=== PATIENT | female | born 1945 | race Two or more races ===

== ENCOUNTER → 2016-11-10 | Outpatient (CLI) | payer MEDICARE, MEDICAID, OTHER ==
[~2016-11-10] MED LIST: ASP81EC PO; CALCTAB62 OR; CERT200K SC; FENO1TAB PO; FENO35TA2 PO; LEVO50TA7 PO; MELO-85 PO; METH2.5T3 PO; METO25TA62 PO; PREDPOW63
[2016-11-10 09:48] LABS: Basophils # (auto) 0.1 uL; Basophils % (auto) 0.7 % (0.0-2.0); Eosinophils # (auto) 0.1 uL; Hematocrit 39.5 % (36.0-46.0); Hemoglobin 12.6 g/dL (12.2-16.2); Mean Corpuscular Hemoglobin 30.9 pg (28.0-32.0); Mean Corpuscular Hgb Conc. 31.9 g/dL (32.0-36.0); Mean Corpuscular Volume 96.9 fL (80.0-100.0); Mean Platelet Volume 7.5 fL (7.4-10.4); Monocytes # (auto) 0.7 uL; Monocytes % (auto) 7.9 % (0.0-12.0); Neutrophils # (auto) 4.6 uL; Neutrophils % (auto) 54.4 % (37.0-80.0); Platelet Count (auto) 287 10^3/uL (140-450); Red Cell Distribution Width 15.4 % (11.6-16.0); White Blood Cell 8.4 10^3/uL (4.4-10.8)
[2016-11-10 10:01] LABS: Urine Bilirubin Negative (Negative); Urine Blood TRACE /uL (Negative); Urine Color Yellow (Yellow); Urine Glucose Normal (Normal); Urine Ketone Negative (Negative); Urine Mucus FEW (None Seen); Urine RBC 4 /hpf (0 - 4); Urine Squamous Epithelial Cell FEW /hpf (<5); Urine Urobilinogen Normal (Negative); Urine WBC Clumps PRESENT /hpf (None Seen); Urine pH 5.5 (5.0-8.0)
[2016-11-10 10:06] LABS: Urine Nitrite POSITIVE (Negative)
[2016-11-10 10:29] LABS: BUN/Creatinine Ratio 16.5; Bilirubin, Total 0.5 mg/dL (0.2-1.0); Potassium 4.4 mmol/L (3.5-5.1); Total Protein 7.2 g/dL (6.4-8.2)
== END | disposition home or self-care (01) ==
LOC: LAB 09:11
DX: I10 Essential (primary) hypertension (principal); M06.9 Rheumatoid arthritis, unspecified
CPT/HCPCS: 36415; 80053; 80061; 81001; 84443; 85025; 85652

== ENCOUNTER → 2017-08-03 | Outpatient (CLI) | payer MEDICARE, MEDICAID, OTHER ==
[~2017-08-03] MED LIST changes: -MELO-85 PO; +MELO1TAB73 PO
[2017-08-03 08:30] LABS: Urine RBC None Seen /hpf (0 - 4)
[2017-08-03 09:15] LABS: Urine Bilirubin Negative (Negative); Urine Blood Negative /uL (Negative); Urine Color Yellow (Yellow); Urine Glucose Normal (Normal); Urine Ketone Negative (Negative); Urine Mucus FEW (None Seen); Urine Nitrite Negative (Negative); Urine Squamous Epithelial Cell FEW /hpf (<5); Urine Urobilinogen Normal (Negative); Urine pH 5.5 (5.0-8.0)
== END | disposition home or self-care (01) ==
LOC: LAB 08:21
PROVIDERS: ATTEND Family Medicine
DX: N39.0 Urinary tract infection, site not specified (principal)
CPT/HCPCS: 81001; 87086

== ENCOUNTER → 2017-09-07 | Outpatient (CLI) | payer MEDICARE, OTHER ==
[2017-09-07 12:00] LABS: Basophils # (auto) 0.1 uL; Basophils % (auto) 0.9 % (0.0-2.0); Eosinophils # (auto) 0.1 uL; Eosinophils % (auto) 1.8 % (0.0-7.0); Hematocrit 38.8 % (36.0-46.0); Lymphocytes # (auto) 1.8 uL; Lymphocytes % (auto) 32.9 % (10.0-50.0); Mean Corpuscular Hemoglobin 32.3 pg (28.0-32.0); Mean Corpuscular Hgb Conc. 33.4 g/dL (32.0-36.0); Mean Corpuscular Volume 96.7 fL (80.0-100.0); Mean Platelet Volume 7.8 fL (6.9-10.8); Monocytes # (auto) 0.6 uL; Monocytes % (auto) 10.6 % (0.0-12.0); Neutrophils % (auto) 53.8 % (37.0-80.0); Nucleated Red Blood Cells % 0.1 %; Platelet Count (auto) 216 10^3/uL (140-450); Red Cell Distribution Width 15.2 % (11.8-14.3); White Blood Cell 5.6 10^3/uL (4.4-10.8)
[2017-09-07 12:51] LABS: Albumin 3.8 g/dL (3.4-5.0); BUN/Creatinine Ratio 15.9; Bilirubin, Total 0.8 mg/dL (0.2-1.0); Calcium 8.8 mg/dL (8.5-10.1); Potassium 3.8 mmol/L (3.5-5.1); Total Protein 7.3 g/dL (6.4-8.2)
== END | disposition home or self-care (01) ==
LOC: LAB 11:31
DX: I10 Essential (primary) hypertension (principal); M06.9 Rheumatoid arthritis, unspecified; I70.0 Atherosclerosis of aorta; E78.00 Pure hypercholesterolemia, unspecified; D64.9 Anemia, unspecified; Z79.899 Other long term (current) drug therapy
CPT/HCPCS: 36415; 80053; 85025; 85652; 86141

== ENCOUNTER → 2017-10-19 | Outpatient (CLI) | payer MEDICARE, OTHER ==
[2017-10-19 09:03] LABS: Basophils # (auto) 0.1 uL; Basophils % (auto) 0.9 % (0.0-2.0); Eosinophils # (auto) 0.1 uL; Eosinophils % (auto) 0.7 % (0.0-7.0); Hematocrit 39.9 % (36.0-46.0); Hemoglobin 13.3 g/dL (12.2-16.2); Lymphocytes # (auto) 2.4 uL; Lymphocytes % (auto) 32.1 % (10.0-50.0); Mean Corpuscular Hemoglobin 32.3 pg (28.0-32.0); Mean Corpuscular Hgb Conc. 33.5 g/dL (32.0-36.0); Mean Corpuscular Volume 96.4 fL (80.0-100.0); Monocytes # (auto) 0.5 uL; Monocytes % (auto) 6.3 % (0.0-12.0); Neutrophils # (auto) 4.5 uL; Nucleated Red Blood Cells % 0.1 %; Platelet Count (auto) 227 10^3/uL (140-450); Red Blood Cells 4.14 10^6/uL (4.0-5.20); White Blood Cell 7.4 10^3/uL (4.4-10.8)
[2017-10-19 09:36] LABS: Urine Bacteria NONE SEEN /hpf (None Seen); Urine Blood Negative /uL (Negative); Urine Mucus FEW (None Seen); Urine Specific Gravity 1.014 (1.001-1.035); Urine WBC 5 /hpf (0 - 5)
[2017-10-19 09:54] LABS: Albumin 3.7 g/dL (3.4-5.0); BUN/Creatinine Ratio 13.3; Bilirubin, Total 0.8 mg/dL (0.2-1.0); Potassium 3.6 mmol/L (3.5-5.1); Total Protein 7.2 g/dL (6.4-8.2)
== END | disposition home or self-care (01) ==
LOC: LAB 08:26
PROVIDERS: ATTEND Nurse Practitioner
DX: E78.00 Pure hypercholesterolemia, unspecified (principal); M81.0 Age-related osteoporosis without current pathological fracture; R73.09 Other abnormal glucose
CPT/HCPCS: 36415; 80053; 80061; 81001; 82306; 83036; 84443; 85025

== ENCOUNTER → 2018-05-19 | Outpatient (CLI) | payer MEDICARE, OTHER ==
[2018-05-19 08:05] LABS: Basophils # (auto) 0.1 uL; Basophils % (auto) 0.7 % (0.0-2.0); Eosinophils # (auto) 0.1 uL; Eosinophils % (auto) 1.4 % (0.0-7.0); Hemoglobin 12.7 g/dL (12.2-16.2); Lymphocytes # (auto) 2.5 uL; Lymphocytes % (auto) 35.2 % (10.0-50.0); Mean Corpuscular Hemoglobin 32.4 pg (28.0-32.0); Mean Corpuscular Hgb Conc. 33.3 g/dL (32.0-36.0); Mean Corpuscular Volume 97.5 fL (80.0-100.0); Monocytes # (auto) 0.5 uL; Monocytes % (auto) 7.1 % (0.0-12.0); Neutrophils % (auto) 55.6 % (37.0-80.0); Platelet Count (auto) 228 10^3/uL (140-450); Red Cell Distribution Width 16.3 % (11.8-14.3); White Blood Cell 7.2 10^3/uL (4.4-10.8)
[2018-05-19 08:08] LABS: Urine Bacteria MANY /hpf (None Seen); Urine Blood Negative /uL (Negative); Urine Specific Gravity 1.011 (1.001-1.035); Urine WBC 37 /hpf (0 - 5)
[2018-05-19 09:16] LABS: Folate (Folic Acid) 13.47 ng/mL (5.38-24)
[2018-05-19 09:22] LABS: Albumin 3.5 g/dL (3.4-5.0); BUN/Creatinine Ratio 15.4; Bilirubin, Total 0.6 mg/dL (0.2-1.0); Calcium 8.3 mg/dL (8.5-10.1); Potassium 3.8 mmol/L (3.5-5.1); Total Protein 7.1 g/dL (6.4-8.2)
== END | disposition home or self-care (01) ==
LOC: LAB 07:29
PROVIDERS: ATTEND Nurse Practitioner
DX: M06.9 Rheumatoid arthritis, unspecified (principal); I10 Essential (primary) hypertension; E78.5 Hyperlipidemia, unspecified; R68.89 Other general symptoms and signs; E55.9 Vitamin D deficiency, unspecified; E78.00 Pure hypercholesterolemia, unspecified; Z79.899 Other long term (current) drug therapy
CPT/HCPCS: 36415; 80053; 80061; 81001; 82306; 82607; 82746; 84443; 85025

== ENCOUNTER → 2019-06-27 | Outpatient (CLI) | payer MEDICARE, OTHER ==
[2019-06-27 08:58] LABS: Urine Bacteria MANY /hpf (None Seen); Urine Blood Negative /uL (Negative); Urine Specific Gravity 1.013 (1.001-1.035); Urine WBC 65 /hpf (0 - 5)
[2019-06-27 09:02] LABS: Basophils # (auto) 0 uL; Basophils % (auto) 0.8 % (0.0-2.0); Eosinophils # (auto) 0.1 uL; Eosinophils % (auto) 1.8 % (0.0-7.0); Hematocrit 38.2 % (36.0-46.0); Hemoglobin 12.7 g/dL (12.2-16.2); Lymphocytes # (auto) 1.5 uL; Lymphocytes % (auto) 28.5 % (10.0-50.0); Mean Corpuscular Hemoglobin 32.8 pg (28.0-32.0); Mean Corpuscular Hgb Conc. 33.4 g/dL (32.0-36.0); Mean Corpuscular Volume 98.3 fL (80.0-100.0); Monocytes # (auto) 0.5 uL; Monocytes % (auto) 9.5 % (0.0-12.0); Neutrophils # (auto) 3.2 uL; Neutrophils % (auto) 59.4 % (37.0-80.0); Nucleated Red Blood Cells % 0.1 %; Platelet Count (auto) 214 10^3/uL (140-450); Red Blood Cells 3.89 10^6/uL (4.0-5.20); Red Cell Distribution Width 15.6 % (11.8-14.3); White Blood Cell 5.4 10^3/uL (4.4-10.8)
[2019-06-27 09:15] LABS: Potassium 3.7 mmol/L (3.5-5.1)
[2019-06-27 09:23] LABS: Albumin 3.7 g/dL (3.4-5.0); BUN/Creatinine Ratio 16.7; Bilirubin, Total 0.6 mg/dL (0.2-1.0); Calcium 8.8 mg/dL (8.5-10.1)
== END | disposition home or self-care (01) ==
LOC: LAB 08:22
PROVIDERS: ATTEND Nurse Practitioner
DX: E78.5 Hyperlipidemia, unspecified (principal); I10 Essential (primary) hypertension; E78.00 Pure hypercholesterolemia, unspecified; Z79.899 Other long term (current) drug therapy
CPT/HCPCS: 36415; 80053; 80061; 81001; 82270; 82306; 84443; 85025

== ENCOUNTER → 2019-08-29 | Outpatient (CLI) | payer MEDICARE, OTHER ==
[2019-08-29 11:38] LABS: Urine Bacteria NONE SEEN /hpf (None Seen); Urine Blood Negative /uL (Negative); Urine Hyaline Cast FEW /lpf (0 - 2); Urine Mucus FEW (None Seen); Urine Specific Gravity 1.014 (1.001-1.035); Urine WBC 15 /hpf (0 - 5)
== END | disposition home or self-care (01) ==
LOC: LAB 11:21
PROVIDERS: ATTEND Nurse Practitioner
DX: N39.0 Urinary tract infection, site not specified (principal); I10 Essential (primary) hypertension; E78.5 Hyperlipidemia, unspecified; E78.00 Pure hypercholesterolemia, unspecified
CPT/HCPCS: 81001; 87086

== ENCOUNTER → 2019-10-24 | Outpatient (CLI) | payer MEDICARE, OTHER ==
[~2019-10-24] MED LIST changes: -METO25TA62 PO; +METO25TA93 PO
[2019-10-24 14:47] LABS: Basophils # (auto) 0.1 uL; Basophils % (auto) 0.7 % (0.0-2.0); Eosinophils # (auto) 0.1 uL; Eosinophils % (auto) 0.9 % (0.0-7.0); Hematocrit 39.1 % (36.0-46.0); Hemoglobin 13.2 g/dL (12.2-16.2); Lymphocytes # (auto) 1.9 uL; Lymphocytes % (auto) 25.1 % (10.0-50.0); Mean Corpuscular Hemoglobin 33.1 pg (28.0-32.0); Mean Corpuscular Hgb Conc. 33.7 g/dL (32.0-36.0); Mean Corpuscular Volume 98.1 fL (80.0-100.0); Monocytes # (auto) 0.6 uL; Monocytes % (auto) 7.1 % (0.0-12.0); Neutrophils # (auto) 5.1 uL; Neutrophils % (auto) 66.2 % (37.0-80.0); Nucleated Red Blood Cells % 0.1 %; Platelet Count (auto) 224 10^3/uL (140-450); Red Blood Cells 3.99 10^6/uL (4.0-5.20); Red Cell Distribution Width 15.2 % (11.8-14.3); White Blood Cell 7.7 10^3/uL (4.4-10.8)
[2019-10-24 15:06] LABS: Albumin 3.7 g/dL (3.4-5.0); Calcium 9.3 mg/dL (8.5-10.1); Potassium 3.2 mmol/L (3.5-5.1)
[2019-10-24 15:10] LABS: BUN/Creatinine Ratio 14.6; Bilirubin, Total 0.3 mg/dL (0.2-1.0); CRP High Sensitivity 0.4 mg/dL (< 0.3); Total Protein 7.2 g/dL (6.4-8.2)
== END | disposition home or self-care (01) ==
LOC: LAB 14:01
PROVIDERS: ATTEND Internal Medicine Rheumatology
DX: M05.79 Rheumatoid arthritis with rheumatoid factor of multiple sites without organ or systems involvement (principal); M19.90 Unspecified osteoarthritis, unspecified site; E78.01 Familial hypercholesterolemia
CPT/HCPCS: 36415; 80053; 85025; 85652; 86141; 86200; 86431

== ENCOUNTER → 2021-03-25 | Outpatient (CLI) | payer MEDICARE, OTHER ==
[~2021-03-25] MED LIST changes: -ASP81EC PO; +ASPI-394 PO; +METH2.5T PO; -METH2.5T3 PO
[2021-03-25 08:30] LABS: Basophils # (auto) 0 10 ^3/uL (0-0.2); Basophils % (auto) 0.6 % (0.0-2.0); Eosinophils # (auto) 0.1 10 ^3/uL (0-0.8); Eosinophils % (auto) 1.5 % (0.0-7.0); Hematocrit 37.5 % (36.0-46.0); Hemoglobin 12.8 g/dL (12.2-16.2); Lymphocytes # (auto) 2.7 10 ^3/uL (0.4-5.4); Lymphocytes % (auto) 37.3 % (10.0-50.0); Mean Corpuscular Hemoglobin 32.2 pg (28.0-32.0); Mean Corpuscular Volume 94.6 fL (80.0-100.0); Monocytes # (auto) 0.5 10 ^3/uL (0-1.3); Monocytes % (auto) 6.6 % (0.0-12.0); Neutrophils # (auto) 3.9 10 ^3/uL (1.6-8.6); Platelet Count (auto) 219 10^3/uL (140-450); Red Blood Cells 3.97 10^6/uL (4.0-5.20); Red Cell Distribution Width 15.1 % (11.8-14.3); White Blood Cell 7.2 10^3/uL (4.4-10.8)
[2021-03-25 08:47] LABS: Urine Bacteria MANY /hpf (None Seen); Urine Blood Negative /uL (Negative); Urine Specific Gravity 1.013 (1.001-1.035); Urine WBC 110 /hpf (0 - 5); Urine WBC Clumps PRESENT /hpf (None Seen)
[2021-03-25 08:56] LABS: Albumin 3.6 g/dL (3.4-5.0); Potassium 3.7 mmol/L (3.5-5.1)
[2021-03-25 09:04] LABS: BUN/Creatinine Ratio 18.2; Bilirubin, Total 0.5 mg/dL (0.2-1.0); Calcium 8.7 mg/dL (8.5-10.1); Total Protein 6.9 g/dL (6.4-8.2)
== END | disposition home or self-care (01) ==
LOC: LAB 08:14
PROVIDERS: ATTEND Student in an Organized Health Care Education/Training Program
DX: I10 Essential (primary) hypertension (principal); E03.9 Hypothyroidism, unspecified; R73.03 Prediabetes
CPT/HCPCS: 36415; 80053; 80061; 81001; 83036; 84443; 85025

== ENCOUNTER → 2021-05-06 | Outpatient (CLI) | payer MEDICARE, OTHER ==
[2021-05-06 16:13] LABS: Basophils # (auto) 0 10 ^3/uL (0-0.2); Basophils % (auto) 0.5 % (0.0-2.0); Eosinophils # (auto) 0.1 10 ^3/uL (0-0.8); Eosinophils % (auto) 1.2 % (0.0-7.0); Hematocrit 38.4 % (36.0-46.0); Lymphocytes # (auto) 1.4 10 ^3/uL (0.4-5.4); Lymphocytes % (auto) 16.5 % (10.0-50.0); Mean Corpuscular Hemoglobin 32.2 pg (28.0-32.0); Mean Corpuscular Hgb Conc. 33.7 g/dL (32.0-36.0); Mean Corpuscular Volume 95.4 fL (80.0-100.0); Monocytes # (auto) 0.4 10 ^3/uL (0-1.3); Monocytes % (auto) 4.9 % (0.0-12.0); Neutrophils # (auto) 6.3 10 ^3/uL (1.6-8.6); Neutrophils % (auto) 76.9 % (37.0-80.0); Nucleated Red Blood Cells % 0.1 %; Red Blood Cells 4.03 10^6/uL (4.0-5.20); Red Cell Distribution Width 15.8 % (11.8-14.3); White Blood Cell 8.2 10^3/uL (4.4-10.8)
[2021-05-06 16:35] LABS: Potassium 3.8 mmol/L (3.5-5.1)
[2021-05-06 16:41] LABS: Albumin 3.8 g/dL (3.4-5.0); Bilirubin, Total 0.4 mg/dL (0.2-1.0); CRP High Sensitivity 0.39 mg/dL (< 0.3); Total Protein 7.4 g/dL (6.4-8.2)
== END | disposition home or self-care (01) ==
LOC: LAB 15:28
PROVIDERS: ATTEND Internal Medicine Rheumatology
DX: Z11.1 Encounter for screening for respiratory tuberculosis (principal); M81.0 Age-related osteoporosis without current pathological fracture; M05.79 Rheumatoid arthritis with rheumatoid factor of multiple sites without organ or systems involvement
CPT/HCPCS: 36415; 80053; 82306; 85025; 85652; 86141; 86200; 86431

== ENCOUNTER → 2022-04-07 | Outpatient (CLI) | payer MEDICARE, OTHER ==
[2022-04-07 08:00] LABS: Basophils # (auto) 0 10 ^3/uL (0-0.2); Basophils % (auto) 0.4 % (0.0-2.0); Eosinophils # (auto) 0.1 10 ^3/uL (0-0.8); Eosinophils % (auto) 1.8 % (0.0-7.0); Hematocrit 36.5 % (36.0-46.0); Lymphocytes # (auto) 2.6 10 ^3/uL (0.4-5.4); Lymphocytes % (auto) 35.5 % (10.0-50.0); Mean Corpuscular Hemoglobin 32.2 pg (28.0-32.0); Mean Corpuscular Hgb Conc. 32.9 g/dL (32.0-36.0); Mean Corpuscular Volume 98.1 fL (80.0-100.0); Monocytes # (auto) 0.5 10 ^3/uL (0-1.3); Monocytes % (auto) 7.5 % (0.0-12.0); Neutrophils % (auto) 54.8 % (37.0-80.0); Nucleated Red Blood Cells % 0.1 %; Red Blood Cells 3.72 10^6/uL (4.0-5.20); Red Cell Distribution Width 14.7 % (11.8-14.3); White Blood Cell 7.2 10^3/uL (4.4-10.8)
[2022-04-07 08:28] LABS: Albumin 3.4 g/dL (3.4-5.0); Calcium 8.4 mg/dL (8.5-10.1); Potassium 3.6 mmol/L (3.5-5.1); Urine Bacteria MOD /hpf (None Seen); Urine Blood Negative /uL (Negative); Urine Specific Gravity 1.013 (1.001-1.035); Urine WBC 221 /hpf (0 - 5)
[2022-04-07 08:32] LABS: BUN/Creatinine Ratio 17.8; Bilirubin, Total 0.4 mg/dL (0.2-1.0); Total Protein 6.5 g/dL (6.4-8.2)
== END | disposition home or self-care (01) ==
LOC: LAB 07:28
PROVIDERS: ATTEND Student in an Organized Health Care Education/Training Program
DX: N39.0 Urinary tract infection, site not specified (principal); I10 Essential (primary) hypertension
CPT/HCPCS: 36415; 80053; 80061; 81001; 84443; 85025; 87086

== ENCOUNTER 2022-06-09 11:35 | Emergency (ER) | payer MEDICARE, OTHER | END 2022-06-09 14:25 | disposition left against medical advice (07) | LOC: ER 11:35 | DX: R25.1 Tremor, unspecified (principal); Z53.21 Procedure and treatment not carried out due to patient leaving prior to being seen by health care provider ==

== ENCOUNTER 2022-07-04 18:50 | Inpatient (IN) | payer MEDICARE, OTHER ==
[~2022-07-04] VITALS: Ht 157.5 cm; Wt 90.6 kg
[2022-07-04 20:16] LABS: Basophils # (auto) 0.1 10 ^3/uL (0-0.2); Basophils % (auto) 0.8 % (0.0-2.0); Eosinophils # (auto) 0.3 10 ^3/uL (0-0.8); Hematocrit 38.7 % (36.0-46.0); Lymphocytes # (auto) 0.9 10 ^3/uL (0.4-5.4); Lymphocytes % (auto) 10.7 % (10.0-50.0); Mean Corpuscular Hemoglobin 32.3 pg (28.0-32.0); Mean Corpuscular Hgb Conc. 33.7 g/dL (32.0-36.0); Monocytes # (auto) 0.7 10 ^3/uL (0-1.3); Monocytes % (auto) 7.7 % (0.0-12.0); Neutrophils # (auto) 6.8 10 ^3/uL (1.6-8.6); Neutrophils % (auto) 77.8 % (37.0-80.0); Red Blood Cells 4.03 10^6/uL (4.0-5.20); Red Cell Distribution Width 16.7 % (11.8-14.3); White Blood Cell 8.8 10^3/uL (4.4-10.8)
[2022-07-04 20:28] LABS: Albumin 3.3 g/dL (3.4-5.0); Calcium 8.9 mg/dL (8.5-10.1); Potassium 3.9 mmol/L (3.5-5.1)
[2022-07-04 20:31] LABS: BUN/Creatinine Ratio 13.5; Bilirubin, Total 0.6 mg/dL (0.2-1.0); Total Protein 6.5 g/dL (6.4-8.2)
[2022-07-04] MEDS ORDERED: methylPREDNISolone SOD SUCC 125 MG/2 ML VL IV ONE (22:00)
[2022-07-04] MEDS ORDERED: IOHEXOL 350 MG/ML 100ML IJ ONE (23:24)
[2022-07-04] MEDS ORDERED: NITROGLYCERIN 0.4 MG SL TAB SL PRN (23:45)
[2022-07-04] MEDS ORDERED: MORPHINE SULFATE INJ 2 MG/ml SYRG IV PRN (23:45)
[2022-07-04] MEDS ORDERED: cefTRIAXone 1GM/50ML D5W 50 ML IV ONE (23:45)
[2022-07-04] MEDS ORDERED: HYDROcodone-ACET 5/325MG TAB PO PRN (23:45)
[2022-07-04] MEDS ORDERED: ACETAMINOPHEN 325 MG TAB PO PRN (23:45)
[2022-07-04] MEDS ORDERED: ONDANSETRON HCL 4 MG/2 ML VIAL IV PRN (23:45)
[2022-07-04] MEDS ORDERED: DOCUSATE SOD 100 MG CAP PO PRN (23:45)
[2022-07-04 23:49] VITALS: BP 119/67
[2022-07-05] MEDS: IPRATROPIUM BROM 0.5 MG/2.5ML INH SOL NEB SCH ×3 (06:08→20:43)
[2022-07-05] MEDS: ALBUTEROL SULF 2.5 MG/0.5ML(0.5%) NEB SOLN NEB SCH ×3 (06:08→20:43)
[2022-07-05 06:19] LABS: Basophils # (auto) 0.1 10 ^3/uL (0-0.2); Basophils % (auto) 0.6 % (0.0-2.0); Eosinophils # (auto) 0 10 ^3/uL (0-0.8); Eosinophils % (auto) 0.5 % (0.0-7.0); Hematocrit 38.2 % (36.0-46.0); Hemoglobin 12.7 g/dL (12.2-16.2); Lymphocytes # (auto) 0.8 10 ^3/uL (0.4-5.4); Lymphocytes % (auto) 8.5 % (10.0-50.0); Mean Corpuscular Hemoglobin 32.2 pg (28.0-32.0); Mean Corpuscular Hgb Conc. 33.3 g/dL (32.0-36.0); Mean Corpuscular Volume 96.9 fL (80.0-100.0); Monocytes # (auto) 0.2 10 ^3/uL (0-1.3); Monocytes % (auto) 2.1 % (0.0-12.0); Neutrophils # (auto) 7.8 10 ^3/uL (1.6-8.6); Neutrophils % (auto) 88.3 % (37.0-80.0); Red Blood Cells 3.94 10^6/uL (4.0-5.20); Red Cell Distribution Width 16.4 % (11.8-14.3); White Blood Cell 8.8 10^3/uL (4.4-10.8)
[2022-07-05 06:34] LABS: BUN/Creatinine Ratio 19.2; Calcium 8.9 mg/dL (8.5-10.1); Potassium 4.7 mmol/L (3.5-5.1)
[2022-07-05] MEDS: LEVOTHYROXINE SODIUM 50 MCG TAB PO SCH (07:11)
[2022-07-05] MEDS ORDERED: ENOXAPARIN SOD 30 MG/0.3 ML SYRINGE SC SCH (10:00)
[2022-07-05] MEDS: cefTRIAXone 1GM/50ML D5W 50 ML IV SCH (10:28)
[2022-07-05] MEDS: ASPirin-EC 81 mg tab PO SCH (10:28)
[2022-07-05] MEDS: ENOXAPARIN SOD 40 MG/0.4 ML SYRINGE SC SCH (10:29)
[2022-07-05] MEDS: AZITHROMYCIN 500MG/ 250ML 250 ML IV SCH (14:25)
[2022-07-05 18:10] VITALS: BP 120/66
[2022-07-05 19:41] VITALS: BP 120/66
[2022-07-05 19:51] VITALS: BP 120/73
[2022-07-05 22:00] VITALS: BP 120/67
[2022-07-06 05:00] VITALS: BP 112/63
[2022-07-06] MEDS: ALBUTEROL SULF 2.5 MG/0.5ML(0.5%) NEB SOLN NEB SCH ×3 (06:21→18:42)
[2022-07-06] MEDS: IPRATROPIUM BROM 0.5 MG/2.5ML INH SOL NEB SCH ×3 (06:21→18:42)
[2022-07-06] MEDS: LEVOTHYROXINE SODIUM 50 MCG TAB PO SCH (06:51)
[2022-07-06 08:30] VITALS: BP 96/57
[2022-07-06] MEDS: ASPirin-EC 81 mg tab PO SCH (08:36)
[2022-07-06] MEDS: cefTRIAXone 1GM/50ML D5W 50 ML IV SCH (08:36)
[2022-07-06] MEDS: AZITHROMYCIN 500MG/ 250ML 250 ML IV SCH (08:36)
[2022-07-06] MEDS: ENOXAPARIN SOD 40 MG/0.4 ML SYRINGE SC SCH (08:36)
[2022-07-06 13:08] VITALS: BP 108/60
[2022-07-06 16:48] VITALS: BP 122/65
[2022-07-06 22:00] VITALS: BP 129/75
[2022-07-07] VITALS (7 sets, daily range): BP systolic 104–136; BP diastolic 60–72
[2022-07-07] MEDS: LEVOTHYROXINE SODIUM 50 MCG TAB PO SCH (06:51)
[2022-07-07] MEDS: ALBUTEROL SULF 2.5 MG/0.5ML(0.5%) NEB SOLN NEB SCH ×3 (07:13→18:36)
[2022-07-07] MEDS: IPRATROPIUM BROM 0.5 MG/2.5ML INH SOL NEB SCH ×3 (07:14→18:36)
[2022-07-07] MEDS: cefTRIAXone 1GM/50ML D5W 50 ML IV SCH (09:03)
[2022-07-07] MEDS: ASPirin-EC 81 mg tab PO SCH (09:55)
[2022-07-07] MEDS: ENOXAPARIN SOD 40 MG/0.4 ML SYRINGE SC SCH (09:55)
[2022-07-07] MEDS: predniSONE 5 MG TAB PO SCH (09:56)
[2022-07-07] MEDS: AZITHROMYCIN 500MG/ 250ML 250 ML IV SCH (09:56)
[2022-07-08 05:43] VITALS: BP 122/72
[2022-07-08] MEDS: LEVOTHYROXINE SODIUM 50 MCG TAB PO SCH (06:21)
[2022-07-08] MEDS: IPRATROPIUM BROM 0.5 MG/2.5ML INH SOL NEB SCH ×3 (06:23→19:05)
[2022-07-08] MEDS: ALBUTEROL SULF 2.5 MG/0.5ML(0.5%) NEB SOLN NEB SCH ×3 (06:23→19:05)
[2022-07-08 08:00] VITALS: BP 118/59
[2022-07-08] MEDS: AZITHROMYCIN 500MG/ 250ML 250 ML IV SCH (10:36)
[2022-07-08] MEDS: ASPirin-EC 81 mg tab PO SCH (10:36)
[2022-07-08] MEDS: predniSONE 5 MG TAB PO SCH (10:36)
[2022-07-08] MEDS: ENOXAPARIN SOD 40 MG/0.4 ML SYRINGE SC SCH (10:36)
[2022-07-08] MEDS: cefTRIAXone 1GM/50ML D5W 50 ML IV SCH (10:36)
[2022-07-08 12:00] VITALS: BP 111/63
[2022-07-08 16:00] VITALS: BP 100/54
[2022-07-08 20:00] VITALS: BP 113/62
[2022-07-08 22:00] VITALS: BP 103/56
[2022-07-09 04:35] VITALS: BP 95/58
[2022-07-09] MEDS: ALBUTEROL SULF 2.5 MG/0.5ML(0.5%) NEB SOLN NEB SCH ×3 (06:18→19:06)
[2022-07-09] MEDS: IPRATROPIUM BROM 0.5 MG/2.5ML INH SOL NEB SCH ×3 (06:18→19:06)
[2022-07-09] MEDS: LEVOTHYROXINE SODIUM 50 MCG TAB PO SCH (06:26)
[2022-07-09 07:31] LABS: Basophils # (auto) 0 10 ^3/uL (0-0.2); Basophils % (auto) 0.4 % (0.0-2.0); Eosinophils # (auto) 0.2 10 ^3/uL (0-0.8); Eosinophils % (auto) 2.3 % (0.0-7.0); Hematocrit 33.8 % (36.0-46.0); Lymphocytes # (auto) 1.9 10 ^3/uL (0.4-5.4); Lymphocytes % (auto) 21.9 % (10.0-50.0); Mean Corpuscular Hemoglobin 31.5 pg (28.0-32.0); Mean Corpuscular Hgb Conc. 32.6 g/dL (32.0-36.0); Mean Corpuscular Volume 96.6 fL (80.0-100.0); Monocytes # (auto) 0.8 10 ^3/uL (0-1.3); Monocytes % (auto) 9.2 % (0.0-12.0); Neutrophils # (auto) 5.7 10 ^3/uL (1.6-8.6); Neutrophils % (auto) 66.2 % (37.0-80.0); White Blood Cell 8.6 10^3/uL (4.4-10.8)
[2022-07-09 07:32] LABS: Albumin 2.5 g/dL (3.4-5.0); BUN/Creatinine Ratio 17.8; Calcium 8.1 mg/dL (8.5-10.1); Potassium 3.6 mmol/L (3.5-5.1)
[2022-07-09 07:34] LABS: Bilirubin, Total 0.4 mg/dL (0.2-1.0); Total Protein 5.1 g/dL (6.4-8.2)
[2022-07-09 09:00] VITALS: BP 109/55
[2022-07-09] MEDS: AZITHROMYCIN 500MG/ 250ML 250 ML IV SCH (09:22)
[2022-07-09] MEDS: cefTRIAXone 1GM/50ML D5W 50 ML IV SCH (09:22)
[2022-07-09] MEDS: ASPirin-EC 81 mg tab PO SCH (09:26)
[2022-07-09] MEDS: ENOXAPARIN SOD 40 MG/0.4 ML SYRINGE SC SCH (09:26)
[2022-07-09] MEDS: predniSONE 5 MG TAB PO SCH (09:26)
[2022-07-09] MEDS ORDERED: FUROSEMIDE 20 MG/2 ML VIAL IV ONE (09:30)
[2022-07-09] MEDS ORDERED: IODIXANOL 320MG/ML 100ML BTL IV ONE (09:44)
[2022-07-09] MEDS ORDERED: LIDOCAINE 2%HCL (LOCAL ANESTH.) INJ 20ML MDV ONE (09:44)
[2022-07-09 13:00] VITALS: BP 112/66
[2022-07-09 17:00] VITALS: BP 105/62
[2022-07-10 04:13] LABS: Basophils # (auto) 0.1 10 ^3/uL (0-0.2); Basophils % (auto) 0.6 % (0.0-2.0); Eosinophils # (auto) 0.1 10 ^3/uL (0-0.8); Eosinophils % (auto) 1.2 % (0.0-7.0); Hematocrit 33.8 % (36.0-46.0); Hemoglobin 11.2 g/dL (12.2-16.2); Lymphocytes # (auto) 2.1 10 ^3/uL (0.4-5.4); Lymphocytes % (auto) 20.1 % (10.0-50.0); Mean Corpuscular Hemoglobin 31.8 pg (28.0-32.0); Mean Corpuscular Volume 96.3 fL (80.0-100.0); Monocytes # (auto) 0.9 10 ^3/uL (0-1.3); Monocytes % (auto) 8.4 % (0.0-12.0); Neutrophils # (auto) 7.1 10 ^3/uL (1.6-8.6); Neutrophils % (auto) 69.7 % (37.0-80.0); Red Blood Cells 3.51 10^6/uL (4.0-5.20); White Blood Cell 10.2 10^3/uL (4.4-10.8)
[2022-07-10 04:57] VITALS: BP 113/59
[2022-07-10] MEDS: LEVOTHYROXINE SODIUM 50 MCG TAB PO SCH (06:03)
[2022-07-10] MEDS: IPRATROPIUM BROM 0.5 MG/2.5ML INH SOL NEB SCH ×3 (07:00→19:15)
[2022-07-10] MEDS: ALBUTEROL SULF 2.5 MG/0.5ML(0.5%) NEB SOLN NEB SCH ×3 (07:00→19:15)
[2022-07-10] MEDS: cefTRIAXone 1GM/50ML D5W 50 ML IV SCH (08:17)
[2022-07-10 08:20] VITALS: BP 109/57
[2022-07-10 09:00] VITALS: BP 109/57
[2022-07-10] MEDS: AZITHROMYCIN 500MG/ 250ML 250 ML IV SCH (10:05)
[2022-07-10] MEDS: predniSONE 5 MG TAB PO SCH (10:06)
[2022-07-10] MEDS: ENOXAPARIN SOD 40 MG/0.4 ML SYRINGE SC SCH (10:06)
[2022-07-10] MEDS: ASPirin-EC 81 mg tab PO SCH (10:06)
[2022-07-10 13:00] VITALS: BP 108/67
[2022-07-10 17:00] VITALS: BP 105/56
[2022-07-10] MEDS: methylPREDNISolone SOD SUCC 40 MG/ML VL IV SCH (21:03)
[2022-07-10 21:53] VITALS: BP 106/57
[2022-07-11 01:03] VITALS: BP 106/57
[2022-07-11 04:47] VITALS: BP 110/72
[2022-07-11] MEDS: LEVOTHYROXINE SODIUM 50 MCG TAB PO SCH (06:14)
[2022-07-11] MEDS: IPRATROPIUM BROM 0.5 MG/2.5ML INH SOL NEB SCH ×3 (07:30→18:48)
[2022-07-11] MEDS: ALBUTEROL SULF 2.5 MG/0.5ML(0.5%) NEB SOLN NEB SCH ×3 (07:30→18:48)
[2022-07-11] MEDS: ASPirin-EC 81 mg tab PO SCH (08:32)
[2022-07-11] MEDS: ENOXAPARIN SOD 40 MG/0.4 ML SYRINGE SC SCH (08:33)
[2022-07-11] MEDS: cefTRIAXone 1GM/50ML D5W 50 ML IV SCH (08:33)
[2022-07-11] MEDS: methylPREDNISolone SOD SUCC 40 MG/ML VL IV SCH (08:33)
[2022-07-11] MEDS: AZITHROMYCIN 500MG/ 250ML 250 ML IV SCH (08:33)
[2022-07-11 08:48] VITALS: BP 103/59
[2022-07-11 12:20] VITALS: BP 103/59
[2022-07-11 17:08] VITALS: BP 114/60
[2022-07-11 22:00] VITALS: BP 111/60
[2022-07-12 04:45] LABS: Basophils # (auto) 0 10 ^3/uL (0-0.2); Basophils % (auto) 0.1 % (0.0-2.0); Eosinophils # (auto) 0 10 ^3/uL (0-0.8); Hematocrit 31.2 % (36.0-46.0); Hemoglobin 10.2 g/dL (12.2-16.2); Lymphocytes # (auto) 1.1 10 ^3/uL (0.4-5.4); Lymphocytes % (auto) 7.8 % (10.0-50.0); Mean Corpuscular Hemoglobin 31.4 pg (28.0-32.0); Mean Corpuscular Hgb Conc. 32.6 g/dL (32.0-36.0); Mean Corpuscular Volume 96.4 fL (80.0-100.0); Monocytes # (auto) 0.8 10 ^3/uL (0-1.3); Monocytes % (auto) 5.7 % (0.0-12.0); Neutrophils # (auto) 12.8 10 ^3/uL (1.6-8.6); Neutrophils % (auto) 86.4 % (37.0-80.0); Red Blood Cells 3.24 10^6/uL (4.0-5.20); White Blood Cell 14.8 10^3/uL (4.4-10.8)
[2022-07-12 05:00] VITALS: BP 111/59
[2022-07-12 05:08] LABS: BUN/Creatinine Ratio 26.3; Calcium 8.3 mg/dL (8.5-10.1); Potassium 4.2 mmol/L (3.5-5.1)
[2022-07-12] MEDS: LEVOTHYROXINE SODIUM 50 MCG TAB PO SCH (05:49)
[2022-07-12] MEDS: IPRATROPIUM BROM 0.5 MG/2.5ML INH SOL NEB SCH ×2 (07:25→12:52)
[2022-07-12] MEDS: ALBUTEROL SULF 2.5 MG/0.5ML(0.5%) NEB SOLN NEB SCH ×2 (07:25→12:52)
[2022-07-12 08:20] VITALS: BP 97/55
[2022-07-12] MEDS: ASPirin-EC 81 mg tab PO SCH (09:06)
[2022-07-12] MEDS: AZITHROMYCIN 500MG/ 250ML 250 ML IV SCH (09:06)
[2022-07-12] MEDS: cefTRIAXone 1GM/50ML D5W 50 ML IV SCH (09:06)
[2022-07-12] MEDS: ENOXAPARIN SOD 40 MG/0.4 ML SYRINGE SC SCH (09:07)
[2022-07-12] MEDS ORDERED: predniSONE 5 MG TAB PO SCH (10:00)
[2022-07-12 12:25] VITALS: BP 106/56
[2022-07-12 12:28] VITALS: BP 123/68
[2022-07-12] MEDS ORDERED: LEVO750T8 PO (16:19)
== END 2022-07-12 14:38 | disposition home health service (06) | DRG 193 ==
LOC: ER 18:51 → TELE 23:34 → TELE-WESTW 07-05 18:23
PROVIDERS: ADMIT Nurse Practitioner Family; ATTEND Internal Medicine Pulmonary Disease
DX: J18.9 Pneumonia, unspecified organism (principal); J96.01 Acute respiratory failure with hypoxia; J98.11 Atelectasis; N28.89 Other specified disorders of kidney and ureter; M06.9 Rheumatoid arthritis, unspecified; E03.9 Hypothyroidism, unspecified; E66.9 Obesity, unspecified; I10 Essential (primary) hypertension; Z20.822 Contact with and (suspected) exposure to COVID-19; Z86.16 Personal history of COVID-19; M19.90 Unspecified osteoarthritis, unspecified site; Z79.899 Other long term (current) drug therapy; R79.89 Other specified abnormal findings of blood chemistry; Z90.49 Acquired absence of other specified parts of digestive tract; Z68.35 Body mass index [BMI] 35.0-35.9, adult; Z87.440 Personal history of urinary (tract) infections
CPT/HCPCS: 36415; 36600; 71045; 71275; 76775; 80048; 80053; 82805; 83605; 83615; 83880; 84443; 84484; 85025; 85379; 85652; 86141; 87040; 93005; 94640; 96365; 96375; 97110; 97116; 97530; G0378; J0696; Q9967

== ENCOUNTER → 2022-09-24 | Outpatient (CLI) | payer MEDICARE, OTHER ==
[~2022-09-24] MED LIST changes: -CERT200K SC; +LEVO750T8 PO; -METH2.5T PO
== END | disposition home or self-care (01) ==
LOC: RT 13:26
PROVIDERS: ATTEND Internal Medicine Pulmonary Disease
DX: J96.11 Chronic respiratory failure with hypoxia (principal)
CPT/HCPCS: 94618

== ENCOUNTER → 2022-10-08 | Outpatient (CLI) | payer MEDICARE, OTHER ==
[2022-10-08 07:52] LABS: Basophils # (auto) 0 10 ^3/uL (0-0.2); Basophils % (auto) 0.4 % (0.0-2.0); Eosinophils # (auto) 0.1 10 ^3/uL (0-0.8); Eosinophils % (auto) 0.7 % (0.0-7.0); Hematocrit 38.2 % (36.0-46.0); Hemoglobin 12.5 g/dL (12.2-16.2); Lymphocytes # (auto) 2.6 10 ^3/uL (0.4-5.4); Lymphocytes % (auto) 22.5 % (10.0-50.0); Mean Corpuscular Hemoglobin 30.4 pg (28.0-32.0); Mean Corpuscular Hgb Conc. 32.7 g/dL (32.0-36.0); Mean Corpuscular Volume 92.9 fL (80.0-100.0); Monocytes # (auto) 0.7 10 ^3/uL (0-1.3); Monocytes % (auto) 6.2 % (0.0-12.0); Neutrophils # (auto) 8.2 10 ^3/uL (1.6-8.6); Neutrophils % (auto) 70.2 % (37.0-80.0); Red Blood Cells 4.11 10^6/uL (4.0-5.20); Red Cell Distribution Width 14.9 % (11.8-14.3); White Blood Cell 11.6 10^3/uL (4.4-10.8)
[2022-10-08 08:06] LABS: Albumin 3.4 g/dL (3.4-5.0); Calcium 8.9 mg/dL (8.5-10.1); Potassium 4.1 mmol/L (3.5-5.1)
[2022-10-08 08:12] LABS: BUN/Creatinine Ratio 18.9; Bilirubin, Total 0.4 mg/dL (0.2-1.0); Total Protein 6.4 g/dL (6.4-8.2)
[2022-10-08 08:27] LABS: Urine Bacteria MANY /hpf (None Seen); Urine Blood 1+ /uL (Negative); Urine Mucus FEW (None Seen); Urine Specific Gravity 1.014 (1.001-1.035); Urine WBC 1213 /hpf (0 - 5); Urine WBC Clumps PRESENT /hpf (None Seen)
== END | disposition home or self-care (01) ==
LOC: LAB 07:26
PROVIDERS: ATTEND Student in an Organized Health Care Education/Training Program
DX: E03.8 Other specified hypothyroidism (principal); R03.0 Elevated blood-pressure reading, without diagnosis of hypertension
CPT/HCPCS: 36415; 80053; 80061; 81001; 84439; 84443; 85025

== ENCOUNTER 2022-11-26 15:22 | Inpatient (IN) | payer MEDICARE, OTHER ==
[~2022-11-26] VITALS: Ht 154.9 cm; Wt 94.8 kg
[2022-11-26 16:29] LABS: Basophils # (auto) 0.1 10 ^3/uL (0-0.2); Basophils % (auto) 0.4 % (0.0-2.0); Eosinophils # (auto) 0.1 10 ^3/uL (0-0.8); Eosinophils % (auto) 0.6 % (0.0-7.0); Hematocrit 40.1 % (36.0-46.0); Hemoglobin 13.5 g/dL (12.2-16.2); Lymphocytes # (auto) 2.2 10 ^3/uL (0.4-5.4); Lymphocytes % (auto) 16.3 % (10.0-50.0); Mean Corpuscular Hemoglobin 30.9 pg (28.0-32.0); Mean Corpuscular Hgb Conc. 33.7 g/dL (32.0-36.0); Mean Corpuscular Volume 91.5 fL (80.0-100.0); Monocytes # (auto) 0.9 10 ^3/uL (0-1.3); Monocytes % (auto) 6.5 % (0.0-12.0); Neutrophils # (auto) 10.5 10 ^3/uL (1.6-8.6); Neutrophils % (auto) 76.2 % (37.0-80.0); Nucleated Red Blood Cells % 0.1 %; Red Blood Cells 4.38 10^6/uL (4.0-5.20); Red Cell Distribution Width 15.3 % (11.8-14.3); White Blood Cell 13.8 10^3/uL (4.4-10.8)
[2022-11-26 16:45] LABS: Albumin 3.3 g/dL (3.4-5.0); BUN/Creatinine Ratio 11.5; Calcium 8.7 mg/dL (8.5-10.1); Potassium 3.3 mmol/L (3.5-5.1)
[2022-11-26 16:48] LABS: Bilirubin, Total 0.5 mg/dL (0.2-1.0); Total Protein 6.6 g/dL (6.4-8.2)
[2022-11-26] MEDS ORDERED: LACTATED RINGER'S 500 ML IV ONE (17:00)
[2022-11-26] MEDS ORDERED: POTASSIUM CHL 20 Meq TABLET PO ONE (17:00)
[2022-11-26] MEDS ORDERED: AZITHROMYCIN 500MG/ 250ML 250 ML IV ONE (19:00)
[2022-11-26] MEDS ORDERED: cefTRIAXone 1GM/50ML D5W 50 ML IV ONE (19:00)
[2022-11-26] MEDS ORDERED: IOHEXOL 300 MG/ML 100ML BOTTLE IJ ONE (20:14)
[2022-11-26] MEDS ORDERED: NITROGLYCERIN 0.4 MG SL TAB SL PRN (20:45)
[2022-11-26] MEDS ORDERED: TEMAZEPAM 15 MG CAP PO PRN (20:45)
[2022-11-26] MEDS ORDERED: MORPHINE SULFATE INJ 2 MG/ml SYRG IV PRN (20:45)
[2022-11-26] MEDS ORDERED: ACETAMINOPHEN 325 MG TAB PO PRN (20:45)
[2022-11-26] MEDS ORDERED: ONDANSETRON HCL 4 MG/2 ML VIAL IV PRN (20:45)
[2022-11-26] MEDS ORDERED: ALBUTEROL MEDNEB 2.5 mg/3ml NEB NEB PRN (21:30)
[2022-11-26 21:38] VITALS: BP 124/61
[2022-11-26 22:51] LABS: Urine Bacteria NONE SEEN /hpf (None Seen); Urine Blood Negative /uL (Negative); Urine Budding Yeast FEW /hpf (None Seen); Urine Specific Gravity 1.028 (1.001-1.035); Urine WBC 129 /hpf (0 - 5)
[2022-11-27] MEDS ORDERED: ALBUMIN 5% 250 ML IV ONE (02:45)
[2022-11-27] MEDS ORDERED: NOREPINEPHRINE 8 MG/250ML KIT 250 ML IV SCH (03:30)
[2022-11-27 05:10] LABS: Basophils # (auto) 0.1 10 ^3/uL (0-0.2); Basophils % (auto) 0.4 % (0.0-2.0); Eosinophils # (auto) 0 10 ^3/uL (0-0.8); Eosinophils % (auto) 0.2 % (0.0-7.0); Hematocrit 35.2 % (36.0-46.0); Hemoglobin 11.7 g/dL (12.2-16.2); Lymphocytes # (auto) 1.7 10 ^3/uL (0.4-5.4); Lymphocytes % (auto) 13.1 % (10.0-50.0); Mean Corpuscular Hemoglobin 30.6 pg (28.0-32.0); Mean Corpuscular Hgb Conc. 33.2 g/dL (32.0-36.0); Mean Corpuscular Volume 92.2 fL (80.0-100.0); Monocytes # (auto) 1.1 10 ^3/uL (0-1.3); Monocytes % (auto) 8.5 % (0.0-12.0); Neutrophils % (auto) 77.8 % (37.0-80.0); Red Blood Cells 3.82 10^6/uL (4.0-5.20); Red Cell Distribution Width 15.1 % (11.8-14.3); White Blood Cell 12.8 10^3/uL (4.4-10.8)
[2022-11-27 05:25] LABS: Albumin 3.1 g/dL (3.4-5.0); BUN/Creatinine Ratio 12.2; Calcium 8.1 mg/dL (8.5-10.1); Potassium 3.7 mmol/L (3.5-5.1)
[2022-11-27 05:28] LABS: Bilirubin, Total 0.4 mg/dL (0.2-1.0); Total Protein 6.2 g/dL (6.4-8.2)
[2022-11-27] MEDS ORDERED: SODIUM CHLORIDE 0.9% 500 ML IV ONE (07:15)
[2022-11-27] MEDS ORDERED: ALBUMIN 25% 100 ML IV ONE (07:45)
[2022-11-27] MEDS ORDERED: FUROSEMIDE 40 MG/4 ML VIAL IV ONE (07:45)
[2022-11-27] MEDS: PANTOPRAZOLE 40 MG TAB PO SCH (08:24)
[2022-11-27] MEDS: methylPREDNISolone SOD SUCC 40 MG/ML VL IV SCH ×3 (08:24→22:32)
[2022-11-27] MEDS: LEVOTHYROXINE SODIUM 100 MCG TAB PO SCH (08:25)
[2022-11-27] MEDS: AZITHROMYCIN 500MG/ 250ML 250 ML IV SCH (08:27)
[2022-11-27] MEDS ORDERED: ALBUMIN 5% 50 ML IV ONE ×2 (08:30)
[2022-11-27] MEDS ORDERED: ALBUMIN 25% 50 ML IV ONE ×2 (08:45→09:15)
[2022-11-27] MEDS ORDERED: ENOXAPARIN SOD 40 MG/0.4 ML SYRINGE SC SCH (10:00)
[2022-11-27] MEDS: guaiFENesin-CODEINE Liq 5 ML UD PO PRN ×2 (10:14→21:34)
[2022-11-27] MEDS: NOREPINEPHRINE 8 MG/250ML KIT 250 ML IV SCH (12:47)
[2022-11-27] MEDS ORDERED: ALBUTEROL MEDNEB 2.5 mg/3ml NEB ONE ×3 (13:43→21:07)
[2022-11-27] MEDS ORDERED: methylPREDNISolone SOD SUCC 40 MG/ML VL IV SCH (14:00)
[2022-11-27] MEDS: IPRATROPIUM BROM 0.5 MG/2.5ML INH SOL NEB SCH ×3 (14:32→21:38)
[2022-11-27] MEDS: ALBUTEROL SULF 2.5 MG/0.5ML(0.5%) NEB SOLN NEB SCH ×3 (14:32→21:38)
[2022-11-27 20:08] LABS: Potassium 3.2 mmol/L (3.5-5.1)
[2022-11-27 20:10] LABS: Magnesium 2.2 mg/dL (1.6-2.6)
[2022-11-27] MEDS: cefTRIAXone 1GM/50ML D5W 50 ML IV SCH (22:33)
[2022-11-27 23:39] VITALS: BP 111/51
[2022-11-28] MEDS ORDERED: ALBUTEROL MEDNEB 2.5 mg/3ml NEB ONE ×6 (01:22→21:37)
[2022-11-28 01:40] VITALS: BP 109/55
[2022-11-28 03:20] VITALS: BP 109/47
[2022-11-28] MEDS: IPRATROPIUM BROM 0.5 MG/2.5ML INH SOL NEB SCH ×6 (03:27→21:44)
[2022-11-28] MEDS: ALBUTEROL SULF 2.5 MG/0.5ML(0.5%) NEB SOLN NEB SCH ×6 (03:27→21:44)
[2022-11-28 05:15] LABS: Basophils # (auto) 0 10 ^3/uL (0-0.2); Basophils % (auto) 0.1 % (0.0-2.0); Eosinophils # (auto) 0 10 ^3/uL (0-0.8); Hematocrit 33.2 % (36.0-46.0); Hemoglobin 11.2 g/dL (12.2-16.2); Lymphocytes # (auto) 0.6 10 ^3/uL (0.4-5.4); Lymphocytes % (auto) 4.2 % (10.0-50.0); Mean Corpuscular Hemoglobin 30.9 pg (28.0-32.0); Mean Corpuscular Hgb Conc. 33.7 g/dL (32.0-36.0); Mean Corpuscular Volume 91.8 fL (80.0-100.0); Monocytes # (auto) 0.4 10 ^3/uL (0-1.3); Monocytes % (auto) 2.4 % (0.0-12.0); Neutrophils # (auto) 13.8 10 ^3/uL (1.6-8.6); Neutrophils % (auto) 93.3 % (37.0-80.0); Red Blood Cells 3.62 10^6/uL (4.0-5.20); Red Cell Distribution Width 14.9 % (11.8-14.3); White Blood Cell 14.8 10^3/uL (4.4-10.8)
[2022-11-28 05:33] LABS: Calcium 8.6 mg/dL (8.5-10.1); Potassium 3.3 mmol/L (3.5-5.1)
[2022-11-28 05:35] LABS: BUN/Creatinine Ratio 18.8
[2022-11-28] MEDS: methylPREDNISolone SOD SUCC 40 MG/ML VL IV SCH ×3 (07:43→22:03)
[2022-11-28] MEDS: LEVOTHYROXINE SODIUM 100 MCG TAB PO SCH (07:43)
[2022-11-28] MEDS: AZITHROMYCIN 500MG/ 250ML 250 ML IV SCH (10:30)
[2022-11-28] MEDS: ENOXAPARIN SOD 30 MG/0.3 ML SYRINGE SC SCH (10:31)
[2022-11-28] MEDS: PANTOPRAZOLE 40 MG TAB PO SCH (10:31)
[2022-11-28] MEDS: NOREPINEPHRINE 8 MG/250ML KIT 250 ML IV SCH (12:30)
[2022-11-28] MEDS ORDERED: LORazepam 2MG/ML-1ML VIAL IV PRN (18:30)
[2022-11-28 22:00] VITALS: BP 113/59
[2022-11-28] MEDS: PRIMIDONE 50 MG TAB PO SCH (22:02)
[2022-11-28] MEDS: guaiFENesin-CODEINE Liq 5 ML UD PO PRN (22:02)
[2022-11-28] MEDS: cefTRIAXone 1GM/50ML D5W 50 ML IV SCH (22:04)
[2022-11-29] MEDS ORDERED: ALBUTEROL MEDNEB 2.5 mg/3ml NEB ONE ×4 (02:04→14:09)
[2022-11-29] MEDS: IPRATROPIUM BROM 0.5 MG/2.5ML INH SOL NEB SCH ×5 (02:10→18:00)
[2022-11-29] MEDS: ALBUTEROL SULF 2.5 MG/0.5ML(0.5%) NEB SOLN NEB SCH ×4 (02:10→14:25)
[2022-11-29] MEDS: guaiFENesin-CODEINE Liq 5 ML UD PO PRN (04:39)
[2022-11-29 05:00] VITALS: BP 111/61
[2022-11-29] MEDS: LEVOTHYROXINE SODIUM 100 MCG TAB PO SCH (06:24)
[2022-11-29] MEDS: methylPREDNISolone SOD SUCC 40 MG/ML VL IV SCH ×3 (06:24→21:44)
[2022-11-29 06:30] LABS: Basophils # (auto) 0 10 ^3/uL (0-0.2); Basophils % (auto) 0.2 % (0.0-2.0); Eosinophils # (auto) 0 10 ^3/uL (0-0.8); Hematocrit 29.7 % (36.0-46.0); Hemoglobin 10.1 g/dL (12.2-16.2); Lymphocytes # (auto) 0.6 10 ^3/uL (0.4-5.4); Lymphocytes % (auto) 3.4 % (10.0-50.0); Mean Corpuscular Hemoglobin 31.1 pg (28.0-32.0); Mean Corpuscular Hgb Conc. 34.1 g/dL (32.0-36.0); Mean Corpuscular Volume 91.4 fL (80.0-100.0); Monocytes # (auto) 0.5 10 ^3/uL (0-1.3); Monocytes % (auto) 2.6 % (0.0-12.0); Neutrophils # (auto) 17.1 10 ^3/uL (1.6-8.6); Neutrophils % (auto) 93.8 % (37.0-80.0); Red Blood Cells 3.25 10^6/uL (4.0-5.20); Red Cell Distribution Width 14.8 % (11.8-14.3); White Blood Cell 18.2 10^3/uL (4.4-10.8)
[2022-11-29 06:57] LABS: BUN/Creatinine Ratio 26.5; Calcium 8.7 mg/dL (8.5-10.1); Potassium 3.5 mmol/L (3.5-5.1)
[2022-11-29 08:30] VITALS: BP 107/61
[2022-11-29] MEDS: PANTOPRAZOLE 40 MG TAB PO SCH (09:09)
[2022-11-29] MEDS: AZITHROMYCIN 500MG/ 250ML 250 ML IV SCH (09:09)
[2022-11-29] MEDS: ENOXAPARIN SOD 30 MG/0.3 ML SYRINGE SC SCH (09:10)
[2022-11-29 12:30] VITALS: BP 111/51
[2022-11-29 17:00] VITALS: BP 99/53
[2022-11-29] MEDS: ALBUTEROL MEDNEB 2.5 mg/3ml NEB NEB SCH (18:00)
[2022-11-29] MEDS: cefTRIAXone 1GM/50ML D5W 50 ML IV SCH (21:44)
[2022-11-29] MEDS: PRIMIDONE 50 MG TAB PO SCH (21:45)
[2022-11-29 22:00] VITALS: BP 118/65
[2022-11-30] MEDS: IPRATROPIUM BROM 0.5 MG/2.5ML INH SOL NEB SCH ×7 (01:50→23:06)
[2022-11-30] MEDS: ALBUTEROL MEDNEB 2.5 mg/3ml NEB NEB SCH ×7 (01:50→23:07)
[2022-11-30 02:25] LABS: Urine Bacteria FEW /hpf (None Seen); Urine Blood Negative /uL (Negative); Urine Mucus FEW (None Seen); Urine Specific Gravity 1.014 (1.001-1.035); Urine WBC 8 /hpf (0 - 5)
[2022-11-30 05:00] VITALS: BP 128/73
[2022-11-30] MEDS: methylPREDNISolone SOD SUCC 40 MG/ML VL IV SCH ×3 (06:11→21:35)
[2022-11-30] MEDS: LEVOTHYROXINE SODIUM 100 MCG TAB PO SCH (06:11)
[2022-11-30 09:00] VITALS: BP 115/55
[2022-11-30] MEDS: AZITHROMYCIN 500MG/ 250ML 250 ML IV SCH (11:05)
[2022-11-30] MEDS: PANTOPRAZOLE 40 MG TAB PO SCH (11:06)
[2022-11-30] MEDS: ENOXAPARIN SOD 30 MG/0.3 ML SYRINGE SC SCH (11:07)
[2022-11-30] MEDS: guaiFENesin-CODEINE Liq 5 ML UD PO PRN ×2 (16:13→20:24)
[2022-11-30] MEDS: SODIUM CHLORIDE 0.9% 1,000 ML IV SCH (16:13)
[2022-11-30] MEDS: cefTRIAXone 1GM/50ML D5W 50 ML IV SCH (21:35)
[2022-11-30] MEDS: PRIMIDONE 50 MG TAB PO SCH (21:35)
[2022-11-30 22:00] VITALS: BP 107/51
[2022-12-01] MEDS: IPRATROPIUM BROM 0.5 MG/2.5ML INH SOL NEB SCH ×6 (02:49→22:25)
[2022-12-01] MEDS: ALBUTEROL MEDNEB 2.5 mg/3ml NEB NEB SCH ×6 (02:49→22:25)
[2022-12-01 05:26] VITALS: BP 129/69
[2022-12-01] MEDS: LEVOTHYROXINE SODIUM 100 MCG TAB PO SCH (06:47)
[2022-12-01] MEDS: methylPREDNISolone SOD SUCC 40 MG/ML VL IV SCH (06:48)
[2022-12-01] MEDS: SODIUM CHLORIDE 0.9% 1,000 ML IV SCH ×3 (08:30→12:00)
[2022-12-01 09:00] VITALS: BP 122/64
[2022-12-01 09:32] LABS: Basophils # (auto) 0 10 ^3/uL (0-0.2); Eosinophils # (auto) 0 10 ^3/uL (0-0.8); Hematocrit 29.6 % (36.0-46.0); Hemoglobin 9.9 g/dL (12.2-16.2); Lymphocytes # (auto) 0.4 10 ^3/uL (0.4-5.4); Lymphocytes % (auto) 3.4 % (10.0-50.0); Mean Corpuscular Hemoglobin 31.3 pg (28.0-32.0); Mean Corpuscular Hgb Conc. 33.6 g/dL (32.0-36.0); Mean Corpuscular Volume 93.1 fL (80.0-100.0); Monocytes # (auto) 0.3 10 ^3/uL (0-1.3); Monocytes % (auto) 2.8 % (0.0-12.0); Neutrophils # (auto) 11.8 10 ^3/uL (1.6-8.6); Neutrophils % (auto) 93.8 % (37.0-80.0); Nucleated Red Blood Cells % 0.1 %; Red Blood Cells 3.18 10^6/uL (4.0-5.20); Red Cell Distribution Width 14.7 % (11.8-14.3); White Blood Cell 12.5 10^3/uL (4.4-10.8)
[2022-12-01 09:49] LABS: BUN/Creatinine Ratio 25.7; Calcium 7.7 mg/dL (8.5-10.1); Potassium 4.4 mmol/L (3.5-5.1)
[2022-12-01] MEDS: guaiFENesin-CODEINE Liq 5 ML UD PO PRN ×2 (10:16→15:49)
[2022-12-01] MEDS: ENOXAPARIN SOD 30 MG/0.3 ML SYRINGE SC SCH (10:16)
[2022-12-01] MEDS: PANTOPRAZOLE 40 MG TAB PO SCH (10:16)
[2022-12-01] MEDS: AZITHROMYCIN 500MG/ 250ML 250 ML IV SCH (10:16)
[2022-12-01 13:00] VITALS: BP 113/65
[2022-12-01 16:43] VITALS: BP 123/63
[2022-12-01] MEDS: PRIMIDONE 50 MG TAB PO SCH (21:30)
[2022-12-01] MEDS: cefTRIAXone 1GM/50ML D5W 50 ML IV SCH (21:30)
[2022-12-01 22:00] VITALS: BP 130/69
[2022-12-02] MEDS: SODIUM CHLORIDE 0.9% 1,000 ML IV SCH (00:41)
[2022-12-02] MEDS: ALBUTEROL MEDNEB 2.5 mg/3ml NEB NEB SCH ×4 (02:08→14:30)
[2022-12-02] MEDS: IPRATROPIUM BROM 0.5 MG/2.5ML INH SOL NEB SCH ×4 (02:08→14:30)
[2022-12-02 05:00] VITALS: BP 110/61
[2022-12-02] MEDS: LEVOTHYROXINE SODIUM 100 MCG TAB PO SCH (06:49)
[2022-12-02 08:00] VITALS: BP 110/58
[2022-12-02 09:00] VITALS: BP 110/58
[2022-12-02] MEDS: AZITHROMYCIN 500MG/ 250ML 250 ML IV SCH (09:28)
[2022-12-02] MEDS: ENOXAPARIN SOD 30 MG/0.3 ML SYRINGE SC SCH (09:29)
[2022-12-02] MEDS: PANTOPRAZOLE 40 MG TAB PO SCH (09:29)
[2022-12-02] MEDS ORDERED: predniSONE 20 MG TAB PO SCH (10:00)
[2022-12-02] MEDS ORDERED: SENNA 8.6 MG TAB PO ONE (10:30)
[2022-12-02] MEDS ORDERED: AMOX500T86 PO (10:31)
[2022-12-02 11:58] VITALS: BP 122/62
[2022-12-02 13:00] VITALS: BP 114/63
== END 2022-12-02 15:05 | disposition home health service (06) | DRG 871 ==
LOC: ER 15:22 → TELE 20:51 → EDUNIT# 20:51 → TELE-WESTW 11-28 18:22
PROVIDERS: ADMIT Nurse Practitioner; ATTEND Internal Medicine Pulmonary Disease
PROC: 5A09357 Assistance with Respiratory Ventilation, Less than 24 Consecutive Hours, Continuous Positive Airway Pressure (ICD-10-PCS; principal; 2022-11-27)
PROC: 5A09357 Assistance with Respiratory Ventilation, Less than 24 Consecutive Hours, Continuous Positive Airway Pressure (ICD-10-PCS; 2022-11-28)
PROC: 5A09357 Assistance with Respiratory Ventilation, Less than 24 Consecutive Hours, Continuous Positive Airway Pressure (ICD-10-PCS; 2022-11-29)
PROC: 5A09357 Assistance with Respiratory Ventilation, Less than 24 Consecutive Hours, Continuous Positive Airway Pressure (ICD-10-PCS; 2022-11-30)
PROC: 5A09357 Assistance with Respiratory Ventilation, Less than 24 Consecutive Hours, Continuous Positive Airway Pressure (ICD-10-PCS; 2022-12-01)
DX: A41.9 Sepsis, unspecified organism (principal); J18.9 Pneumonia, unspecified organism; R65.21 Severe sepsis with septic shock; J96.01 Acute respiratory failure with hypoxia; N39.0 Urinary tract infection, site not specified; E44.0 Moderate protein-calorie malnutrition; J45.901 Unspecified asthma with (acute) exacerbation; J44.0 Chronic obstructive pulmonary disease with (acute) lower respiratory infection; N17.9 Acute kidney failure, unspecified; E03.9 Hypothyroidism, unspecified; E87.6 Hypokalemia; N28.89 Other specified disorders of kidney and ureter; I10 Essential (primary) hypertension; M06.9 Rheumatoid arthritis, unspecified; M81.0 Age-related osteoporosis without current pathological fracture; Z66 Do not resuscitate; R79.89 Other specified abnormal findings of blood chemistry; R25.1 Tremor, unspecified; E66.9 Obesity, unspecified; G47.10 Hypersomnia, unspecified; N28.1 Cyst of kidney, acquired; Z90.49 Acquired absence of other specified parts of digestive tract; Z68.38 Body mass index [BMI] 38.0-38.9, adult
CPT/HCPCS: 36415; 36600; 70551; 71045; 71046; 71260; 74177; 76775; 80048; 80053; 81001; 82805; 83605; 83735; 83880; 84132; 84484; 85025; 85379; 87040; 87081; 87426; 93005; 93306; 94640; 94660; 96365; 96366; 96367; 96368; 96372; 96375; 97110; 97116; 97530; G0378; J0696; J2405

== ENCOUNTER → 2022-12-29 | Outpatient (CLI) | payer MEDICARE, MEDICAID ==
[~2022-12-29] MED LIST changes: +AMOX500T86 PO; -PREDPOW63
[2022-12-29 15:00] LABS: Basophils # (auto) 0.1 10 ^3/uL (0-0.2); Basophils % (auto) 0.5 % (0.0-2.0); Eosinophils # (auto) 0.1 10 ^3/uL (0-0.8); Eosinophils % (auto) 1.1 % (0.0-7.0); Hematocrit 33.1 % (36.0-46.0); Lymphocytes % (auto) 18.7 % (10.0-50.0); Mean Corpuscular Hemoglobin 30.8 pg (28.0-32.0); Mean Corpuscular Hgb Conc. 33.3 g/dL (32.0-36.0); Mean Corpuscular Volume 92.3 fL (80.0-100.0); Monocytes # (auto) 0.8 10 ^3/uL (0-1.3); Monocytes % (auto) 7.8 % (0.0-12.0); Neutrophils # (auto) 7.7 10 ^3/uL (1.6-8.6); Neutrophils % (auto) 71.9 % (37.0-80.0); Nucleated Red Blood Cells % 0.2 %; Red Blood Cells 3.59 10^6/uL (4.0-5.20); Red Cell Distribution Width 15.3 % (11.8-14.3); White Blood Cell 10.7 10^3/uL (4.4-10.8)
[2022-12-29 15:45] LABS: Albumin 3.1 g/dL (3.4-5.0); BUN/Creatinine Ratio 20.7 (10.0-20.0); Calcium 8.9 mg/dL (8.5-10.1); Phosphorus 3.2 mg/dL (2.5-4.90); Potassium 3.7 mmol/L (3.5-5.1); Uric Acid 3.9 mg/dL (2.6-6.0)
== END | disposition home or self-care (01) ==
LOC: LAB 14:40
PROVIDERS: ATTEND Internal Medicine Nephrology
DX: N18.30 Chronic kidney disease, stage 3 unspecified (principal); J98.9 Respiratory disorder, unspecified; E21.3 Hyperparathyroidism, unspecified; E56.1 Deficiency of vitamin K; R80.9 Proteinuria, unspecified; D63.1 Anemia in chronic kidney disease
CPT/HCPCS: 36415; 80069; 82306; 83970; 84550; 85025

== ENCOUNTER → 2023-01-12 | Outpatient (CLI) | payer MEDICARE, MEDICAID ==
[~2023-01-12] MED LIST changes: +FUROSEMIDE 20 MG/2 ML VIAL IV ONE; +FUROSEMIDE 20 MG/2 ML VIAL ONE; +POTASSIUM CHL 20 Meq TABLET PO ONE
[2023-01-12 11:55] VITALS: BP 107/78
[2023-01-12 13:10] VITALS: BP 133/60
== END | disposition home or self-care (01) ==
LOC: Rad HDHVI 12:12
PROVIDERS: ATTEND Internal Medicine Cardiovascular Disease
DX: R06.02 Shortness of breath (principal)
CPT/HCPCS: 71046; 96374; G0463; J1940

== ENCOUNTER → 2023-01-14 | Outpatient (CLI) | payer MEDICARE, MEDICAID ==
[~2023-01-14] VITALS: Ht 157.5 cm; Wt 92.1 kg
[~2023-01-14] MED LIST changes: +ADENOSINE 77 MG in GIVE UN-DILUTED 0 ML IV ONE; +ADENOSINE 90 MG/30 ML INJ IV ONE; -FUROSEMIDE 20 MG/2 ML VIAL IV ONE; -FUROSEMIDE 20 MG/2 ML VIAL ONE; -POTASSIUM CHL 20 Meq TABLET PO ONE
== END | disposition home or self-care (01) ==
LOC: Rad HDHVI 13:19
PROVIDERS: ATTEND Internal Medicine Cardiovascular Disease
DX: R07.9 Chest pain, unspecified (principal); R00.2 Palpitations; I10 Essential (primary) hypertension; R60.9 Edema, unspecified
CPT/HCPCS: 78452; 93005; 96374; 96375; A9500; J0153

== ENCOUNTER → 2023-01-19 | Outpatient (CLI) | payer MEDICARE, MEDICAID ==
[~2023-01-19] MED LIST changes: -ADENOSINE 77 MG in GIVE UN-DILUTED 0 ML IV ONE; -ADENOSINE 90 MG/30 ML INJ IV ONE
== END | disposition home or self-care (01) ==
LOC: Rad HDHVI 13:33
PROVIDERS: ATTEND Internal Medicine Cardiovascular Disease
DX: M79.604 Pain in right leg (principal); M79.605 Pain in left leg
CPT/HCPCS: 93970

== ENCOUNTER → 2023-01-22 | Outpatient (CLI) | payer MEDICARE, MEDICAID | END | disposition home or self-care (01) | LOC: Rad HDHVI 14:40 | PROVIDERS: ATTEND Internal Medicine Cardiovascular Disease | DX: I50.30 Unspecified diastolic (congestive) heart failure (principal) | CPT/HCPCS: 93306 ==

== ENCOUNTER → 2023-04-13 | Outpatient (CLI) | payer MEDICARE ==
[~2023-04-13] MED LIST changes: -MELO1TAB73 PO; +MELO7.5T7 PO
[2023-04-13 07:59] LABS: Basophils # (auto) 0.1 10 ^3/uL (0-0.2); Basophils % (auto) 0.5 % (0.0-2.0); Eosinophils # (auto) 0 10 ^3/uL (0-0.8); Eosinophils % (auto) 0.2 % (0.0-7.0); Hematocrit 34.6 % (36.0-46.0); Hemoglobin 11.3 g/dL (12.2-16.2); Lymphocytes # (auto) 2.7 10 ^3/uL (0.4-5.4); Lymphocytes % (auto) 17.9 % (10.0-50.0); Mean Corpuscular Hemoglobin 28.8 pg (28.0-32.0); Mean Corpuscular Hgb Conc. 32.5 g/dL (32.0-36.0); Mean Corpuscular Volume 88.7 fL (80.0-100.0); Monocytes # (auto) 0.8 10 ^3/uL (0-1.3); Monocytes % (auto) 5.4 % (0.0-12.0); Neutrophils # (auto) 11.4 10 ^3/uL (1.6-8.6); Nucleated Red Blood Cells % 0.1 %; Red Blood Cells 3.91 10^6/uL (4.0-5.20); Red Cell Distribution Width 16.3 % (11.8-14.3)
[2023-04-13 08:04] LABS: Urine Blood Negative /uL (Negative); Urine Specific Gravity 1.014 (1.001-1.035)
[2023-04-13 08:38] LABS: Chloride 113 mmol/L (98-107); Potassium 4.5 mmol/L (3.5-5.1); Sodium 142 mmol/L (136-145)
[2023-04-13 08:47] LABS: Alanine Aminotransferase 24 U/L (13-56); Albumin 3.2 g/dL (3.4-5.0); Alkaline Phosphatase 57 U/L (45-117); Anion Gap 5 (5-15); Aspartate Aminotransferase 20 U/L (15-37); BUN/Creatinine Ratio 13.7 (10.0-20.0); Bilirubin, Direct < 0.1 mg/dL (0-0.2); Bilirubin, Total 0.3 mg/dL (0.2-1.0); Blood Urea Nitrogen 16 mg/dL (7-18); Calcium 9.2 mg/dL (8.5-10.1); Carbon Dioxide 24 mmol/L (21-32); Cholesterol 214 mg/dL (< 200); GFR African American 58 mL/min; GFR Non-African American 48 mL/min; Glucose 100 mg/dL (74-106); HDL Cholesterol 50 mg/dL (40-59); LDL Cholesterol 133 mg/dL (< 100); Total Protein 7.3 g/dL (6.4-8.2); Triglycerides 133 mg/dL (< 150)
== END | disposition home or self-care (01) ==
LOC: LAB 07:27
PROVIDERS: ATTEND Internal Medicine Cardiovascular Disease
DX: D64.9 Anemia, unspecified (principal); D51.3 Other dietary vitamin B12 deficiency anemia; E11.9 Type 2 diabetes mellitus without complications; E55.9 Vitamin D deficiency, unspecified; I10 Essential (primary) hypertension; R00.2 Palpitations; R53.1 Weakness; R30.0 Dysuria
CPT/HCPCS: 36415; 80048; 80061; 80076; 81003; 82306; 83036; 84443; 85025

== ENCOUNTER → 2023-06-16 | Outpatient (CLI) | payer MEDICARE, OTHER ==
[2023-06-16 08:24] LABS: Basophils # (auto) 0.1 10 ^3/uL (0-0.2); Eosinophils # (auto) 0.2 10 ^3/uL (0-0.8); Hematocrit 33.3 % (36.0-46.0); Hemoglobin 10.9 g/dL (12.2-16.2); Lymphocytes # (auto) 2.8 10 ^3/uL (0.4-5.4); Lymphocytes % (auto) 32.6 % (10.0-50.0); Mean Corpuscular Hemoglobin 29.1 pg (28.0-32.0); Mean Corpuscular Hgb Conc. 32.7 g/dL (32.0-36.0); Mean Corpuscular Volume 88.7 fL (80.0-100.0); Monocytes # (auto) 0.6 10 ^3/uL (0-1.3); Monocytes % (auto) 7.6 % (0.0-12.0); Neutrophils # (auto) 4.8 10 ^3/uL (1.6-8.6); Neutrophils % (auto) 56.8 % (37.0-80.0); Red Blood Cells 3.75 10^6/uL (4.0-5.20); Red Cell Distribution Width 18.1 % (11.8-14.3); White Blood Cell 8.5 10^3/uL (4.4-10.8)
[2023-06-16 08:55] LABS: Erythrocyte Sedimentation Rate 25 mm/hr (0-20)
[2023-06-16 08:56] LABS: Alanine Aminotransferase 27 U/L (7-40); Alkaline Phosphatase 48 U/L (46-116); Aspartate Aminotransferase 31 U/L (13-40); Bilirubin, Total 0.5 mg/dL (0.2-1.0); Blood Urea Nitrogen 12 mg/dL (9-23); CRP High Sensitivity 0.26 mg/dL (<1.0); Chloride 110 mmol/L (98-107); Glucose 98 mg/dL (74-106); Potassium 3.6 mmol/L (3.5-5.1); Sodium 146 mmol/L (136-145); Total Protein 6.5 g/dL (5.7-8.2)
[2023-06-17 07:07] LABS: Rheumatoid Arthritis Factor <10.0 IU/mL (<14.0)
[2023-06-17 22:06] LABS: CCP IgG/IgA Antibody 0 units (0-19)
[2023-06-18 09:33] LABS: Hepatitis B Surface Antigen Negative (Negative)
[2023-06-18 20:14] LABS: Hepatitis B Core Total AB Negative (Negative)
== END | disposition home or self-care (01) ==
LOC: LAB 08:04
PROVIDERS: ATTEND Internal Medicine Rheumatology
DX: M06.9 Rheumatoid arthritis, unspecified (principal); R53.83 Other fatigue; Z79.899 Other long term (current) drug therapy
CPT/HCPCS: 36415; 80053; 85025; 85652; 86141; 86200; 86431; 86704; 87340

== ENCOUNTER → 2023-08-10 | Outpatient (CLI) | payer MEDICARE ==
[2023-08-10 08:53] LABS: Basophils # (auto) 0 10 ^3/uL (0-0.2); Basophils % (auto) 0.5 % (0.0-2.0); Eosinophils # (auto) 0.1 10 ^3/uL (0-0.8); Eosinophils % (auto) 0.9 % (0.0-7.0); Hematocrit 33.5 % (36.0-46.0); Hemoglobin 10.7 g/dL (12.2-16.2); Lymphocytes % (auto) 22.3 % (10.0-50.0); Mean Corpuscular Hgb Conc. 32.1 g/dL (32.0-36.0); Mean Corpuscular Volume 90.4 fL (80.0-100.0); Monocytes # (auto) 0.6 10 ^3/uL (0-1.3); Monocytes % (auto) 6.1 % (0.0-12.0); Neutrophils # (auto) 6.4 10 ^3/uL (1.6-8.6); Neutrophils % (auto) 70.2 % (37.0-80.0); Red Cell Distribution Width 17.8 % (11.8-14.3); White Blood Cell 9.1 10^3/uL (4.4-10.8)
[2023-08-10 09:17] LABS: Urine Bacteria MANY /hpf (None Seen); Urine Blood Negative /uL (Negative); Urine Clarity HAZY (Clear); Urine Color Yellow (Yellow); Urine Hyaline Cast MANY /lpf (0 - 2); Urine Protein, UAD TRACE (Negative); Urine Specific Gravity 1.015 (1.001-1.035); Urine Urobilinogen Normal (Negative); Urine WBC 117 /hpf (0 - 5); Urine WBC Clumps PRESENT /hpf (None Seen); Urine pH 5.5 (5.0-8.0)
[2023-08-10 09:53] LABS: Alanine Aminotransferase 33 U/L (7-40); Alkaline Phosphatase 71 U/L (46-116); Anion Gap 8 (5-15); BUN/Creatinine Ratio 10.7 (10.0-20.0); Blood Urea Nitrogen 13 mg/dL (9-23); Calcium 9.5 mg/dL (8.5-10.1); Carbon Dioxide 27 mmol/L (20-30); Chloride 109 mmol/L (98-107); Glucose 96 mg/dL (74-106); Sodium 144 mmol/L (136-145)
[2023-08-10 09:54] LABS: Albumin 4.3 g/dL (3.2-4.8); Aspartate Aminotransferase 27 U/L (13-40)
[2023-08-10 09:55] LABS: Bilirubin, Total 0.5 mg/dL (0.2-1.0); Total Protein 6.8 g/dL (5.7-8.2)
== END | disposition home or self-care (01) ==
LOC: LAB 08:41
PROVIDERS: ATTEND Student in an Organized Health Care Education/Training Program
DX: I10 Essential (primary) hypertension (principal); E78.5 Hyperlipidemia, unspecified; N39.0 Urinary tract infection, site not specified
CPT/HCPCS: 36415; 80053; 81001; 84439; 84443; 85025; 87086

== ENCOUNTER → 2023-08-11 | Outpatient (CLI) | payer MEDICARE, OTHER ==
[~2023-08-11] MED LIST changes: +MEROPENEM 1GM IVPB 100 ML IV ONE; +SODIUM FERR GLUC 62.5MG/5ML 125 MG in SODIUM CHL 0.9% 100 ML IV ONE; +SODIUM FERRIC GLUC CPLEX 62.5MG/5ML VIAL IV ONE
[2023-08-11 11:03] VITALS: BP 130/84; PULSE 75; RESP 16; O2SAT 97
[2023-08-11 15:47] VITALS: BP 121/68; PULSE 77; RESP 16; O2SAT 97
== END | disposition home or self-care (01) ==
LOC: CHF HDHVI 11:11
PROVIDERS: ATTEND Internal Medicine Cardiovascular Disease
DX: N39.0 Urinary tract infection, site not specified (principal); D64.9 Anemia, unspecified; R53.83 Other fatigue; R06.02 Shortness of breath; I10 Essential (primary) hypertension; E78.5 Hyperlipidemia, unspecified
CPT/HCPCS: 96365; 96366; 96367; G0463; J2185; J2916

== ENCOUNTER → 2023-08-20 | Outpatient (CLI) | payer MEDICARE, OTHER ==
[~2023-08-20] MED LIST changes: -MEROPENEM 1GM IVPB 100 ML IV ONE
[2023-08-20 11:19] VITALS: BP 130/61; PULSE 66; RESP 18; O2SAT 91
[2023-08-20 12:37] VITALS: BP 116/55; PULSE 66; RESP 18; O2SAT 94
== END | disposition home or self-care (01) ==
LOC: CHF HDHVI 11:13
PROVIDERS: ATTEND Internal Medicine Cardiovascular Disease
DX: D50.9 Iron deficiency anemia, unspecified (principal); R53.83 Other fatigue; I10 Essential (primary) hypertension; E78.00 Pure hypercholesterolemia, unspecified; R06.02 Shortness of breath
CPT/HCPCS: 96365; G0463; J2916

== ENCOUNTER → 2023-08-27 | Outpatient (CLI) | payer MEDICARE, OTHER ==
[2023-08-27 11:47] VITALS: BP 144/60; PULSE 64; RESP 16; O2SAT 95
[2023-08-27 12:57] VITALS: BP 125/51; PULSE 68; RESP 16; O2SAT 95
== END | disposition home or self-care (01) ==
LOC: CHF HDHVI 11:44
PROVIDERS: ATTEND Internal Medicine Cardiovascular Disease
DX: D50.9 Iron deficiency anemia, unspecified (principal); R53.83 Other fatigue; R06.02 Shortness of breath; I10 Essential (primary) hypertension; E78.00 Pure hypercholesterolemia, unspecified; E78.5 Hyperlipidemia, unspecified
CPT/HCPCS: 96365; G0463; J2916

== ENCOUNTER → 2023-09-10 | Outpatient (CLI) | payer MEDICARE, OTHER ==
[2023-09-10 11:07] VITALS: BP 134/67; PULSE 68; RESP 18; O2SAT 99
[2023-09-10 12:26] VITALS: BP 138/67; PULSE 68; RESP 18; O2SAT 99
== END | disposition home or self-care (01) ==
LOC: CHF HDHVI 11:01
PROVIDERS: ATTEND Internal Medicine Cardiovascular Disease
DX: D50.9 Iron deficiency anemia, unspecified (principal); I12.9 Hypertensive chronic kidney disease with stage 1 through stage 4 chronic kidney disease, or unspecified chronic kidney disease; E11.22 Type 2 diabetes mellitus with diabetic chronic kidney disease; N18.30 Chronic kidney disease, stage 3 unspecified; E21.3 Hyperparathyroidism, unspecified; E78.00 Pure hypercholesterolemia, unspecified
CPT/HCPCS: 96365; G0463; J2916

== ENCOUNTER → 2023-09-14 | Outpatient (CLI) | payer MEDICARE, OTHER ==
[~2023-09-14] MED LIST changes: -SODIUM FERR GLUC 62.5MG/5ML 125 MG in SODIUM CHL 0.9% 100 ML IV ONE; -SODIUM FERRIC GLUC CPLEX 62.5MG/5ML VIAL IV ONE
[2023-09-14 12:08] LABS: Alanine Aminotransferase 28 U/L (7-40); Albumin 4.2 g/dL (3.2-4.8); Alkaline Phosphatase 66 U/L (46-116); Calcium 9.5 mg/dL (8.5-10.1); Carbon Dioxide 27 mmol/L (20-30); Chloride 112 mmol/L (98-107); Glucose 94 mg/dL (74-106); Potassium 4.1 mmol/L (3.5-5.1); Sodium 144 mmol/L (136-145)
[2023-09-14 12:09] LABS: Anion Gap 5 (5-15); Aspartate Aminotransferase 26 U/L (13-40); BUN/Creatinine Ratio 15.5 (10.0-20.0); Bilirubin, Total 0.4 mg/dL (0.2-1.0); Blood Urea Nitrogen 16 mg/dL (9-23); Total Protein 6.6 g/dL (5.7-8.2)
== END | disposition home or self-care (01) ==
LOC: LAB 09:51
PROVIDERS: ATTEND Internal Medicine Nephrology
DX: E11.22 Type 2 diabetes mellitus with diabetic chronic kidney disease (principal); N18.30 Chronic kidney disease, stage 3 unspecified; D63.1 Anemia in chronic kidney disease; N39.0 Urinary tract infection, site not specified; R80.9 Proteinuria, unspecified; E21.3 Hyperparathyroidism, unspecified; M10.9 Gout, unspecified; E55.9 Vitamin D deficiency, unspecified; E11.21 Type 2 diabetes mellitus with diabetic nephropathy
CPT/HCPCS: 36415; 80053

== ENCOUNTER → 2023-09-17 | Outpatient (CLI) | payer MEDICARE, OTHER ==
[~2023-09-17] VITALS: Ht 30.5 cm; Wt 0.5 kg
[~2023-09-17] MED LIST changes: +CYANOCOBALAMIN (B-12) 1000 MCG/1 ML VIAL IM ONE; +CYANOCOBALAMIN (B-12) 1000 MCG/1 ML VIAL ONE; +SODIUM FERR GLUC 62.5MG/5ML 125 MG in SODIUM CHL 0.9% 100 ML IV ONE; +SODIUM FERRIC GLUC CPLEX 62.5MG/5ML VIAL IV ONE
[2023-09-17 09:57] VITALS: BP 153/72; PULSE 78; RESP 16; O2SAT 97
[2023-09-17 11:20] VITALS: BP 149/75; PULSE 73; RESP 16; O2SAT 97
== END | disposition home or self-care (01) ==
LOC: CHF HDHVI 09:51
PROVIDERS: ATTEND Internal Medicine Cardiovascular Disease
DX: D50.9 Iron deficiency anemia, unspecified (principal); R53.83 Other fatigue; I12.9 Hypertensive chronic kidney disease with stage 1 through stage 4 chronic kidney disease, or unspecified chronic kidney disease; E11.22 Type 2 diabetes mellitus with diabetic chronic kidney disease; N18.30 Chronic kidney disease, stage 3 unspecified; D51.9 Vitamin B12 deficiency anemia, unspecified; E78.5 Hyperlipidemia, unspecified; E78.00 Pure hypercholesterolemia, unspecified
CPT/HCPCS: 96365; 96372; G0463; J2916; J3420

== ENCOUNTER → 2023-09-17 | Outpatient (CLI) | payer MEDICARE, OTHER ==
[~2023-09-17] MED LIST changes: -CYANOCOBALAMIN (B-12) 1000 MCG/1 ML VIAL IM ONE; -CYANOCOBALAMIN (B-12) 1000 MCG/1 ML VIAL ONE; -SODIUM FERR GLUC 62.5MG/5ML 125 MG in SODIUM CHL 0.9% 100 ML IV ONE; -SODIUM FERRIC GLUC CPLEX 62.5MG/5ML VIAL IV ONE
[2023-09-17 12:15] LABS: Basophils # (auto) 0.1 10 ^3/uL (0-0.2); Basophils % (auto) 0.6 % (0.0-2.0); Eosinophils # (auto) 0.3 10 ^3/uL (0-0.8); Eosinophils % (auto) 2.9 % (0.0-7.0); Hemoglobin 11.9 g/dL (12.2-16.2); Lymphocytes # (auto) 2.7 10 ^3/uL (0.4-5.4); Lymphocytes % (auto) 27.1 % (10.0-50.0); Mean Corpuscular Hemoglobin 30.7 pg (28.0-32.0); Mean Corpuscular Volume 92.8 fL (80.0-100.0); Monocytes # (auto) 0.8 10 ^3/uL (0-1.3); Monocytes % (auto) 8.5 % (0.0-12.0); Neutrophils % (auto) 60.9 % (37.0-80.0); Nucleated Red Blood Cells % 0.1 %; Red Blood Cells 3.87 10^6/uL (4.0-5.20); Red Cell Distribution Width 18.8 % (11.8-14.3); White Blood Cell 9.9 10^3/uL (4.4-10.8)
[2023-09-17 12:33] LABS: Urine Blood Negative /uL (Negative); Urine Clarity HAZY (Clear); Urine Color Yellow (Yellow); Urine Protein, UAD Negative (Negative); Urine Specific Gravity 1.012 (1.001-1.035); Urine Urobilinogen Normal (Negative); Urine pH 6.5 (5.0-8.0)
[2023-09-17 12:45] LABS: % Iron Saturation 62.5 % (15-50)
== END | disposition home or self-care (01) ==
LOC: LAB 11:50
PROVIDERS: ATTEND Internal Medicine Cardiovascular Disease
DX: N39.0 Urinary tract infection, site not specified (principal); D51.9 Vitamin B12 deficiency anemia, unspecified; D64.9 Anemia, unspecified
CPT/HCPCS: 36415; 81003; 83540; 83550; 85025; 87086; 87088; 87186

== ENCOUNTER → 2023-09-21 | Outpatient (CLI) | payer MEDICARE, OTHER ==
[~2023-09-21] MED LIST changes: +cefTRIAXone 1GM/50ML D5W 100 ML IV ONE; +cefTRIAXone 1GM/50ML D5W 50 ML IV ONE
[2023-09-21 11:20] VITALS: BP 130/80; PULSE 79; RESP 16; O2SAT 98
[2023-09-21 12:42] VITALS: BP 153/76; PULSE 67; RESP 16; O2SAT 98
== END | disposition home or self-care (01) ==
LOC: CHF HDHVI 11:20
PROVIDERS: ATTEND Internal Medicine Cardiovascular Disease
DX: N39.0 Urinary tract infection, site not specified (principal); I12.9 Hypertensive chronic kidney disease with stage 1 through stage 4 chronic kidney disease, or unspecified chronic kidney disease; E11.22 Type 2 diabetes mellitus with diabetic chronic kidney disease; N18.30 Chronic kidney disease, stage 3 unspecified; D50.9 Iron deficiency anemia, unspecified; D51.9 Vitamin B12 deficiency anemia, unspecified; E78.5 Hyperlipidemia, unspecified; E78.00 Pure hypercholesterolemia, unspecified; R53.83 Other fatigue
CPT/HCPCS: 96365; G0463; J0696

== ENCOUNTER → 2023-10-14 | Outpatient (CLI) | payer MEDICARE, OTHER ==
[~2023-10-14] MED LIST changes: -cefTRIAXone 1GM/50ML D5W 100 ML IV ONE; -cefTRIAXone 1GM/50ML D5W 50 ML IV ONE
[2023-10-14 14:43] LABS: Urine Blood Negative /uL (Negative); Urine Clarity HAZY (Clear); Urine Color Colorless (Yellow); Urine Protein, UAD Negative (Negative); Urine Specific Gravity 1.012 (1.001-1.035); Urine Urobilinogen Normal (Negative); Urine pH 5.5 (5.0-8.0)
== END | disposition home or self-care (01) ==
LOC: LAB 14:25
PROVIDERS: ATTEND Internal Medicine Cardiovascular Disease
DX: N18.30 Chronic kidney disease, stage 3 unspecified (principal); R80.9 Proteinuria, unspecified; R82.90 Unspecified abnormal findings in urine; E21.3 Hyperparathyroidism, unspecified; E55.9 Vitamin D deficiency, unspecified; D63.1 Anemia in chronic kidney disease; M10.9 Gout, unspecified; N39.0 Urinary tract infection, site not specified
CPT/HCPCS: 81003; 87086

== ENCOUNTER → 2023-10-29 | Outpatient (CLI) | payer MEDICARE, OTHER | END | disposition home or self-care (01) | LOC: LAB 10:48 | PROVIDERS: ATTEND Urology | DX: N39.0 Urinary tract infection, site not specified (principal) | CPT/HCPCS: 87086; 87088; 87186 ==

== ENCOUNTER → 2023-11-06 | Outpatient (CLI) | payer MEDICARE, OTHER ==
[2023-11-06 11:06] LABS: Basophils # (auto) 0 10 ^3/uL (0-0.2); Basophils % (auto) 0.5 % (0.0-2.0); Eosinophils # (auto) 0 10 ^3/uL (0-0.8); Eosinophils % (auto) 0.2 % (0.0-7.0); Hematocrit 37.2 % (36.0-46.0); Hemoglobin 12.2 g/dL (12.2-16.2); Lymphocytes # (auto) 1.6 10 ^3/uL (0.4-5.4); Mean Corpuscular Hemoglobin 31.2 pg (28.0-32.0); Mean Corpuscular Hgb Conc. 32.7 g/dL (32.0-36.0); Mean Corpuscular Volume 95.4 fL (80.0-100.0); Monocytes # (auto) 0.5 10 ^3/uL (0-1.3); Monocytes % (auto) 5.3 % (0.0-12.0); Neutrophils # (auto) 6.9 10 ^3/uL (1.6-8.6); Red Cell Distribution Width 16.7 % (11.8-14.3); White Blood Cell 9.1 10^3/uL (4.4-10.8)
[2023-11-06 11:17] LABS: Urine Bacteria MANY /hpf (None Seen); Urine Blood Negative /uL (Negative); Urine Clarity HAZY (Clear); Urine Color Colorless (Yellow); Urine Mucus FEW (None Seen); Urine Protein, UAD Negative (Negative); Urine Specific Gravity 1.015 (1.001-1.035); Urine Urobilinogen Normal (Negative); Urine WBC 156 /hpf (0 - 5)
[2023-11-06 11:52] LABS: Chloride 111 mmol/L (98-107); Potassium 4.6 mmol/L (3.5-5.1); Sodium 144 mmol/L (136-145)
[2023-11-06 11:53] LABS: Anion Gap 4 (5-15); Calcium 9.4 mg/dL (8.5-10.1); Carbon Dioxide 29 mmol/L (20-30)
[2023-11-06 11:58] LABS: BUN/Creatinine Ratio 14.3 (10.0-20.0); Blood Urea Nitrogen 15 mg/dL (9-23); Glucose 88 mg/dL (74-106)
== END | disposition home or self-care (01) ==
LOC: LAB 10:53
PROVIDERS: ATTEND Internal Medicine Nephrology
DX: N18.31 Chronic kidney disease, stage 3a (principal); D63.1 Anemia in chronic kidney disease; R82.90 Unspecified abnormal findings in urine
CPT/HCPCS: 36415; 80048; 81001; 82043; 85025

== ENCOUNTER → 2024-06-24 | Outpatient (CLI) | payer MEDICARE, OTHER ==
[~2024-06-24] VITALS: Ht 157.5 cm; Wt 83.0 kg
[~2024-06-24] MED LIST changes: +ADENOSINE 70 MG in GIVE UN-DILUTED 0 ML IV ONE; +ADENOSINE 90 MG/30 ML INJ IV ONE
== END | disposition home or self-care (01) ==
LOC: Rad HDHVI 08:54
PROVIDERS: ATTEND Internal Medicine Cardiovascular Disease
DX: I13.0 Hypertensive heart and chronic kidney disease with heart failure and stage 1 through stage 4 chronic kidney disease, or unspecified chronic kidney disease (principal); E11.22 Type 2 diabetes mellitus with diabetic chronic kidney disease; N18.30 Chronic kidney disease, stage 3 unspecified; I50.33 Acute on chronic diastolic (congestive) heart failure; E78.00 Pure hypercholesterolemia, unspecified; M10.9 Gout, unspecified
CPT/HCPCS: 78452; 93005; 96374; 96375; A9500; J0153

== ENCOUNTER → 2024-07-12 | Day surgery (SDC) | payer MEDICARE, OTHER ==
[2024-07-08 15:43] LABS: Basophils # (auto) 0 10 ^3/uL (0-0.2); Basophils % (auto) 0.5 % (0.0-2.0); Eosinophils # (auto) 0.1 10 ^3/uL (0-0.8); Eosinophils % (auto) 1.2 % (0.0-7.0); Hematocrit 35.8 % (36.0-46.0); Hemoglobin 12.2 g/dL (12.2-16.2); Lymphocytes # (auto) 1.5 10 ^3/uL (0.4-5.4); Mean Corpuscular Hemoglobin 32.8 pg (28.0-32.0); Mean Corpuscular Volume 96.5 fL (80.0-100.0); Monocytes # (auto) 0.6 10 ^3/uL (0-1.3); Monocytes % (auto) 6.4 % (0.0-12.0); Neutrophils # (auto) 6.7 10 ^3/uL (1.6-8.6); Neutrophils % (auto) 74.9 % (37.0-80.0); Platelet Count (auto) 224 10^3/uL (140-450); Red Blood Cells 3.71 10^6/uL (4.0-5.20)
[2024-07-08 15:53] LABS: Urine Bacteria MOD /hpf (None Seen); Urine Blood Negative /uL (Negative); Urine Clarity Clear (Clear); Urine Color Light-Yellow (Yellow); Urine Protein, UAD Negative (Negative); Urine Specific Gravity 1.016 (1.001-1.035); Urine Urobilinogen Normal (Negative); Urine WBC 35 /hpf (0 - 5)
[2024-07-08 15:55] LABS: INR 1.05 (0.9-1.15); Partial Thromboplastin Time 26.2 SEC (24.5-34.5); Prothrombin Time 11.1 sec (9.3-11.8)
[2024-07-08 15:58] LABS: Alanine Aminotransferase 36 U/L (7-40); Albumin 4.4 g/dL (3.2-4.8); Alkaline Phosphatase 78 U/L (46-116); Anion Gap 7 (5-15); Aspartate Aminotransferase 19 U/L (13-40); BUN/Creatinine Ratio 16.7 (10.0-20.0); Bilirubin, Total 0.4 mg/dL (0.2-1.0); Blood Urea Nitrogen 21 mg/dL (9-23); Calcium 9.3 mg/dL (8.7-10.4); Carbon Dioxide 29 mmol/L (20-31); Chloride 109 mmol/L (98-107); Glucose 99 mg/dL (74-106); Potassium 4.2 mmol/L (3.5-5.1); Sodium 145 mmol/L (136-145); Total Protein 6.6 g/dL (5.7-8.2)
[~2024-07-12] VITALS: Ht 157.5 cm; Wt 84.8 kg
[~2024-07-12] MED LIST changes: -ADENOSINE 70 MG in GIVE UN-DILUTED 0 ML IV ONE; -ADENOSINE 90 MG/30 ML INJ IV ONE; -AMOX500T86 PO; -ASPI-394 PO; +BUME2TAB5 PO; -CALCTAB62 OR; +CHOL20004 PO; -FENO1TAB PO; -FENO35TA2 PO; +FER325T PO; +FOLI-119 PO; +GABA300T4 PO; +GLYCOPYRROLATE 0.2 MG/ML 1ML VIAL ONE; +HYDROCORTISONE SOD SUCC 100 MG/2ML INJ VIAL ONE; +HYDROmorphone HCL 2 MG/ML VL/or syr IV PRN; -LEVO750T8 PO; +LIDOCAINE 2% (LOCAL ANESTH.) PF 5ml SDV ONE; -MELO7.5T7 PO; +MEPERIDINE HCL (50 MG/ML) 1 ML VIAL ONE; +METH0.4I2 SC; +MIDAZOLAM HCL 2MG/2ML 2ml VIAL (1mg/ml) ONE; +ONDANSETRON HCL 4 MG/2 ML VIAL ONE; +ePHEDrine SULFATE 50 MG/ML AMP ONE; +fentaNYL CITRATE 100 MCG/2 ML VL ONE; +levoFLOXacin 500MG 100 ML IV ONE
[2024-07-12 11:10] VITALS: BP 133/83; PULSE 103; RESP 15; O2SAT 95
== END | disposition home or self-care (01) ==
LOC: SUR 06:18
PROVIDERS: ATTEND Urology
DX: N39.3 Stress incontinence (female) (male) (principal); N36.42 Intrinsic sphincter deficiency (ISD); I10 Essential (primary) hypertension; E03.9 Hypothyroidism, unspecified; M06.9 Rheumatoid arthritis, unspecified; J44.9 Chronic obstructive pulmonary disease, unspecified; Z98.41 Cataract extraction status, right eye; Z98.42 Cataract extraction status, left eye; Z98.890 Other specified postprocedural states; Z79.899 Other long term (current) drug therapy; Z79.890 Hormone replacement therapy; Z98.891 History of uterine scar from previous surgery
CPT/HCPCS: 36415; 51715; 74018; 80053; 81001; 85025; 85610; 85730; 87086; 87088; 87186; J1720; J1956; J2003; J2175; J2250; J2405; J3010; L8606; 76000

== ENCOUNTER → 2024-08-08 | Outpatient (CLI) | payer MEDICARE, OTHER ==
[~2024-08-08] MED LIST changes: -GLYCOPYRROLATE 0.2 MG/ML 1ML VIAL ONE; -HYDROCORTISONE SOD SUCC 100 MG/2ML INJ VIAL ONE; -HYDROmorphone HCL 2 MG/ML VL/or syr IV PRN; -LIDOCAINE 2% (LOCAL ANESTH.) PF 5ml SDV ONE; -MEPERIDINE HCL (50 MG/ML) 1 ML VIAL ONE; -MIDAZOLAM HCL 2MG/2ML 2ml VIAL (1mg/ml) ONE; -ONDANSETRON HCL 4 MG/2 ML VIAL ONE; -ePHEDrine SULFATE 50 MG/ML AMP ONE; -fentaNYL CITRATE 100 MCG/2 ML VL ONE; -levoFLOXacin 500MG 100 ML IV ONE
[2024-08-08 09:10] LABS: Basophils # (auto) 0.1 10 ^3/uL (0-0.2); Basophils % (auto) 0.7 % (0.0-2.0); Eosinophils # (auto) 0.2 10 ^3/uL (0-0.8); Eosinophils % (auto) 1.9 % (0.0-7.0); Hematocrit 38.3 % (36.0-46.0); Hemoglobin 12.8 g/dL (12.2-16.2); Lymphocytes # (auto) 2.2 10 ^3/uL (0.4-5.4); Lymphocytes % (auto) 22.1 % (10.0-50.0); Mean Corpuscular Hemoglobin 33.1 pg (28.0-32.0); Mean Corpuscular Hgb Conc. 33.4 g/dL (32.0-36.0); Mean Corpuscular Volume 98.9 fL (80.0-100.0); Monocytes # (auto) 0.8 10 ^3/uL (0-1.3); Monocytes % (auto) 8.4 % (0.0-12.0); Neutrophils # (auto) 6.6 10 ^3/uL (1.6-8.6); Neutrophils % (auto) 66.9 % (37.0-80.0); Platelet Count (auto) 254 10^3/uL (140-450); Red Blood Cells 3.87 10^6/uL (4.0-5.20); White Blood Cell 9.8 10^3/uL (4.4-10.8)
[2024-08-08 09:40] LABS: Alanine Aminotransferase 29 U/L (7-40); Alkaline Phosphatase 80 U/L (46-116); Anion Gap 6 (5-15); Aspartate Aminotransferase 15 U/L (13-40); BUN/Creatinine Ratio 16.8 (10.0-20.0); Blood Urea Nitrogen 21 mg/dL (9-23); Calcium 9.8 mg/dL (8.7-10.4); Carbon Dioxide 30 mmol/L (20-31); Chloride 108 mmol/L (98-107); Glucose 90 mg/dL (74-106); Potassium 3.7 mmol/L (3.5-5.1); Sodium 144 mmol/L (136-145)
[2024-08-08 09:41] LABS: Albumin 4.5 g/dL (3.2-4.8); Bilirubin, Total 0.5 mg/dL (0.2-1.0); Total Protein 7.2 g/dL (5.7-8.2)
== END | disposition home or self-care (01) ==
LOC: LAB 08:35
PROVIDERS: ATTEND Student in an Organized Health Care Education/Training Program
DX: I10 Essential (primary) hypertension (principal); N39.0 Urinary tract infection, site not specified; E03.8 Other specified hypothyroidism; Z79.899 Other long term (current) drug therapy
CPT/HCPCS: 36415; 80053; 83036; 84439; 84443; 85025; 87086; 87088; 87186

== ENCOUNTER 2024-08-29 11:34 | Inpatient (IN) | payer MEDICARE, OTHER ==
[~2024-08-29] VITALS: Ht 157.5 cm; Wt 88.9 kg
[~2024-08-29 11:34] MED LIST changes: +CHOL1TAB28 PO; +FLUT50SP31 EACHNOSTRI; +LEVO100T8 PO; +METH2.5T PO
--- NOTE | 2024-08-29 11:42 | ECG ---
[facility] Test Date: 2024-08-29 Test Time: 11:41:04 Pat Name: ARMANDO MCCORD Department: ER Room: 0208T Gender: F Substation Technician: DONOVAN : 1945 Requested By: SHRAVAN BAXTER Order Number: [id number] Reading MD: Cesar Umaña Measurements Intervals [place] Rate: 81 P: 37 [place]: 155 QRS: -29 QRSD: 92 T: 63 QT: 409 QTc: 475 Interpretive Statements Sinus rhythm Borderline left axis deviation Baseline wander in lead(s) III,V6 Electronically Signed On 09-02-2024 17:11:03 PST by Cesar Umaña Please click the below link to view image of tracing.
--- NOTE | 2024-08-29 11:51 | ED.PDOC ---
History of Present Illness HPI Comments 78-year-old female presents with a chief complaint of chest pain x onset yesterday with associated back pain. Per patient, her pain is localized to her chest and radiates to her upper back. Patient mentions that she was at urgent care and then was referred to the ER after disclosing that she felt chest pain. Patient denies any SOB, nausea, vomiting, diarrhea, or abdominal pain. No other symptoms or modifying factors present at this time. Chief Complaint: Chest Pain Time Seen by MD: 11:43 Primary Care Provider: MONTANO Reviewed Notes: Nurses Notes, Medications, Allergies Allergies: Coded Allergies: No Known Drug Allergy (Unverified Allergy, Unknown, 11/26/22) Home Meds Reported Medications Cholecalciferol (D3) 50 Mcg Cap, 50 MCG PO DAILY@BREAKFAST, CAP 07/08/24 Ferrous Sulfate (FERROUS SULFATE) 325 Mg Tb, 325 MG PO, TAB 07/08/24 Folic Acid (Folic Acid) 1 Mg Tab, 1 MG PO DAILY, TAB 07/08/24 Methotrexate (Otrexup) 20 Mg/0.4 Ml Inj, 20 MG SC, INJ 07/08/24 Bumetanide (Bumetanide) 2 Mg Tab, 2 MG PO QAM, TAB 07/08/24 Gabapentin (Once-Daily) (Gabapentin) 300 Mg Tab, 300 MG PO, TAB 07/08/24 Metoprolol Succinate (Metoprolol Succinate Er) 25 Mg Tab, 0.5 TAB PO DAILY for 30 Days, MG 07/27/15 Levothyroxine Sodium (Levothyroxine Sodium) 50 Mcg Tab, 100 MCG PO DAILY 12/27/12 Information Source: Patient Mode of Arrival: Ambulatory Severity: Moderate Timing: Days Duration: Since onset Prehospital treatment: None Past Medical History PAST MEDICAL HISTORY: Arthritis, HTN, Thyroid, UTI'S Surgical History: Cholecystectomy, , Tubal Ligation LEATHER STAKER History: No Pertinent LEATHER STAKER History Family History Family History: Reviewed,noncontributory to illness Social History Smoker: Non-Smoker Alcohol: Denies ETOH Use Drugs: Denies Drug Use Lives In: Home Constitutional: denies: chills, diaphoresis, fatigue, fever, malaise, sweats, weakness, others EENTM: denies: blurred vision, double vision, ear bleeding, ear discharge, ear drainage, ear pain, ear ringing, eye pain, eye redness, hearing loss, mouth pain, mouth swelling, nasal discharge, nose bleeding, nose congestion, nose pain, photophobia, tearing, throat pain, throat swelling, voice changes, others Respiratory: denies: cough, hemoptysis, orthopnea, SOB at rest, shortness of breath, SOB with excertion, stridor, wheezing, others Cardiovascular: reports: chest pain; denies: dizzy spells, diaphoresis, Dyspnea on exertion, edema, irregular heart beat, left arm pain, lightheadedness, palpitations, PND, syncope, others Gastrointestinal: denies: abdomen distended, abdominal pain, blood streaked bowels, constipated, diarrhea, dysphagia, difficulty swallowing, hematemesis, melena, nausea, poor appetite, poor fluid intake, rectal bleeding, rectal pain, vomiting, others Genitourinary: denies: abnormal vagina bleeding, burning, dyspareunia, dysuria, flank pain, frequency, hematuria, incontinence, pain, , vagina discharge, urgency, others Neurological: denies: dizziness, fainting, headache, left sided numbness, left sided weakness, numbness, paresthesia, pre-existing deficit, right sided numbness, right sided weakness, seizure, speech problems, tingling, tremors, weakness, others Musculoskeletal: denies: back pain, gout, joint pain, joint swelling, muscle pain, muscle stiffness, neck pain, others Integumetry: denies: bruises, change in color, change in hair/nails, dryness, laceration, lesions, lumps, rash, wounds, others Allergic/Immunocompromised: denies: Difficulty Healing, Frequent Infections, Hives, Itching, others Hematologic/Lymphatic: denies: anemia, blood clots, easy bleeding, easy bruising, swollen glands, others Endocrine: denies: excessive hunger, excessive sweating, excessive thirst, excessive urination, flushing, intolerance to cold, intolerance to heat, unexplained weight gain, unexplained weight loss, others Psychiatric: denies: anxiety, bipolar disorder, depression, hopeless, panic disorder, schizophrenia, sleepless, suicidal, others All Other Systems: Reviewed and Negative Physical Exam General Appearance: Moderate Distress HEENT: Normal ENT Inspection, Pharynx Normal, TMs Normal Neck: Full Range of Motion, Non-Tender, Normal, Normal Inspection Respiratory: Chest Non-Tender, Lungs Clear, No Accessory Muscle Use, No Respiratory Distress, Normal Breath Sounds Cardiovascular: No Edema, No JVD, No Murmur, No Gallop, Normal Peripheral Pulses, Regular Rate/Rhythm Breast Exam: Deferred Gastrointestinal: No Organomegaly, Non Tender, No Pulsatile Mass, Normal Bowel Sounds, Soft Genitalia: Deferred Pelvic: Deferred Rectal: Deferred Extremities: No calf tenderness, Normal capillary refill, Normal inspection, Normal range of motion, Non-tender, No pedal edema Musculoskeletal : Apperance: Normal Neurologic: Alert, road packer operator II-XII nml as Tested, No Motor Deficits, Normal Affect, Normal Mood, No Sensory Deficits Cerebellar Function: Normal Reflexes: Normal Skin: Dry, Normal Color, Warm Lymphatic: No Adenopathy Was a procedure done? Was a procedure done?: No EKG EKG : Pulse Rate (adult): 81 [place]: LAD Cardiac Rhythm: NSR Block: None Hypertrophy: None ST: Normal Differential Dx Considerations may include: Generalized weakness, electrolyte imbalance, dehydration X-Ray, Labs, Meds, VS Vital Signs Date Time Temp Pulse Resp B/P (MAP) Pulse Ox O2 Delivery O2 Flow Rate FiO2 08/29/24 15:14 76 18 149/82 08/29/24 14:57 76 18 149/82 (104) 96 08/29/24 12:15 98.7 81 17 145/91 (109) 98 98.7 08/29/24 12:15 81 08/29/24 11:51 98.9 84 18 135/59 (84) 98 08/29/24 11:51 81 08/29/24 11:41 81 Lab Test 08/29/24 13:09 08/29/24 11:45 Range/Units Troponin I High Sensitivity 4 4 </=34 ng/L White Blood Count 11.7 H 4.4-10.8 10^3/uL Red Blood Count 3.72 L 4.0-5.20 10^6/uL Hemoglobin 12.4 12.2-16.2 g/dL Hematocrit 37.0 36.0-46.0 % Mean Corpuscular Volume 99.4 80.0-100.0 fL Mean Corpuscular Hemoglobin 33.2 H 28.0-32.0 pg Mean Corpuscular Hemoglobin Concent 33.4 32.0-36.0 g/dL Red Cell Distribution Width 14.8 H 11.8-14.3 % Platelet Count 211 140-450 10^3/uL Mean Platelet Volume 7.7 6.9-10.8 fL Neutrophils (%) (Auto) 73.0 37.0-80.0 % Lymphocytes (%) (Auto) 16.1 10.0-50.0 % Monocytes (%) (Auto) 8.1 0.0-12.0 % Eosinophils (%) (Auto) 2.3 0.0-7.0 % Basophils (%) (Auto) 0.5 0.0-2.0 % Neutrophils # (Auto) 8.6 1.6-8.6 10 ^3/uL Lymphocytes # (Auto) 1.9 0.4-5.4 10 ^3/uL Monocytes # (Auto) 1.0 0-1.3 10 ^3/uL Eosinophils # (Auto) 0.3 0-0.8 10 ^3/uL Basophils # (Auto) 0.1 0-0.2 10 ^3/uL Nucleated Red Blood Cells 0.0 % Prothrombin Time 11.0 9.3-11.8 sec Prothrombin Time INR 1.04 0.9-1.15 Activated Partial Thromboplast Time 26.1 24.5-34.5 SEC Sodium Level 145 136-145 mmol/L Potassium Level 3.6 3.5-5.1 mmol/L Chloride Level 111 H 98-107 mmol/L Carbon Dioxide Level 27 20-31 mmol/L Anion Gap 7 5-15 Blood Urea Nitrogen 19 9-23 mg/dL Creatinine 0.98 0.550-1.02 mg/dL Glomerular Filtration Rate Calc 59 >90 mL/min BUN/Creatinine Ratio 19.4 10.0-20.0 Serum Glucose 97 74-106 mg/dL Calcium Level 9.6 8.7-10.4 mg/dL Magnesium Level 2.0 1.6-2.6 mg/dL Total Bilirubin 0.4 0.2-1.0 mg/dL Aspartate Amino Transferase (AST) 14 13-40 U/L Alanine Aminotransferase (ALT) 24 7-40 U/L Alkaline Phosphatase 80 46-116 U/L B-Type Natriuretic Peptide 126.91 0-100 pg/mL Total Protein 6.4 5.7-8.2 g/dL Albumin 4.1 3.2-4.8 g/dL Current Medications Medications (Trade) Dose Ordered Sig/Jani Route Start Time Stop Time Status Last Admin Aspirin 162 mg ONCE ONCE PO 08/29/24 12:00 08/29/24 12:01 DC 08/29/24 12:07 Morphine Sulfate 2 mg ONCE ONCE IV 08/29/24 14:15 08/29/24 14:16 DC 08/29/24 15:14 Ondansetron HCl (Zofran) 4 mg ONCE ONCE IV 08/29/24 14:15 08/29/24 14:16 DC 08/29/24 15:13 Images Reviewed?: Images reviewed and evaluated by me Time of 1ST Reevaluation: 12:13 Reevaluation 1ST: Unchanged Patient Education/Counseling: Diagnosis, Treatment, Prognosis Family Education/Counseling: No Family Present Departure 1 Departure Time of Disposition: 16:25 Impression: Primary Impression: Acute chest pain Additional Impression: ACS (acute coronary syndrome) Disposition: ADMITTED INPATIENT Admit to: [facility] Condition: Fair Critical Care Note Critical Care Time?: No Stability Stability form required: Yes Unstable for transfer: Telemetry monitoring, ED Physician Assesment (Clinical assesment) Heart Score Heart Score: Heart Score Response (Comments) Value History Moderate Suspicious 1 EKG Repolarization Disturb 1 Age >65 2 Risk Factors 1 or 2 risk factors 1 Troponin Normal limit 0 Total 5 I personally scribed for SHRAVAN BAXTER MD ([email or web address]) on 08/29/24 at 11:51. Electronically submitted by Edwin Valencia [email or web address]). SHRAVAN BAXTER MD Aug 29, 2024 11:51
[2024-08-29 11:58] LABS: Basophils # (auto) 0.1 10 ^3/uL (0-0.2); Basophils % (auto) 0.5 % (0.0-2.0); Eosinophils # (auto) 0.3 10 ^3/uL (0-0.8); Eosinophils % (auto) 2.3 % (0.0-7.0); Hemoglobin 12.4 g/dL (12.2-16.2); Lymphocytes # (auto) 1.9 10 ^3/uL (0.4-5.4); Lymphocytes % (auto) 16.1 % (10.0-50.0); Mean Corpuscular Hemoglobin 33.2 pg (28.0-32.0); Mean Corpuscular Hgb Conc. 33.4 g/dL (32.0-36.0); Mean Corpuscular Volume 99.4 fL (80.0-100.0); Monocytes % (auto) 8.1 % (0.0-12.0); Neutrophils # (auto) 8.6 10 ^3/uL (1.6-8.6); Platelet Count (auto) 211 10^3/uL (140-450); Red Blood Cells 3.72 10^6/uL (4.0-5.20); Red Cell Distribution Width 14.8 % (11.8-14.3); White Blood Cell 11.7 10^3/uL (4.4-10.8)
[2024-08-29] MEDS: ASPirin 81 mg TAB PO ONE (12:07)
[2024-08-29 12:16] LABS: INR 1.04 (0.9-1.15); Partial Thromboplastin Time 26.1 SEC (24.5-34.5)
[2024-08-29 12:17] LABS: Alanine Aminotransferase 24 U/L (7-40); Albumin 4.1 g/dL (3.2-4.8); Alkaline Phosphatase 80 U/L (46-116); Anion Gap 7 (5-15); Aspartate Aminotransferase 14 U/L (13-40); BUN/Creatinine Ratio 19.4 (10.0-20.0); Blood Urea Nitrogen 19 mg/dL (9-23); Calcium 9.6 mg/dL (8.7-10.4); Carbon Dioxide 27 mmol/L (20-31); Chloride 111 mmol/L (98-107); Glucose 97 mg/dL (74-106); Potassium 3.6 mmol/L (3.5-5.1); Sodium 145 mmol/L (136-145)
[2024-08-29 12:18] LABS: Bilirubin, Total 0.4 mg/dL (0.2-1.0); Total Protein 6.4 g/dL (5.7-8.2)
[2024-08-29] MEDS: ONDANSETRON HCL 4 MG/2 ML VIAL IV ONE (15:13)
[2024-08-29] MEDS: MORPHINE SULFATE INJ 2 MG/ml SYRG IV ONE (15:14)
[2024-08-29] MEDS ORDERED: ACETAMINOPHEN 325 MG TAB PO PRN (16:45)
[2024-08-29] MEDS ORDERED: MORPHINE SULFATE INJ 2 MG/ml SYRG IV PRN (16:45)
[2024-08-29] MEDS ORDERED: DOCUSATE SOD 100 MG CAP PO PRN (16:45)
[2024-08-29] MEDS ORDERED: ONDANSETRON HCL 4 MG/2 ML VIAL IV PRN (16:45)
[2024-08-29] MEDS ORDERED: NITROGLYCERIN 0.4 MG SL TAB SL PRN ×2 (16:45→17:00)
[2024-08-29] MEDS ORDERED: hydrALAZINE HCL 20 MG/ML VL IV PRN (16:45)
--- NOTE | 2024-08-29 16:45 | DVHHP2 ---
History of Present Illness Reason for Visit: Acute chest pain History of Present Illness The patient is a 78-year-old female with past medical history of UTIs, thyroid disease, arthritis, and hypertension who presented to [facility] ED with complaint of chest pain. Patient reports symptoms progressively get worse with localized left-sided chest pain, Advair to her upper back, constant lower back pain, getting worse today that prompted this visit. Patient was seen and evaluated in the ED, laboratory data shows WBC 11.7, platelets 211, sodium 145, potassium 3.6, BUN 19, creatinine 0.98, glucose 97, BNP 126.91, troponin 4, blood pressure 149/82, heart rate 76, temperature 98.7 F, O2 saturation 98% on room air. Please see medication orders section in the computer. On my assessment, patient denied chest pain at this moment, no headache, no dizziness, no diaphoresis, no shortness of breath, no nausea, no vomiting, no fever, no chills. No other modifying factor or other associated signs and symptoms noted. Patient was admitted for further evaluation and medical management. Past Medical History Arthritis, HTN, Thyroid, UTI'S Past Surgical History Cholecystectomy, , Tubal Ligation Family History Reviewed, noncontributory to the management of this case. Past Social History The patient lives at home, denies smoking, alcohol or illicit drugs abuse. Review of Systems Constitutional: No: Fever, Chills, Sweats, Weakness, Malaise, Other Eyes: No: Pain, Vision change, Conjunctivae inflammation, Eyelid inflammation, Other, Redness ENT: No: Ear pain, Ear discharge, Nose pain, Nose discharge, Nose congestion, Mouth pain, Mouth swelling, Throat pain, Throat swelling, Other Respiratory: No: Cough, Dry, Shortness of breath, SOB with excertion, Wheezing, Hemoptysis, Pleuritic Pain, Sputum, Wheezing, Other Cardiovascular: Chest Pain; No: Palpitations, Orthopnea, Paroxysmal Noc. Dysp tish, Edema, Lt Headedness, Other Gastrointestinal: No: Nausea, Vomiting, Abdominal Pain, Diarrhea, Constipation, Melena, Hematochezia, Other Genitourinary: No Dysuria, No Frequency, No Incontinence, No Hematuria, No Retention, No Other Musculoskeletal: back pain; No: other, neck pain, shoulder pain, arm pain, hand pain, leg pain, foot pain Skin: No: Rash, Lesions, Jaundice, Bruising, Other Neurological: No: Weakness, Numbness, Incoordination, Change in speech, Confusion, Seizures, Other Allergies: Coded Allergies: No Known Drug Allergy (Unverified Allergy, Unknown, 11/26/22) Exam Vital Signs Vital Signs Date Time Temp Pulse Resp B/P (MAP) Pulse Ox O2 Delivery O2 Flow Rate FiO2 08/29/24 15:14 76 18 149/82 08/29/24 14:57 96 08/29/24 12:15 98.7 98.7 General Appearance: Alert, Oriented X3, Cooperative, No acute distress HEENT: Atraumatic, PERRLA, EOMI, Mucous membr. moist/pink Respiratory: Clear to auscultation, Normal air movement Cardiovascular: Regular rate, Normal S1, Normal S2, No murmurs Abdominal: Normal bowel sounds, Soft, No tenderness, No hepatospenomegaly, No masses Extremities: No clubbing, No cyanosis, No edema, Normal pulses, No tenderness /swelling Skin: No rashes, No breakdown, No significant lesion Neuro: Normal speech, Normal tone, Sensation intact, Cranial nerves 3-12 NL, Reflexes 2+, Other (Generalized weakness) Psych/Mental Status: Mental status NL, Mood NL Labs/Xrays Labs Test 08/29/24 13:09 08/29/24 11:45 Range/Units Troponin I High Sensitivity 4 </=34 ng/L White Blood Count 11.7 H 4.4-10.8 10^3/uL Red Blood Count 3.72 L 4.0-5.20 10^6/uL Hemoglobin 12.4 12.2-16.2 g/dL Hematocrit 37.0 36.0-46.0 % Mean Corpuscular Volume 99.4 80.0-100.0 fL Mean Corpuscular Hemoglobin 33.2 H 28.0-32.0 pg Mean Corpuscular Hemoglobin Concent 33.4 32.0-36.0 g/dL Red Cell Distribution Width 14.8 H 11.8-14.3 % Platelet Count 211 140-450 10^3/uL Mean Platelet Volume 7.7 6.9-10.8 fL Neutrophils (%) (Auto) 73.0 37.0-80.0 % Lymphocytes (%) (Auto) 16.1 10.0-50.0 % Monocytes (%) (Auto) 8.1 0.0-12.0 % Eosinophils (%) (Auto) 2.3 0.0-7.0 % Basophils (%) (Auto) 0.5 0.0-2.0 % Neutrophils # (Auto) 8.6 1.6-8.6 10 ^3/uL Lymphocytes # (Auto) 1.9 0.4-5.4 10 ^3/uL Monocytes # (Auto) 1.0 0-1.3 10 ^3/uL Eosinophils # (Auto) 0.3 0-0.8 10 ^3/uL Basophils # (Auto) 0.1 0-0.2 10 ^3/uL Nucleated Red Blood Cells 0.0 % Prothrombin Time 11.0 9.3-11.8 sec Prothrombin Time INR 1.04 0.9-1.15 Activated Partial Thromboplast Time 26.1 24.5-34.5 SEC Sodium Level 145 136-145 mmol/L Potassium Level 3.6 3.5-5.1 mmol/L Chloride Level 111 H 98-107 mmol/L Carbon Dioxide Level 27 20-31 mmol/L Anion Gap 7 5-15 Blood Urea Nitrogen 19 9-23 mg/dL Creatinine 0.98 0.550-1.02 mg/dL Glomerular Filtration Rate Calc 59 >90 mL/min BUN/Creatinine Ratio 19.4 10.0-20.0 Serum Glucose 97 74-106 mg/dL Calcium Level 9.6 8.7-10.4 mg/dL Magnesium Level 2.0 1.6-2.6 mg/dL Total Bilirubin 0.4 0.2-1.0 mg/dL Aspartate Amino Transferase (AST) 14 13-40 U/L Alanine Aminotransferase (ALT) 24 7-40 U/L Alkaline Phosphatase 80 46-116 U/L B-Type Natriuretic Peptide 126.91 0-100 pg/mL Total Protein 6.4 5.7-8.2 g/dL Albumin 4.1 3.2-4.8 g/dL Assessment/Plan Assessment/Plan Acute chest pain Lower back pain Generalized weakness Leukocytosis, unspecified Plan 1. Admit to telemetry unit 2. Breathing treatment 3. Pain control management 4. Management of fluids and electrolytes 5. Consultation for hospitalist 6. Diagnostic tests chest x-ray 7. DVT prophylaxis-on aspirin 8. Repeat labs CBC CMP in a.m. 9. Continue with current medical management 10. Treatment plan discussed with patient and RN. Patient verbalized understanding. Plan discussed with: Patient, Other (RN) My Orders Orders - ROB DENNIS DNP Procedure Category Date Status Time Aspirin Tablet PHA 08/30/24 Verified 10:00 Metoprolol Tartrate PHA 08/29/24 Verified Tablet (Lopressor Ta 22:00 Levothyroxine Tablet PHA 08/30/24 Verified (Synthroid Tablet) 06:00 Hydralazine Injection PHA 08/29/24 Verified (Apresoline Inject 16:45 Admit ADMIT 08/29/24 Verified 16:33 Allergies ELBA 08/29/24 Verified 16:33 Code Status CODE 08/29/24 Verified 16:33 Sodium Chloride Lock PHA 08/29/24 Verified (Saline Lock Ns) 22:00 Oxygen Per Hour RT 08/29/24 Verified 16:33 Hydrocodone-Acet PHA 08/29/24 Verified 5/325mg Tab ([place] 16:45 Ondansetron Hcl PHA 08/29/24 Verified (Zofran) 16:45 Docusate Sodium PHA 08/29/24 Verified Capsule ([place] 16:45 Complete Blood Count LAB 08/30/24 Verified 04:00 Comprehensive LAB 08/30/24 Verified Metabolic Panel 04:00 Cardiac DIET 08/29/24 Verified Diet-2gna,Lofat,Lochol Dinner Condition: Serious ELBA 08/29/24 Verified 16:33 Acetaminophen Tablet PHA 08/29/24 Verified (Tylenol Tablet) 16:45 Bedrest With Bathroom ELBA 08/29/24 Verified Privileg 16:33 Sequential [facility] 08/29/24 Verified Compression Device Nitroglycerin PHA 08/29/24 Verified Sublingual (Ntrostat 16:45 Morphine Sulfate PHA 08/29/24 Verified Injection 16:45 Problem List: (1) Acute chest pain (2) Lower back pain (3) Generalized weakness (4) Leukocytosis, unspecified Date of Service: Aug 29, 2024 Billing Provider: ROB DENNIS DNP Common Visit Codes: [id number] INP/OBS CARE (HIGH) ROB DENNIS DNP Aug 29, 2024 16:45
[2024-08-29] MEDS: HYDROcodone-ACET 5/325MG TAB PO PRN (20:23)
[2024-08-29 21:40] VITALS: BP 111/66; PULSE 96; RESP 18; TEMP 98.5; O2SAT 92
[2024-08-29 21:46] VITALS: BP 111/66; PULSE 92; RESP 16; RESP 18; TEMP 98.5; O2SAT 92
[2024-08-29] MEDS ORDERED: METOPROLOL TARTRATE 25 MG TAB PO SCH (22:00)
[2024-08-29] MEDS: SODIUM CHLOR 0.9% PF (SALINE LOCK) 10ML VIAL/SYR IV SCH (22:20)
[2024-08-29] MEDS: METOPROLOL TARTRATE 25 MG TAB PO SCH (22:21)
[2024-08-29 23:07] LABS: Urine Amorphous Crystal FEW /hpf (None Seen); Urine Bacteria MANY /hpf (None Seen); Urine Blood Negative /uL (Negative); Urine Clarity Turbid (Clear); Urine Color Yellow (Yellow); Urine Hyaline Cast FEW /lpf (0 - 2); Urine Mucus FEW (None Seen); Urine Protein, UAD Negative (Negative); Urine Specific Gravity 1.014 (1.001-1.035); Urine Urobilinogen Normal (Negative); Urine WBC 51 /hpf (0 - 5); Urine pH 5.5 (5.0-9.0)
[2024-08-30] VITALS (9 sets, daily range): BP systolic 75–124; BP diastolic 43–69; PULSE 67–79; RESP 18–22; TEMP 97.8–98.4; O2SAT 94–99
[2024-08-30] MEDS: LEVOTHYROXINE SODIUM 50 MCG TAB PO SCH (05:20)
[2024-08-30] MEDS ORDERED: LEVOTHYROXINE SODIUM 50 MCG TAB PO SCH (06:00)
[2024-08-30 06:56] LABS: Basophils # (auto) 0.1 10 ^3/uL (0-0.2); Basophils % (auto) 0.5 % (0.0-2.0); Eosinophils # (auto) 0.2 10 ^3/uL (0-0.8); Eosinophils % (auto) 1.5 % (0.0-7.0); Hematocrit 33.2 % (36.0-46.0); Hemoglobin 11.2 g/dL (12.2-16.2); Lymphocytes # (auto) 1.8 10 ^3/uL (0.4-5.4); Lymphocytes % (auto) 17.8 % (10.0-50.0); Mean Corpuscular Hemoglobin 33.8 pg (28.0-32.0); Mean Corpuscular Hgb Conc. 33.8 g/dL (32.0-36.0); Monocytes # (auto) 0.9 10 ^3/uL (0-1.3); Monocytes % (auto) 8.6 % (0.0-12.0); Neutrophils # (auto) 7.3 10 ^3/uL (1.6-8.6); Neutrophils % (auto) 71.6 % (37.0-80.0); Platelet Count (auto) 199 10^3/uL (140-450); Red Blood Cells 3.32 10^6/uL (4.0-5.20); White Blood Cell 10.1 10^3/uL (4.4-10.8)
[2024-08-30 07:14] LABS: Alanine Aminotransferase 30 U/L (7-40); Alkaline Phosphatase 64 U/L (46-116); Anion Gap 7 (5-15); BUN/Creatinine Ratio 14.2 (10.0-20.0); Blood Urea Nitrogen 17 mg/dL (9-23); Calcium 9.2 mg/dL (8.7-10.4); Carbon Dioxide 27 mmol/L (20-31); Chloride 110 mmol/L (98-107); Glucose 88 mg/dL (74-106); Sodium 144 mmol/L (136-145)
[2024-08-30 07:16] LABS: Albumin 3.8 g/dL (3.2-4.8); Aspartate Aminotransferase 23 U/L (13-40); Bilirubin, Total 0.7 mg/dL (0.2-1.0); Total Protein 5.9 g/dL (5.7-8.2)
--- NOTE | 2024-08-30 09:10 | DVHPN2 ---
Subjective 78-year-old female with a history of hypothyroidism, hypertension, arthritis comes with chief complaint of upper back pain and chest pain, troponins are negative, EKG was normal She has a UTI , she is asymptomatic no dysuria or frequent urination Changes from previous H/P or p: Changes Eyes: No Pain, No Vision change, No Conjunctivae inflammation, No Eyelid inflammation, No Other, No Redness ENT: No Ear pain, No Ear discharge, No Nose pain, No Nose discharge, No Nose congestion, No Mouth pain, No Mouth swelling, No Throat pain, No Throat swelling, No Other Cardiovascular: Chest Pain; No Palpitations, No Orthopnea, No Paroxysmal Noc. Dyspnea, No Edema, No Lt Headedness, No Other Respiratory: No Cough, No Dry, No Shortness of breath, No SOB with excertion, No Wheezing, No Hemoptysis, No Pleuritic Pain, No Sputum, No Other Gastrointestinal: No Nausea, No Vomiting, No Abdominal Pain, No Diarrhea, No Constipation, No Melena, No Hematochezia, No Other Genitourinary: No Dysuria, No Frequency, No Incontinence, No Hematuria, No Retention, No Other Musculoskeletal: No other, No neck pain, No shoulder pain, No arm pain; back pain; No hand pain, No leg pain, No foot pain Skin: No Rash, No Lesions, No Jaundice, No Bruising, No Other Objective Vitals Vital Signs Date Time Temp Pulse Resp B/P (MAP) Pulse Ox O2 Delivery O2 Flow Rate FiO2 08/30/24 05:00 98.4 74 18 117/69 (85) 94 98.4 08/29/24 21:46 Room Air* 0 21 Intake/Output Intake and Output 08/30/24 07:00 Intake Total 150 ml Output Total 300 ml Balance -150 ml Intake Oral 150 ml Output Urine Total 300 ml General Appearance: Alert, Oriented X3, Cooperative, No acute distress Lungs: Clear to auscultation, Normal air movement Cardiovascular: Regular rate, Normal S1, Normal S2 Abdomen: Normal bowel sounds, Soft, No tenderness Extremities: No edema Medications Current Medications Medications Dose Ordered Sig/Jani Route Start Time Stop Time Status Last Admin Dose Admin Hydralazine HCl 10 mg Q6HP PRN IV 08/29/24 16:45 Sodium Chloride 10 ml Q8HR IV 08/29/24 22:00 08/30/24 05:21 10 ML Acetaminophen/ Hydrocodone Bitart 1 tab Q4HP PRN PO 08/29/24 16:45 08/30/24 06:39 1 TAB Ondansetron HCl 4 mg Q4HP PRN IV 08/29/24 16:45 Docusate Sodium 100 mg BIDPRN PRN PO 08/29/24 16:45 Acetaminophen 650 mg Q6HP PRN PO 08/29/24 16:45 Morphine Sulfate 2 mg Q30M PRN IV 08/29/24 16:45 Aspirin 81 mg DAILY PO 08/30/24 10:00 Metoprolol Tartrate 25 mg BID PO 08/29/24 22:00 08/29/24 22:21 25 MG Levothyroxine Sodium 50 mcg QAM@0600 PO 08/30/24 06:00 08/30/24 05:20 50 MCG Nitroglycerin 0.4 mg Q5MINP PRN SL 08/29/24 17:00 Laboratory Results Laboratory Tests 08/30/24 04:44 Chemistry Test 08/29/24 11:45 08/30/24 04:44 Albumin 4.1 g/dL (3.2-4.8) 3.8 g/dL (3.2-4.8) Calcium Level 9.6 mg/dL (8.7-10.4) 9.2 mg/dL (8.7-10.4) Magnesium Level 2.0 mg/dL (1.6-2.6) Total Protein 6.4 g/dL (5.7-8.2) 5.9 g/dL (5.7-8.2) Coagulation Test 08/29/24 11:45 Prothrombin Time 11.0 sec (9.3-11.8) Prothrombin Time INR 1.04 (0.9-1.15) Activated Partial Thromboplast Time 26.1 SEC (24.5-34.5) Cardiac Markers Test 08/29/24 11:45 B-Type Natriuretic Peptide 126.91 pg/mL (0-100) LFT Test 08/29/24 11:45 08/30/24 04:44 Alanine Aminotransferase (ALT) 24 U/L (7-40) 30 U/L (7-40) Alkaline Phosphatase 80 U/L (46-116) 64 U/L (46-116) Aspartate Amino Transferase (AST) 14 U/L (13-40) 23 U/L (13-40) Total Bilirubin 0.4 mg/dL (0.2-1.0) 0.7 mg/dL (0.2-1.0) Urinalysis Test 08/29/24 22:00 Urine Color Yellow (Yellow) Urine Clarity Turbid (Clear) H Urine pH 5.5 (5.0-9.0) Urine Specific [place] 1.014 (1.001-1.035) Urine Protein Negative (Negative) Urine Ketones Negative (Negative) Urine Blood Negative /uL (Negative) Urine Nitrite 2+ (Negative) H Urine Bilirubin Negative (Negative) Urine Urobilinogen Normal mg/dL (Negative) Urine Leukocyte Esterase 3+ /uL (Negative) Urine RBC 2 /hpf (0 - 4) Urine WBC 51 /hpf (0 - 5) Urine Squamous Epithelial Cells Few /hpf (<5) Urine Amorphous Crystals Few /hpf (None Seen) Urine Bacteria Many /hpf (None Seen) H Urine Hyaline Casts Few /lpf (0 - 2) Urine Mucus Few (None Seen) Urine Glucose Normal mg/dL (Normal) Assessment/Plan Assessment/Plan Chest pain UTI Hypertension Hypotension now Acute kidney injury due to vasomotor nephropathy Hypothyroidism Rheumatoid Arthritis History of ESBL UTI Plan Give a bolus 500 mL NS now due to hypotension Aspirin Echo Cardiology consult Hold metoprolol today, lower the dose to 12.5 mg daily start tomorrow, she takes half a tablet of 25 mg metoprolol succinate at home Resume the home medications including methotrexate 7.5 mg weekly Folic acid Vitamin-D Iron Urine culture Start Rocephin IV 1 g daily Monitor the patient closely Full code Advance directives discussed for more than 20 minute Patient's care was discussed with the daughter at the bedside who helped with interpretation Plan discussed with: Patient My Orders Orders - PIERCE CLAIRE MD Procedure Category Date Status Time Sodium Chloride 0.9% PHA 08/30/24 Logged 09:00 Complete Blood Count LAB 08/31/24 Verified 04:00 Comprehensive LAB 08/31/24 Verified Metabolic Panel 04:00 Magnesium LAB 08/31/24 Verified 04:00 Thyroid Stimulating LAB 08/31/24 Verified Hormone 04:00 Lipid Panel LAB 08/31/24 Verified 04:00 * Cardiology Consult CONS 08/30/24 Transmitted 09:00 Echo 2d Mode Cardiac US 08/30/24 Logged DOP 09:02 Urine Bacterial TONI 08/30/24 Transmitted Culture 09:02 Ceftriaxone Ivpb PHA 08/31/24 Transmitted Rocephin 09:00 Date of Service: Aug 30, 2024 Billing Provider: PIERCE CLAIRE MD Common Visit Codes: [id number] INP/OBS CARE(HIGH) Secondary Visit Codes: [id number] CARE PLAN 30 MINUTES PIERCE CLAIRE MD Aug 30, 2024 09:10
[2024-08-30] MEDS ORDERED: ASPirin 81 mg TAB PO SCH (10:00)
[2024-08-30] MEDS: cefTRIAXone 1GM/50ML D5W 50 ML IV SCH (10:19)
[2024-08-30] MEDS: FOLIC ACID 1 MG TAB PO SCH (10:19)
[2024-08-30] MEDS: ASPirin 81 mg TAB PO SCH (10:19)
[2024-08-30] MEDS: CHOLECALCIFEROL (VITD3) 1,000UNIT=25mCg TAB PO SCH (10:20)
[2024-08-30] MEDS: SODIUM CHLORIDE 0.9% 500 ML IV ONE (10:23)
--- NOTE | 2024-08-30 10:32 | DVH ---
CHEST RADIOGRAPH Indication: CP Technique: Single frontal view of the chest was obtained COMPARISON: CHEST PORTABLE on DOS: 11/27/22, CXRP on DOS: 11/27/22, CHEST PORTABLE on DOS: 07/09/22 FINDINGS: Lines and Tubes: None Lungs: Clear Pleura: No effusion. No pneumothorax. Cardiomediastinal contours: Moderate hiatal hernia. Bones: Unremarkable IMPRESSION: Moderate hiatal hernia.
--- NOTE | 2024-08-30 13:08 | DVHSR ---
APPROVED REPORT EXAM: Two-dimensional and M-mode echocardiogram with Doppler and color Doppler. Blood Pressure: 117/69 mmHg INDICATION Chest Pain RISK FACTORS Height: 62, Weight: 189 DIMENSIONS LVDd4.2 (3.8-5.7cm)LA (2D)4.2 (1.9-4.0cm)Aortic Root3.3 (2.0-3.7cm) LVDs3.0 (2.5-4.0cm)LA (MM) (1.9-4.0cm)Aortic Cusp Exc1.8 (1.5-2.0cm) EF (%) 55.0 (55-70%)Rt. Atrium3.8 (1.9-4.0cm)Asc. Aorta3.2 cm Mitral Valve MitralMitral Stenosis E wave0.67m/sMV Mean GR.mmHg A wave0.93m/sMV Peak GR.79mmHg E/A ratio0.72D MVAcm2 DECEL [id number] 1/2 [id number] IVRTmsDop MVA2.03cm2 Aortic Valve Aortic ValveAortic Stenosis V11.33m/Mikhail Mean GR.6mmHg V21.68m/Mikhail Peak GR.11mmHg LVOT Diameter1.8 (1.8-2.4cm)Doppler AVA2.01cm2 AI P 1/2 Tonw648.13ms Pulmonic Valve V20.97m/s Tricuspid Valve TR Velocity2.71m/s [id number] Other Information Technically limited study due to body habitus and patient position. Conclusion Normal left ventricular size and dimension. Normal left ventricular systolic function with estimated ejection fraction 55%. There is a grade 1 diastolic dysfunction. Normal right ventricular size and dimension. Normal left ventricular systolic function. Normal biatrial size and dimension. Normal aortic valve structure and function. There is mild aortic valve sclerosis. Normal mitral valve structure and function. Normal tricuspid valve structure and function. The pulmonary valve is grossly normal. No pericardial effusion
[2024-08-31] VITALS (8 sets, daily range): BP systolic 106–139; BP diastolic 55–82; PULSE 66–101; RESP 18–20; TEMP 97.8–98.4; O2SAT 93–99
[2024-08-31 06:06] LABS: Basophils # (auto) 0.1 10 ^3/uL (0-0.2); Basophils % (auto) 0.7 % (0.0-2.0); Eosinophils # (auto) 0.2 10 ^3/uL (0-0.8); Eosinophils % (auto) 2.9 % (0.0-7.0); Hematocrit 32.1 % (36.0-46.0); Hemoglobin 10.9 g/dL (12.2-16.2); Lymphocytes # (auto) 1.8 10 ^3/uL (0.4-5.4); Lymphocytes % (auto) 20.9 % (10.0-50.0); Mean Corpuscular Volume 100.1 fL (80.0-100.0); Monocytes # (auto) 0.8 10 ^3/uL (0-1.3); Monocytes % (auto) 9.9 % (0.0-12.0); Neutrophils # (auto) 5.6 10 ^3/uL (1.6-8.6); Neutrophils % (auto) 65.6 % (37.0-80.0); Platelet Count (auto) 179 10^3/uL (140-450); Red Blood Cells 3.21 10^6/uL (4.0-5.20); Red Cell Distribution Width 14.8 % (11.8-14.3); White Blood Cell 8.5 10^3/uL (4.4-10.8)
[2024-08-31 06:15] LABS: Alanine Aminotransferase 25 U/L (7-40); Albumin 3.6 g/dL (3.2-4.8); Alkaline Phosphatase 63 U/L (46-116); Anion Gap 6 (5-15); Aspartate Aminotransferase 18 U/L (13-40); BUN/Creatinine Ratio 14.5 (10.0-20.0); Blood Urea Nitrogen 18 mg/dL (9-23); Carbon Dioxide 28 mmol/L (20-31); Chloride 110 mmol/L (98-107); Cholesterol 159 mg/dL (< 200); Glucose 110 mg/dL (74-106); HDL Cholesterol 40 mg/dL (40-59); LDL Cholesterol 103 mg/dL (< 100); Magnesium 2.1 mg/dL (1.6-2.6); Potassium 4.2 mmol/L (3.5-5.1); Sodium 144 mmol/L (136-145); Triglycerides 98 mg/dL (< 150)
[2024-08-31 06:16] LABS: Bilirubin, Total 0.5 mg/dL (0.2-1.0); Total Protein 5.8 g/dL (5.7-8.2)
--- NOTE | 2024-08-31 08:26 | DVHPN2 ---
Progress Note - Dictate Date Seen: Aug 30, 2024 Medical Necessity Reason Pt with a Central, PICC or Fol: No Subjective PT WITH BACK PAIN WITH REFERRED CHEST PAIN ECG NEGATIVE TROPONIN NEGATIVE HX OF HTH HYPOTHYROIDISM ARTHRITIS vital signs Vital Sign Date Time Temp Pulse Resp B/P (MAP) Pulse Ox O2 Delivery O2 Flow Rate FiO2 08/31/24 05:00 97.8 66 19 131/67 (88) 98 97.8 08/30/24 20:00 Nasal Cannula* 2 28 Total Intake and Output 08/30/24 08/30/24 08/31/24 15:00 23:00 07:00 Intake Total 50 ml 900 ml 125 ml Balance 50 ml 900 ml 125 ml medications Current Medications Medications Dose Ordered Sig/Jani Route Start Time Stop Time Status Last Admin Dose Admin Hydralazine HCl 10 mg Q6HP PRN IV 08/29/24 16:45 Sodium Chloride 10 ml Q8HR IV 08/29/24 22:00 08/31/24 05:19 10 ML Acetaminophen/ Hydrocodone Bitart 1 tab Q4HP PRN PO 08/29/24 16:45 08/31/24 08:10 1 TAB Ondansetron HCl 4 mg Q4HP PRN IV 08/29/24 16:45 Docusate Sodium 100 mg BIDPRN PRN PO 08/29/24 16:45 Acetaminophen 650 mg Q6HP PRN PO 08/29/24 16:45 Morphine Sulfate 2 mg Q30M PRN IV 08/29/24 16:45 Aspirin 81 mg DAILY PO 08/30/24 10:00 08/30/24 10:19 81 MG Levothyroxine Sodium 50 mcg QAM@0600 PO 08/30/24 06:00 08/31/24 05:19 50 MCG Nitroglycerin 0.4 mg Q5MINP PRN SL 08/29/24 17:00 Ceftriaxone Sodium 50 ml @ 100 mls/hr DAILY@09 IV 08/30/24 09:18 08/31/24 08:10 100 MLS/HR Metoprolol Succinate 12.5 mg DAILY PO 08/31/24 10:00 Methotrexate 7.5 mg Q7D PO 08/31/24 10:00 Folic Acid 1 mg DAILY PO 08/30/24 10:00 08/30/24 10:19 1 MG Cholecalciferol 2,000 unit DAILY PO 08/30/24 10:00 08/30/24 10:20 2,000 UNIT laboratory and microbiology Laboratory Tests 08/31/24 05:15 Test 08/31/24 05:15 Range/Units Serum Glucose 110 H 74-106 mg/dL Problem List BACK PAIN WITH REFERRED CHEST PAIN ECG NEGATIVE TROPONIN NEGATIVE HX OF HTH HYPOTHYROIDISM ARTHRITIS ANEMIA UTI HIATAL HERNIA Assessment/Plan ABX PROTON INHIBITOR Plan discussed with: Patient RAJEEV LUNA MD Aug 31, 2024 08:26
[2024-08-31] MEDS: METOPROLOL SUCCINATE XL 50 MG TAB PO SCH (10:00)
[2024-08-31] MEDS: METHOTREXATE 2.5 MG TAB PO SCH (11:07)
--- NOTE | 2024-08-31 15:48 | DVHPN2 ---
Subjective No new complaints Complains of upper back pain intermittently Changes from previous H/P or p: Changes Eyes: No Pain, No Vision change, No Conjunctivae inflammation, No Eyelid inflammation, No Other, No Redness ENT: No Ear pain, No Ear discharge, No Nose pain, No Nose discharge, No Nose congestion, No Mouth pain, No Mouth swelling, No Throat pain, No Throat swelling, No Other Cardiovascular: Chest Pain; No Palpitations, No Orthopnea, No Paroxysmal Noc. Dyspnea, No Edema, No Lt Headedness, No Other Respiratory: No Cough, No Dry, No Shortness of breath, No SOB with excertion, No Wheezing, No Hemoptysis, No Pleuritic Pain, No Sputum, No Other Gastrointestinal: No Nausea, No Vomiting, No Abdominal Pain, No Diarrhea, No Constipation, No Melena, No Hematochezia, No Other Genitourinary: No Dysuria, No Frequency, No Incontinence, No Hematuria, No Retention, No Other Musculoskeletal: No other, No neck pain, No shoulder pain, No arm pain; back pain; No hand pain, No leg pain, No foot pain Skin: No Rash, No Lesions, No Jaundice, No Bruising, No Other Objective Vitals Vital Signs Date Time Temp Pulse Resp B/P (MAP) Pulse Ox O2 Delivery O2 Flow Rate FiO2 08/31/24 13:00 98.0 74 20 118/56 (76) 93 98.0 08/31/24 08:00 Nasal Cannula* 2 28 Intake/Output Intake and Output 08/31/24 07:00 Intake Total 1075 ml Balance 1075 ml Intake Oral 1025 ml IV Total 50 ml # Voids 7 General Appearance: Alert, Oriented X3, Cooperative, No acute distress Lungs: Clear to auscultation, Normal air movement Cardiovascular: Regular rate, Normal S1, Normal S2 Abdomen: Normal bowel sounds, Soft, No tenderness Extremities: No edema Medications Current Medications Medications Dose Ordered Sig/Jani Route Start Time Stop Time Status Last Admin Dose Admin Hydralazine HCl 10 mg Q6HP PRN IV 08/29/24 16:45 Sodium Chloride 10 ml Q8HR IV 08/29/24 22:00 08/31/24 11:01 10 ML Acetaminophen/ Hydrocodone Bitart 1 tab Q4HP PRN PO 08/29/24 16:45 08/31/24 08:10 1 TAB Ondansetron HCl 4 mg Q4HP PRN IV 08/29/24 16:45 Docusate Sodium 100 mg BIDPRN PRN PO 08/29/24 16:45 Acetaminophen 650 mg Q6HP PRN PO 08/29/24 16:45 Morphine Sulfate 2 mg Q30M PRN IV 08/29/24 16:45 Aspirin 81 mg DAILY PO 08/30/24 10:00 08/31/24 10:59 81 MG Levothyroxine Sodium 50 mcg QAM@0600 PO 08/30/24 06:00 08/31/24 05:19 50 MCG Nitroglycerin 0.4 mg Q5MINP PRN SL 08/29/24 17:00 Ceftriaxone Sodium 50 ml @ 100 mls/hr DAILY@09 IV 08/30/24 09:18 08/31/24 08:10 100 MLS/HR Metoprolol Succinate 12.5 mg DAILY PO 08/31/24 10:00 Methotrexate 7.5 mg Q7D PO 08/31/24 10:00 08/31/24 11:07 7.5 MG Folic Acid 1 mg DAILY PO 08/30/24 10:00 08/31/24 10:59 1 MG Cholecalciferol 2,000 unit DAILY PO 08/30/24 10:00 08/31/24 11:00 2,000 UNIT Laboratory Results Laboratory Tests 08/31/24 05:15 Chemistry Test 08/31/24 05:15 Albumin 3.6 g/dL (3.2-4.8) Calcium Level 9.0 mg/dL (8.7-10.4) Magnesium Level 2.1 mg/dL (1.6-2.6) Total Protein 5.8 g/dL (5.7-8.2) Lipid panel Test 08/31/24 05:15 Cholesterol Level 159 mg/dL (< 200) HDL Cholesterol 40 mg/dL (40-59) Triglycerides Level 98 mg/dL (< 150) LFT Test 08/31/24 05:15 Alanine Aminotransferase (ALT) 25 U/L (7-40) Alkaline Phosphatase 63 U/L (46-116) Aspartate Amino Transferase (AST) 18 U/L (13-40) Total Bilirubin 0.5 mg/dL (0.2-1.0) HgA1c, TSH Test 08/31/24 05:15 Thyroid Stimulating Hormone (TSH) 2.81 uIU/mL (0.55-4.78) Urinalysis Test 08/29/24 22:00 Urine Color Yellow (Yellow) Urine Clarity Turbid (Clear) H Urine pH 5.5 (5.0-9.0) Urine Specific [place] 1.014 (1.001-1.035) Urine Protein Negative (Negative) Urine Ketones Negative (Negative) Urine Blood Negative /uL (Negative) Urine Nitrite 2+ (Negative) H Urine Bilirubin Negative (Negative) Urine Urobilinogen Normal mg/dL (Negative) Urine Leukocyte Esterase 3+ /uL (Negative) Urine RBC 2 /hpf (0 - 4) Urine WBC 51 /hpf (0 - 5) Urine Squamous Epithelial Cells Few /hpf (<5) Urine Amorphous Crystals Few /hpf (None Seen) Urine Bacteria Many /hpf (None Seen) H Urine Hyaline Casts Few /lpf (0 - 2) Urine Mucus Few (None Seen) Urine Glucose Normal mg/dL (Normal) Microbiology Microbiology Date/Time Source Procedure Growth Status 08/30/24 20:30 Voided Urine Urine Culture - Preliminary Resulted Assessment/Plan Assessment/Plan Chest pain UTI Hypertension Hypotension now Acute kidney injury due to vasomotor nephropathy Hypothyroidism Rheumatoid Arthritis History of ESBL UTI Plan 08/30/2024: Give a bolus 500 mL NS now due to hypotension Aspirin Echo Cardiology consult Hold metoprolol today, lower the dose to 12.5 mg daily start tomorrow, she takes half a tablet of 25 mg metoprolol succinate at home Resume the home medications including methotrexate 7.5 mg weekly Folic acid Vitamin-D Iron Urine culture Start Rocephin IV 1 g daily Monitor the patient closely Full code Advance directives discussed for more than 20 minute Patient's care was discussed with the daughter at the bedside who helped with interpretation 08/31/2024: Continue IV Rocephin Urine culture is pending Monitor in the hospital 1 more day Vital signs are stable The rest of the management will depend on the hospital course Plan discussed with: Patient Date of Service: Aug 31, 2024 Billing Provider: PIERCE LCAIRE MD Common Visit Codes: [id number] INP/OBS CARE(HIGH) PIERCE CLAIRE MD Aug 31, 2024 15:48
[2024-09-01] VITALS (8 sets, daily range): BP systolic 102–136; BP diastolic 52–74; PULSE 82–99; RESP 16–18; TEMP 97.3–98.2; O2SAT 91–94
[2024-09-01 09:11] LABS: Hepatitis B Surface Antigen Negative (Negative)
--- NOTE | 2024-09-01 09:31 | DVHPN2 ---
Progress Note - Dictate Date Seen: Aug 31, 2024 Medical Necessity Reason Pt with a Central, PICC or Fol: No Subjective PT WITH BACK PAIN WITH REFERRED CHEST PAIN ECG NEGATIVE TROPONIN NEGATIVE HX OF HTH HYPOTHYROIDISM ARTHRITIS vital signs Vital Sign Date Time Temp Pulse Resp B/P (MAP) Pulse Ox O2 Delivery O2 Flow Rate FiO2 09/01/24 08:44 98.2 85 16 113/52 (72) 91 98.2 08/31/24 20:00 Nasal Cannula* 2 28 Total Intake and Output 08/31/24 08/31/24 09/01/24 15:00 23:00 07:00 Intake Total 400 ml 800 ml Output Total 600 ml Balance 400 ml 200 ml medications Current Medications Medications Dose Ordered Sig/Jani Route Start Time Stop Time Status Last Admin Dose Admin Hydralazine HCl 10 mg Q6HP PRN IV 08/29/24 16:45 Sodium Chloride 10 ml Q8HR IV 08/29/24 22:00 09/01/24 05:22 10 ML Acetaminophen/ Hydrocodone Bitart 1 tab Q4HP PRN PO 08/29/24 16:45 09/01/24 05:25 1 TAB Ondansetron HCl 4 mg Q4HP PRN IV 08/29/24 16:45 Docusate Sodium 100 mg BIDPRN PRN PO 08/29/24 16:45 Acetaminophen 650 mg Q6HP PRN PO 08/29/24 16:45 Morphine Sulfate 2 mg Q30M PRN IV 08/29/24 16:45 Aspirin 81 mg DAILY PO 08/30/24 10:00 08/31/24 10:59 81 MG Levothyroxine Sodium 50 mcg QAM@0600 PO 08/30/24 06:00 09/01/24 05:23 50 MCG Nitroglycerin 0.4 mg Q5MINP PRN SL 08/29/24 17:00 Ceftriaxone Sodium 50 ml @ 100 mls/hr DAILY@09 IV 08/30/24 09:18 09/01/24 08:40 100 MLS/HR Metoprolol Succinate 12.5 mg DAILY PO 08/31/24 10:00 Methotrexate 7.5 mg Q7D PO 08/31/24 10:00 08/31/24 11:07 7.5 MG Folic Acid 1 mg DAILY PO 08/30/24 10:00 08/31/24 10:59 1 MG Cholecalciferol 2,000 unit DAILY PO 08/30/24 10:00 08/31/24 11:00 2,000 UNIT laboratory and microbiology Laboratory Tests 08/31/24 05:15 Test 08/31/24 05:15 Range/Units Serum Glucose 110 H 74-106 mg/dL Problem List BACK PAIN WITH REFERRED CHEST PAIN ECG NEGATIVE TROPONIN NEGATIVE HX OF HTH HYPOTHYROIDISM ARTHRITIS ANEMIA UTI HIATAL HERNIA Assessment/Plan ABX PROTON INHIBITOR LEUKOCYTOSIS RESOLVED SX IMPROVED Plan discussed with: Patient, Daughter RAJEEV LUNA MD Sep 01, 2024 09:31
--- NOTE | 2024-09-01 09:31 | DVHPN2 ---
Progress Note - Dictate Date Seen: Sep 01, 2024 Medical Necessity Reason Pt with a Central, PICC or Fol: No Subjective PT WITH BACK PAIN WITH REFERRED CHEST PAIN ECG NEGATIVE TROPONIN NEGATIVE HX OF HTH HYPOTHYROIDISM ARTHRITIS vital signs Vital Sign Date Time Temp Pulse Resp B/P (MAP) Pulse Ox O2 Delivery O2 Flow Rate FiO2 09/01/24 08:44 98.2 85 16 113/52 (72) 91 98.2 08/31/24 20:00 Nasal Cannula* 2 28 Total Intake and Output 08/31/24 08/31/24 09/01/24 15:00 23:00 07:00 Intake Total 400 ml 800 ml Output Total 600 ml Balance 400 ml 200 ml medications Current Medications Medications Dose Ordered Sig/Jani Route Start Time Stop Time Status Last Admin Dose Admin Hydralazine HCl 10 mg Q6HP PRN IV 08/29/24 16:45 Sodium Chloride 10 ml Q8HR IV 08/29/24 22:00 09/01/24 05:22 10 ML Acetaminophen/ Hydrocodone Bitart 1 tab Q4HP PRN PO 08/29/24 16:45 09/01/24 05:25 1 TAB Ondansetron HCl 4 mg Q4HP PRN IV 08/29/24 16:45 Docusate Sodium 100 mg BIDPRN PRN PO 08/29/24 16:45 Acetaminophen 650 mg Q6HP PRN PO 08/29/24 16:45 Morphine Sulfate 2 mg Q30M PRN IV 08/29/24 16:45 Aspirin 81 mg DAILY PO 08/30/24 10:00 08/31/24 10:59 81 MG Levothyroxine Sodium 50 mcg QAM@0600 PO 08/30/24 06:00 09/01/24 05:23 50 MCG Nitroglycerin 0.4 mg Q5MINP PRN SL 08/29/24 17:00 Ceftriaxone Sodium 50 ml @ 100 mls/hr DAILY@09 IV 08/30/24 09:18 09/01/24 08:40 100 MLS/HR Metoprolol Succinate 12.5 mg DAILY PO 08/31/24 10:00 Methotrexate 7.5 mg Q7D PO 08/31/24 10:00 08/31/24 11:07 7.5 MG Folic Acid 1 mg DAILY PO 08/30/24 10:00 08/31/24 10:59 1 MG Cholecalciferol 2,000 unit DAILY PO 08/30/24 10:00 08/31/24 11:00 2,000 UNIT laboratory and microbiology Laboratory Tests 08/31/24 05:15 Test 08/31/24 05:15 Range/Units Serum Glucose 110 H 74-106 mg/dL Problem List BACK PAIN WITH REFERRED CHEST PAIN ECG NEGATIVE TROPONIN NEGATIVE HX OF HTH HYPOTHYROIDISM ARTHRITIS ANEMIA UTI HIATAL HERNIA Assessment/Plan ABX PROTON INHIBITOR LEUKOCYTOSIS RESOLVED SX IMPROVED PREDNISONE Plan discussed with: Patient RAJEEV LUNA MD Sep 01, 2024 09:31
[2024-09-01 09:32] LABS: Hepatitis C Antibody Negative (Negative)
--- NOTE | 2024-09-01 11:43 | DVHPN2 ---
Subjective No new complaints Awaiting the urine culture is still pending Changes from previous H/P or p: Changes Eyes: No Pain, No Vision change, No Conjunctivae inflammation, No Eyelid inflammation, No Other, No Redness ENT: No Ear pain, No Ear discharge, No Nose pain, No Nose discharge, No Nose congestion, No Mouth pain, No Mouth swelling, No Throat pain, No Throat swelling, No Other Cardiovascular: Chest Pain; No Palpitations, No Orthopnea, No Paroxysmal Noc. Dyspnea, No Edema, No Lt Headedness, No Other Respiratory: No Cough, No Dry, No Shortness of breath, No SOB with excertion, No Wheezing, No Hemoptysis, No Pleuritic Pain, No Sputum, No Other Gastrointestinal: No Nausea, No Vomiting, No Abdominal Pain, No Diarrhea, No Constipation, No Melena, No Hematochezia, No Other Genitourinary: No Dysuria, No Frequency, No Incontinence, No Hematuria, No Retention, No Other Musculoskeletal: No other, No neck pain, No shoulder pain, No arm pain; back pain; No hand pain, No leg pain, No foot pain Skin: No Rash, No Lesions, No Jaundice, No Bruising, No Other Objective Vitals Vital Signs Date Time Temp Pulse Resp B/P (MAP) Pulse Ox O2 Delivery O2 Flow Rate FiO2 09/01/24 09:49 85 113/52 09/01/24 08:44 98.2 16 91 98.2 09/01/24 08:00 Room Air* 0 21 Intake/Output Intake and Output 09/01/24 07:00 Intake Total 1200 ml Output Total 600 ml Balance 600 ml Intake Oral 1200 ml Output Urine Total 600 ml # Voids 5 General Appearance: Alert, Oriented X3, Cooperative, No acute distress Lungs: Clear to auscultation, Normal air movement Cardiovascular: Regular rate, Normal S1, Normal S2 Abdomen: Normal bowel sounds, Soft, No tenderness Extremities: No edema Medications Current Medications Medications Dose Ordered Sig/Jani Route Start Time Stop Time Status Last Admin Dose Admin Hydralazine HCl 10 mg Q6HP PRN IV 08/29/24 16:45 Sodium Chloride 10 ml Q8HR IV 08/29/24 22:00 09/01/24 05:22 10 ML Acetaminophen/ Hydrocodone Bitart 1 tab Q4HP PRN PO 08/29/24 16:45 09/01/24 05:25 1 TAB Ondansetron HCl 4 mg Q4HP PRN IV 08/29/24 16:45 Docusate Sodium 100 mg BIDPRN PRN PO 08/29/24 16:45 Acetaminophen 650 mg Q6HP PRN PO 08/29/24 16:45 Morphine Sulfate 2 mg Q30M PRN IV 08/29/24 16:45 Aspirin 81 mg DAILY PO 08/30/24 10:00 09/01/24 09:48 81 MG Levothyroxine Sodium 50 mcg QAM@0600 PO 08/30/24 06:00 09/01/24 05:23 50 MCG Nitroglycerin 0.4 mg Q5MINP PRN SL 08/29/24 17:00 Ceftriaxone Sodium 50 ml @ 100 mls/hr DAILY@09 IV 08/30/24 09:18 09/01/24 08:40 100 MLS/HR Metoprolol Succinate 12.5 mg DAILY PO 08/31/24 10:00 Methotrexate 7.5 mg Q7D PO 08/31/24 10:00 08/31/24 11:07 7.5 MG Folic Acid 1 mg DAILY PO 08/30/24 10:00 09/01/24 09:48 1 MG Cholecalciferol 2,000 unit DAILY PO 08/30/24 10:00 09/01/24 09:48 2,000 UNIT Prednisone 20 mg DAILY PO 09/01/24 10:00 Laboratory Results Laboratory Tests 08/31/24 05:15 Urinalysis Test 08/29/24 22:00 Urine Color Yellow (Yellow) Urine Clarity Turbid (Clear) H Urine pH 5.5 (5.0-9.0) Urine Specific [place] 1.014 (1.001-1.035) Urine Protein Negative (Negative) Urine Ketones Negative (Negative) Urine Blood Negative /uL (Negative) Urine Nitrite 2+ (Negative) H Urine Bilirubin Negative (Negative) Urine Urobilinogen Normal mg/dL (Negative) Urine Leukocyte Esterase 3+ /uL (Negative) Urine RBC 2 /hpf (0 - 4) Urine WBC 51 /hpf (0 - 5) Urine Squamous Epithelial Cells Few /hpf (<5) Urine Amorphous Crystals Few /hpf (None Seen) Urine Bacteria Many /hpf (None Seen) H Urine Hyaline Casts Few /lpf (0 - 2) Urine Mucus Few (None Seen) Urine Glucose Normal mg/dL (Normal) Microbiology Microbiology Date/Time Source Procedure Growth Status 08/30/24 20:30 Voided Urine Urine Culture - Preliminary Resulted Assessment/Plan Assessment/Plan Chest pain UTI Hypertension Hypotension now Acute kidney injury due to vasomotor nephropathy Hypothyroidism Rheumatoid Arthritis History of ESBL UTI Plan 08/30/2024: Give a bolus 500 mL NS now due to hypotension Aspirin Echo Cardiology consult Hold metoprolol today, lower the dose to 12.5 mg daily start tomorrow, she takes half a tablet of 25 mg metoprolol succinate at home Resume the home medications including methotrexate 7.5 mg weekly Folic acid Vitamin-D Iron Urine culture Start Rocephin IV 1 g daily Monitor the patient closely Full code Advance directives discussed for more than 20 minute Patient's care was discussed with the daughter at the bedside who helped with interpretation 08/31/2024: Continue IV Rocephin Urine culture is pending Monitor in the hospital 1 more day Vital signs are stable The rest of the management will depend on the hospital course 09/01/2024: Continue current management with the IV antibiotics pending the urine culture Urine culture showing Gram-negative rods but the sensitivity is not back yet Continue aspirin, metoprolol, Hot packs to the neck muscles Observe closely Plan discussed with: Patient Date of Service: Sep 01, 2024 Billing Provider: PIERCE CLAIRE MD Common Visit Codes: [id number] INP/OBS CARE(HIGH) PIERCE CLAIRE MD Sep 01, 2024 11:43
[2024-09-01] MEDS: predniSONE 20 MG TAB PO SCH (15:34)
[2024-09-01] MEDS: MEROPENEM 1GM IVPB 50 ML IV ONE (18:30)
[2024-09-01] MEDS: MEROPENEM 1GM IVPB 50 ML IV SCH (21:27)
[2024-09-02 01:00] VITALS: BP 130/65; PULSE 85; RESP 17; TEMP 96.4; O2SAT 93
[2024-09-02 05:00] VITALS: BP 110/65; PULSE 77; RESP 18; TEMP 98.3; O2SAT 94
[2024-09-02 08:00] VITALS: PULSE 70; RESP 18
--- NOTE | 2024-09-02 08:44 | DVHPN2 ---
Progress Note - Dictate Date Seen: Sep 02, 2024 Medical Necessity Reason Pt with a Central, PICC or Fol: No Subjective PT WITH BACK PAIN WITH REFERRED CHEST PAIN ECG NEGATIVE TROPONIN NEGATIVE HX OF HTH HYPOTHYROIDISM ARTHRITIS vital signs Vital Sign Date Time Temp Pulse Resp B/P (MAP) Pulse Ox O2 Delivery O2 Flow Rate FiO2 09/02/24 05:00 98.3 77 18 110/65 (80) 94 98.3 09/01/24 20:00 Room Air* 0 21 Total Intake and Output 09/01/24 09/01/24 09/02/24 15:00 23:00 07:00 Intake Total 50 ml 750 ml 250 ml Output Total 4 ml Balance 50 ml 746 ml 250 ml medications Current Medications Medications Dose Ordered Sig/Jani Route Start Time Stop Time Status Last Admin Dose Admin Hydralazine HCl 10 mg Q6HP PRN IV 08/29/24 16:45 Sodium Chloride 10 ml Q8HR IV 08/29/24 22:00 09/02/24 05:37 10 ML Acetaminophen/ Hydrocodone Bitart 1 tab Q4HP PRN PO 08/29/24 16:45 09/01/24 21:28 1 TAB Ondansetron HCl 4 mg Q4HP PRN IV 08/29/24 16:45 Docusate Sodium 100 mg BIDPRN PRN PO 08/29/24 16:45 Acetaminophen 650 mg Q6HP PRN PO 08/29/24 16:45 Morphine Sulfate 2 mg Q30M PRN IV 08/29/24 16:45 Aspirin 81 mg DAILY PO 08/30/24 10:00 09/01/24 09:48 81 MG Levothyroxine Sodium 50 mcg QAM@0600 PO 08/30/24 06:00 09/02/24 05:33 50 MCG Nitroglycerin 0.4 mg Q5MINP PRN SL 08/29/24 17:00 Metoprolol Succinate 12.5 mg DAILY PO 08/31/24 10:00 Methotrexate 7.5 mg Q7D PO 08/31/24 10:00 08/31/24 11:07 7.5 MG Folic Acid 1 mg DAILY PO 08/30/24 10:00 09/01/24 09:48 1 MG Cholecalciferol 2,000 unit DAILY PO 08/30/24 10:00 09/01/24 09:48 2,000 UNIT Prednisone 20 mg DAILY PO 09/01/24 10:00 09/01/24 15:34 20 MG Meropenem 50 ml @ 17 mls/hr Q12HR IV 09/01/24 22:00 09/01/24 21:27 17 MLS/HR laboratory and microbiology Laboratory Tests 08/31/24 05:15 Test 08/31/24 05:15 Range/Units Serum Glucose 110 H 74-106 mg/dL Problem List BACK PAIN WITH REFERRED CHEST PAIN ECG NEGATIVE TROPONIN NEGATIVE HX OF HTH HYPOTHYROIDISM ARTHRITIS ANEMIA UTI/ ESBL HIATAL HERNIA Assessment/Plan ABX PROTON INHIBITOR LEUKOCYTOSIS RESOLVED SX IMPROVED PREDNISONE DC HOME ON STEROIDS X 5 DAYS ORAL ABX EITHER MACROBID OR BACTRIM X 5 DAYS FOLLOWUP IN 1 WEEK Plan discussed with: Patient, Daughter RAJEEV LUNA MD Sep 02, 2024 08:44
[2024-09-02 09:00] VITALS: BP 109/66; PULSE 79; RESP 16; TEMP 97.8; O2SAT 91
[2024-09-02] MEDS ORDERED: BACDST PO (09:37)
--- NOTE | 2024-09-02 09:41 | DVHDS2 ---
Discharge Summary Date of Admission Aug 29, 2024 at 16:33 Date of Discharge: Sep 02, 2024 Labs/Diagnostic Data: Laboratory Results Test 08/31/24 05:15 08/30/24 04:44 08/29/24 22:00 08/29/24 13:09 White Blood Count 8.5 10^3/uL (4.4-10.8) Red Blood Count 3.21 10^6/uL (4.0-5.20) Hemoglobin 10.9 g/dL (12.2-16.2) Hematocrit 32.1 % (36.0-46.0) Mean Corpuscular Volume 100.1 fL (80.0-100.0) Mean Corpuscular Hemoglobin 34.0 pg (28.0-32.0) Mean Corpuscular Hemoglobin Concent 34.0 g/dL (32.0-36.0) Red Cell Distribution Width 14.8 % (11.8-14.3) Platelet Count 179 10^3/uL (140-450) Mean Platelet Volume 8.3 fL (6.9-10.8) Neutrophils (%) (Auto) 65.6 % (37.0-80.0) Lymphocytes (%) (Auto) 20.9 % (10.0-50.0) Monocytes (%) (Auto) 9.9 % (0.0-12.0) Eosinophils (%) (Auto) 2.9 % (0.0-7.0) Basophils (%) (Auto) 0.7 % (0.0-2.0) Neutrophils # (Auto) 5.6 10 ^3/uL (1.6-8.6) Lymphocytes # (Auto) 1.8 10 ^3/uL (0.4-5.4) Monocytes # (Auto) 0.8 10 ^3/uL (0-1.3) Eosinophils # (Auto) 0.2 10 ^3/uL (0-0.8) Basophils # (Auto) 0.1 10 ^3/uL (0-0.2) Nucleated Red Blood Cells 0.0 % Sodium Level 144 mmol/L (136-145) Potassium Level 4.2 mmol/L (3.5-5.1) Chloride Level 110 mmol/L (98-107) Carbon Dioxide Level 28 mmol/L (20-31) Anion Gap 6 (5-15) Blood Urea Nitrogen 18 mg/dL (9-23) Creatinine 1.24 mg/dL (0.550-1.02) Glomerular Filtration Rate Calc 45 mL/min (>90) BUN/Creatinine Ratio 14.5 (10.0-20.0) Serum Glucose 110 mg/dL (74-106) Calcium Level 9.0 mg/dL (8.7-10.4) Magnesium Level 2.1 mg/dL (1.6-2.6) Total Bilirubin 0.5 mg/dL (0.2-1.0) Aspartate Amino Transferase (AST) 18 U/L (13-40) Alanine Aminotransferase (ALT) 25 U/L (7-40) Alkaline Phosphatase 63 U/L (46-116) Total Protein 5.8 g/dL (5.7-8.2) Albumin 3.6 g/dL (3.2-4.8) Triglycerides Level 98 mg/dL (< 150) Cholesterol Level 159 mg/dL (< 200) LDL Cholesterol 103 mg/dL (< 100) HDL Cholesterol 40 mg/dL (40-59) Thyroid Stimulating Hormone (TSH) 2.81 uIU/mL (0.55-4.78) Hepatitis B Surface Antigen Negative (Negative) Hepatitis C Antibody Negative (Negative) Urine Color Yellow (Yellow) Urine Clarity Turbid (Clear) Urine pH 5.5 (5.0-9.0) Urine Specific [place] 1.014 (1.001-1.035) Urine Protein Negative (Negative) Urine Ketones Negative (Negative) Urine Blood Negative /uL (Negative) Urine Nitrite 2+ (Negative) Urine Bilirubin Negative (Negative) Urine Urobilinogen Normal mg/dL (Negative) Urine Leukocyte Esterase 3+ /uL (Negative) Urine RBC 2 /hpf (0 - 4) Urine WBC 51 /hpf (0 - 5) Urine Squamous Epithelial Cells Few /hpf (<5) Urine Amorphous Crystals Few /hpf (None Seen) Urine Bacteria Many /hpf (None Seen) Urine Hyaline Casts Few /lpf (0 - 2) Urine Mucus Few (None Seen) Urine Glucose Normal mg/dL (Normal) Troponin I High Sensitivity 4 ng/L (</=34) Test 08/29/24 11:45 Prothrombin Time 11.0 sec (9.3-11.8) Prothrombin Time INR 1.04 (0.9-1.15) Activated Partial Thromboplast Time 26.1 SEC (24.5-34.5) B-Type Natriuretic Peptide 126.91 pg/mL (0-100) Other Laboratory Tests 08/31/24 05:15 Brief Hx & Hospital Course: Final diagnoses: Chest pain due to musculoskeletal pain due to muscle spasm UTI due to E coli ESBL Hypertension Hypotension now Acute kidney injury due to vasomotor nephropathy Hypothyroidism Rheumatoid Arthritis History of ESBL UTI 78-year-old female who was admitted initially for upper back pain and chest pain. Her pain appeared to be musculoskeletal with tenderness and muscle spasm in the neck muscles. She was seen by Cardiology and no cardiac workup is needed She also had a UTI She has a history of UTI in the past and therefore she was given IV Rocephin but the urine culture showed E coli ESBL resistant to Rocephin so it was changed to meropenem The patient has been doing well since then She is asymptomatic and afebrile She can finish her treatment for the UTI at home Her culture showed sensitivity to Bactrim and therefore she will be sent on Bactrim DS twice a day for 10 days and resume other home medications Follow up with her primary care physician as soon as possible Condition at Discharge: Stable Final Diagnosis/Problems List Chest pain, musculoskeletal due to muscle spasm UTI with ESBL Hypertension Hypotension now Acute kidney injury due to vasomotor nephropathy Hypothyroidism Rheumatoid Arthritis History of ESBL UTI Discharge Disposition: Home SNF Discharge Will this Physician continue t: No Discharge Instruct/Medications Diet: Cardiac 2g Na,low cholest Activity: No Restrictions, As Tolerated Follow Up/Referral: PCP [facility] Medications: Bactrim DS bid x 10 days Resume other home medications Discharge Statement: "Patient was advised to return to the ER or call 911 if any headaches, dizziness, shortness of breath, chest pain, abdominal pain, bleeding, fevers, or worsening of medical condition. Patient was counseled about treatment plan, medications, possible side effects, patientverbalized understanding. All questions were answered to the best of my ability. This discharge took greater then 30 minutes in planning, reviewing documentation, counseling the patient, and discussing with other team members." ASSESSMENT ASSESSMENT Assessment Chest pain, musculoskeletal due to muscle spasm UTI with ESBL Hypertension Hypotension now Acute kidney injury due to vasomotor nephropathy Hypothyroidism Rheumatoid Arthritis History of ESBL UTI Date of Service: Sep 02, 2024 Billing Provider: PIERCE CLAIRE MD Common Visit Codes: 19060-PPU/OBS DISCH DAY >30min PIERCE CLAIRE MD Sep 02, 2024 09:41
[2024-09-02 11:13] VITALS: BP 107/66; PULSE 79; RESP 16; TEMP 97.8; O2SAT 91
[2024-09-02 13:05] VITALS: BP_SYST 137; BP_SYST 141; BP_DIAS 64; BP_DIAS 93; PULSE 73; RESP 17; TEMP 97.7; O2SAT 95
[2024-09-02] MEDS ORDERED: PRED20TA2 PO (17:01)
== END 2024-09-02 15:10 | disposition home health service (06) | DRG 555 ==
LOC: ER 11:34 → TELE 16:33 → EEVIPCON 16:33 → ER 16:45 → TELE 16:45 → TELE-CENTR 21:20
PROVIDERS: ADMIT Nurse Practitioner Family; ATTEND Internal Medicine Geriatric Medicine
DX: M62.838 Other muscle spasm (principal); N17.0 Acute kidney failure with tubular necrosis; N39.0 Urinary tract infection, site not specified; I24.9 Acute ischemic heart disease, unspecified; Z16.19 Resistance to other specified beta lactam antibiotics; Z16.12 Extended spectrum beta lactamase (ESBL) resistance; I95.9 Hypotension, unspecified; I10 Essential (primary) hypertension; E03.9 Hypothyroidism, unspecified; M06.9 Rheumatoid arthritis, unspecified; M54.50 Low back pain, unspecified; B96.20 Unspecified Escherichia coli [E. coli] as the cause of diseases classified elsewhere; Z87.440 Personal history of urinary (tract) infections; Z79.899 Other long term (current) drug therapy; Z90.49 Acquired absence of other specified parts of digestive tract; Z98.891 History of uterine scar from previous surgery
CPT/HCPCS: 36415; 71045; 80053; 80061; 81001; 83735; 83880; 84443; 84484; 85025; 85610; 85730; 86803; 87086; 87340; 93005; 93306; 96374; 96375; G0378; J2185; J2405

== ENCOUNTER → 2024-09-12 | Outpatient (CLI) | payer MEDICARE, OTHER ==
[~2024-09-12] MED LIST changes: +BACDST PO; -BUME2TAB5 PO; -CHOL20004 PO; -GABA300T4 PO; -LEVO50TA7 PO; -METH0.4I2 SC; +PRED20TA2 PO
[2024-09-12 08:29] LABS: Basophils # (auto) 0 10 ^3/uL (0-0.2); Basophils % (auto) 0.3 % (0.0-2.0); Eosinophils # (auto) 0 10 ^3/uL (0-0.8); Eosinophils % (auto) 0.4 % (0.0-7.0); Hematocrit 35.2 % (36.0-46.0); Hemoglobin 11.6 g/dL (12.2-16.2); Lymphocytes # (auto) 2.8 10 ^3/uL (0.4-5.4); Lymphocytes % (auto) 20.9 % (10.0-50.0); Mean Corpuscular Hemoglobin 32.5 pg (28.0-32.0); Mean Corpuscular Hgb Conc. 32.9 g/dL (32.0-36.0); Mean Corpuscular Volume 98.8 fL (80.0-100.0); Monocytes # (auto) 0.8 10 ^3/uL (0-1.3); Monocytes % (auto) 5.9 % (0.0-12.0); Neutrophils # (auto) 9.6 10 ^3/uL (1.6-8.6); Neutrophils % (auto) 72.5 % (37.0-80.0); Platelet Count (auto) 290 10^3/uL (140-450); Red Blood Cells 3.56 10^6/uL (4.0-5.20); Red Cell Distribution Width 14.3 % (11.8-14.3); White Blood Cell 13.2 10^3/uL (4.4-10.8)
[2024-09-12 08:47] LABS: Alanine Aminotransferase 15 U/L (7-40); Albumin 4.1 g/dL (3.2-4.8); Alkaline Phosphatase 66 U/L (46-116); Anion Gap 7 (5-15); Aspartate Aminotransferase 13 U/L (13-40); BUN/Creatinine Ratio 11.9 (10.0-20.0); Blood Urea Nitrogen 16 mg/dL (9-23); CRP High Sensitivity 0.47 mg/dL (<1.0); Calcium 9.8 mg/dL (8.7-10.4); Carbon Dioxide 27 mmol/L (20-31); Glucose 85 mg/dL (74-106); Potassium 3.9 mmol/L (3.5-5.1); Sodium 143 mmol/L (136-145)
[2024-09-12 08:48] LABS: Bilirubin, Total 0.4 mg/dL (0.2-1.0); Total Protein 6.6 g/dL (5.7-8.2)
[2024-09-12 08:50] LABS: Chloride 109 mmol/L (98-107)
[2024-09-12 10:36] LABS: Erythrocyte Sedimentation Rate 28 mm/hr (0-20)
[2024-09-13 08:06] LABS: Rheumatoid Arthritis Factor <10.0 IU/mL (<14.0)
== END | disposition home or self-care (01) ==
LOC: LAB 07:57
PROVIDERS: ATTEND Internal Medicine Rheumatology
DX: M06.9 Rheumatoid arthritis, unspecified (principal); Z79.899 Other long term (current) drug therapy
CPT/HCPCS: 36415; 80053; 85025; 85652; 86141; 86200; 86431

== ENCOUNTER → 2024-11-08 | Outpatient (CLI) | payer MEDICARE, OTHER ==
[2024-11-08 09:13] LABS: Basophils # (auto) 0 10 ^3/uL (0-0.2); Basophils % (auto) 0.8 % (0.0-2.0); Eosinophils # (auto) 0 10 ^3/uL (0-0.8); Eosinophils % (auto) 0.4 % (0.0-7.0); Hematocrit 35.4 % (36.0-46.0); Hemoglobin 11.7 g/dL (12.2-16.2); Lymphocytes # (auto) 1.3 10 ^3/uL (0.4-5.4); Lymphocytes % (auto) 20.4 % (10.0-50.0); Mean Corpuscular Hemoglobin 31.4 pg (28.0-32.0); Mean Corpuscular Hgb Conc. 33.1 g/dL (32.0-36.0); Mean Corpuscular Volume 95.1 fL (80.0-100.0); Monocytes # (auto) 0.4 10 ^3/uL (0-1.3); Monocytes % (auto) 6.4 % (0.0-12.0); Neutrophils # (auto) 4.7 10 ^3/uL (1.6-8.6); Nucleated Red Blood Cells % 0.1 %; Platelet Count (auto) 223 10^3/uL (140-450); Red Blood Cells 3.73 10^6/uL (4.0-5.20); Red Cell Distribution Width 14.9 % (11.8-14.3); White Blood Cell 6.5 10^3/uL (4.4-10.8)
[2024-11-08 09:44] LABS: Urine Bacteria MANY /hpf (None Seen); Urine Blood Negative /uL (Negative); Urine Clarity Turbid (Clear); Urine Color Yellow (Yellow); Urine Hyaline Cast FEW /lpf (0 - 2); Urine Mucus FEW (None Seen); Urine Protein, UAD Negative (Negative); Urine Specific Gravity 1.015 (1.001-1.035); Urine Squamous Epithelial Cell FEW /hpf (<5); Urine Urobilinogen Normal (Negative); Urine WBC 92 /HPF (0-5)
[2024-11-08 09:57] LABS: Albumin 4.2 g/dL (3.2-4.8); Alkaline Phosphatase 57 U/L (46-116); Anion Gap 8 (5-15); Aspartate Aminotransferase 33 U/L (13-40); BUN/Creatinine Ratio 9.3 (10.0-20.0); Blood Urea Nitrogen 10 mg/dL (9-23); Calcium 9.5 mg/dL (8.7-10.4); Carbon Dioxide 27 mmol/L (20-31); Cholesterol 141 mg/dL (< 200); Glucose 94 mg/dL (74-106); LDL Cholesterol 79 mg/dL (< 100); Potassium 3.7 mmol/L (3.5-5.1); Sodium 145 mmol/L (136-145); Triglycerides 96 mg/dL (< 150)
[2024-11-08 09:58] LABS: Bilirubin, Total 0.4 mg/dL (0.2-1.0); HDL Cholesterol 50 mg/dL (40-59); Total Protein 6.3 g/dL (5.7-8.2)
[2024-11-08 10:12] LABS: Alanine Aminotransferase 51 U/L (7-40); Chloride 110 mmol/L (98-107)
== END | disposition home or self-care (01) ==
LOC: LAB 08:44
PROVIDERS: ATTEND Student in an Organized Health Care Education/Training Program
DX: I10 Essential (primary) hypertension (principal); R73.9 Hyperglycemia, unspecified; E03.8 Other specified hypothyroidism
CPT/HCPCS: 36415; 80053; 80061; 81001; 83036; 84439; 84443; 85025

== ENCOUNTER 2024-12-22 06:04 | Day surgery (SDC) | payer MEDICARE, OTHER ==
[2024-12-19 10:06] LABS: Basophils # (auto) 0.1 10 ^3/uL (0-0.2); Basophils % (auto) 0.6 % (0.0-2.0); Eosinophils # (auto) 0.2 10 ^3/uL (0-0.8); Eosinophils % (auto) 1.8 % (0.0-7.0); Hematocrit 35.3 % (36.0-46.0); Hemoglobin 11.8 g/dL (12.2-16.2); Lymphocytes % (auto) 20.4 % (10.0-50.0); Mean Corpuscular Hemoglobin 31.6 pg (28.0-32.0); Mean Corpuscular Hgb Conc. 33.3 g/dL (32.0-36.0); Mean Corpuscular Volume 94.7 fL (80.0-100.0); Monocytes # (auto) 0.6 10 ^3/uL (0-1.3); Neutrophils # (auto) 6.8 10 ^3/uL (1.6-8.6); Neutrophils % (auto) 71.2 % (37.0-80.0); Nucleated Red Blood Cells % 0.1 %; Platelet Count (auto) 242 10^3/uL (140-450); Red Blood Cells 3.73 10^6/uL (4.0-5.20); Red Cell Distribution Width 15.9 % (11.8-14.3); White Blood Cell 9.6 10^3/uL (4.4-10.8)
[2024-12-19 10:27] LABS: Alanine Aminotransferase 35 U/L (7-40); Alkaline Phosphatase 70 U/L (46-116); Anion Gap 7 (5-15); Calcium 9.5 mg/dL (8.7-10.4); Carbon Dioxide 26 mmol/L (20-31); Potassium 3.8 mmol/L (3.5-5.1); Sodium 145 mmol/L (136-145)
[2024-12-19 10:28] LABS: BUN/Creatinine Ratio 14.7 (10.0-20.0); Blood Urea Nitrogen 15 mg/dL (9-23); Glucose 76 mg/dL (74-106); INR 1.02 (0.9-1.15); Partial Thromboplastin Time 27.3 SEC (24.5-34.5); Prothrombin Time 10.8 sec (9.3-11.8)
[2024-12-19 10:29] LABS: Total Protein 6.8 g/dL (5.7-8.2)
[2024-12-19 10:30] LABS: Albumin 4.4 g/dL (3.2-4.8); Aspartate Aminotransferase 20 U/L (13-40); Bilirubin, Total 0.4 mg/dL (0.2-1.0)
[2024-12-19 10:31] LABS: Urine Bacteria MOD /hpf (None Seen); Urine Blood Negative /uL (Negative); Urine Clarity Clear (Clear); Urine Color Light-Yellow (Yellow); Urine Protein, UAD Negative (Negative); Urine Specific Gravity 1.013 (1.001-1.035); Urine Squamous Epithelial Cell FEW /hpf (<5); Urine Urobilinogen Normal (Negative); Urine WBC 32 /HPF (0-5); Urine pH 5.5 (5.0-9.0)
[2024-12-19 10:38] LABS: Chloride 112 mmol/L (98-107)
[~2024-12-22] VITALS: Ht 157.5 cm; Wt 83.9 kg
[~2024-12-22 06:04] MED LIST changes: +ALPR0.255 PO; -BACDST PO; +BUME2TAB5 PO; +CIPR500T4 PO; -FER325T PO; -FLUT50SP31 EACHNOSTRI; +GABA-1250 PO; -PRED20TA2 PO
[2024-12-22] MEDS ORDERED: fentaNYL CITRATE 100 MCG/2 ML VL ONE (06:11)
[2024-12-22] MEDS ORDERED: PROPOFOL 10 MG/ML 20 ML IV ONE (06:12)
[2024-12-22] MEDS ORDERED: ETOMIDATE (2MG/ML) 20ML VIAL IV ONE (06:12)
[2024-12-22] MEDS ORDERED: GLYCOPYRROLATE 0.2 MG/ML 1ML VIAL ONE (06:12)
[2024-12-22] MEDS ORDERED: LIDOCAINE 2% (LOCAL ANESTH.) PF 5ml SDV ONE (06:12)
[2024-12-22] MEDS ORDERED: HYDROCORTISONE SOD SUCC 100 MG/2ML INJ VIAL ONE (06:12)
[2024-12-22] MEDS ORDERED: ONDANSETRON HCL 4 MG/2 ML VIAL ONE (06:12)
[2024-12-22] MEDS ORDERED: CONJ ESTROGENS 0.625MG/GM VAG CRM 30GM PV ONE (06:16)
[2024-12-22] MEDS ORDERED: ceFAZolin 1GM VL ONE (06:26)
[2024-12-22] MEDS ORDERED: MEPERIDINE HCL (50 MG/ML) 1 ML VIAL ONE (06:50)
[2024-12-22] MEDS ORDERED: ePHEDrine SULFATE 50 MG/ML AMP ONE (06:58)
[2024-12-22] MEDS ORDERED: KETOROLAC TROMETH 30 MG/ML 1ML VIAL ONE (07:02)
--- NOTE | 2024-12-22 07:59 | DVHDS2 ---
New Physician D'charge PN Admitting Diagnosis Admitting Diagnosis SEBASTIAN Discharge Diagnosis same Operations or Procedures sling operation Reason(s) For Hospitalization Surgery Treatment Plan Discharge Condition of Discharge Fair Disposition Home Discharge Instructions Diet: Regular Activity: Light activity Activity comment: Hays care Medications: given Follow Up Care Follow Up/Referral: Vaginal packing removal and hays removal on 12/23/24 Discharge Statement: "Patient was advised to return to the ER or call 911 if any headaches, dizzine ss, shortness of breath, chest pain, abdominal pain, bleeding, fevers, or worsening of medical condition. Patient was counseled about treatment plan, medications, possible side effects, patientverbalized understanding. All questions were answered to the best of my ability. This discharge took greater then 30 minutes in planning, reviewing documentation, counseling the patient, and discussing with other team members." SARA CRUZ MD Dec 22, 2024 07:59
[2024-12-22] MEDS: Lidocaine/Epinephrine 1%-1:100,000 30ML VL ONE (08:30)
[2024-12-22 09:01] VITALS: PULSE 100; RESP 10; TEMP 97.1; O2SAT 98
[2024-12-22] MEDS ORDERED: HYDROmorphone HCL 2 MG/ML VL/or syr IV PRN (09:15)
[2024-12-22] MEDS ORDERED: ONDANSETRON HCL 4 MG/2 ML VIAL IV ONE (09:15)
[2024-12-22 09:46] VITALS: BP 122/62; PULSE 95; RESP 16; O2SAT 95
== END 2024-12-22 10:00 | disposition home or self-care (01) ==
LOC: SUR 06:04
PROVIDERS: ATTEND Urology
DX: N39.3 Stress incontinence (female) (male) (principal); I10 Essential (primary) hypertension; J44.9 Chronic obstructive pulmonary disease, unspecified; E03.9 Hypothyroidism, unspecified; Z79.899 Other long term (current) drug therapy; Z79.890 Hormone replacement therapy; Z98.890 Other specified postprocedural states
CPT/HCPCS: 36415; 57288; 80053; 81001; 85025; 85610; 85730; 87086; 87088; 87186; C1771; J0690; J1720; J1885; J2003; J2175; J2405; J2704; J3010

== ENCOUNTER 2025-03-15 11:09 | Outpatient (CLI) | payer MEDICARE, OTHER ==
[2025-03-15 11:27] LABS: Urine Bacteria MANY /hpf (None Seen); Urine Blood Negative /uL (Negative); Urine Clarity Turbid (Clear); Urine Color Light-Yellow (Yellow); Urine Protein, UAD Negative (Negative); Urine Specific Gravity 1.013 (1.001-1.035); Urine Squamous Epithelial Cell FEW /hpf (<5); Urine Urobilinogen Normal (Negative); Urine WBC 403 /HPF (0-5); Urine WBC Clumps PRESENT /hpf (None Seen); Urine pH 7.5 (5.0-9.0)
== END 2025-03-15 17:00 | disposition home or self-care (01) ==
LOC: LAB 11:09
PROVIDERS: ATTEND Internal Medicine Nephrology
DX: E11.22 Type 2 diabetes mellitus with diabetic chronic kidney disease (principal); N18.30 Chronic kidney disease, stage 3 unspecified; E11.21 Type 2 diabetes mellitus with diabetic nephropathy; N39.0 Urinary tract infection, site not specified; E21.3 Hyperparathyroidism, unspecified; E55.9 Vitamin D deficiency, unspecified; M10.9 Gout, unspecified; R80.9 Proteinuria, unspecified; D63.1 Anemia in chronic kidney disease
CPT/HCPCS: 81001; 87086

== ENCOUNTER 2025-05-19 11:17 | Outpatient (CLI) | payer MEDICARE, OTHER ==
[2025-05-19 11:42] LABS: Hematocrit 39.0 % (36.0-46.0); Hemoglobin 13.0 g/dL (12.2-16.2); Mean Corpuscular Hemoglobin 30.2 pg (28.0-32.0); Mean Corpuscular Volume 90.6 fL (80.0-100.0); Nucleated Red Blood Cells % 0.0 %
[2025-05-19 11:57] LABS: Alanine Aminotransferase 15 U/L (7-40); Alkaline Phosphatase 62 U/L (46-116); Anion Gap 9 (5-15); BUN/Creatinine Ratio 13.3 (10.0-20.0); Blood Urea Nitrogen 15 mg/dL (9-23); Calcium 9.2 mg/dL (8.7-10.4); Carbon Dioxide 25 mmol/L (20-31); Glucose 99 mg/dL (74-106); Potassium 4.1 mmol/L (3.5-5.1); Sodium 144 mmol/L (136-145); Total Protein 6.7 g/dL (5.7-8.2)
[2025-05-19 11:58] LABS: Albumin 4.4 g/dL (3.2-4.8); Bilirubin, Total 0.4 mg/dL (0.2-1.0); Cholesterol 180 mg/dL (< 200); HDL Cholesterol 44 mg/dL (40-59)
[2025-05-19 12:00] LABS: Chloride 110 mmol/L (98-107); Triglycerides 178 mg/dL (< 150)
== END 2025-05-19 17:00 | disposition home or self-care (01) ==
LOC: LAB 11:17
PROVIDERS: ATTEND Licensed Practical Nurse
DX: I13.0 Hypertensive heart and chronic kidney disease with heart failure and stage 1 through stage 4 chronic kidney disease, or unspecified chronic kidney disease (principal); N18.31 Chronic kidney disease, stage 3a; I50.9 Heart failure, unspecified; M05.9 Rheumatoid arthritis with rheumatoid factor, unspecified; E66.01 Morbid (severe) obesity due to excess calories
CPT/HCPCS: 36415; 80053; 80061; 82043; 85025

== ENCOUNTER 2025-05-23 07:24 | Outpatient (CLI) | payer MEDICARE, OTHER ==
[2025-05-23 07:39] LABS: Hematocrit 38.7 % (36.0-46.0); Hemoglobin 13.2 g/dL (12.2-16.2); Mean Corpuscular Hemoglobin 30.7 pg (28.0-32.0); Mean Corpuscular Volume 89.8 fL (80.0-100.0); Nucleated Red Blood Cells % 0.0 %
[2025-05-23 08:13] LABS: Urine Protein, UAD Negative (Negative)
[2025-05-23 08:32] LABS: Alanine Aminotransferase 16 U/L (7-40); Albumin 4.4 g/dL (3.2-4.8); Alkaline Phosphatase 61 U/L (46-116); Anion Gap 9 (5-15); BUN/Creatinine Ratio 12.4 (10.0-20.0); Bilirubin, Direct 0.1 mg/dL (<0.3); Bilirubin, Total 0.4 mg/dL (0.2-1.0); Blood Urea Nitrogen 13 mg/dL (9-23); Calcium 9.1 mg/dL (8.7-10.4); Carbon Dioxide 25 mmol/L (20-31); Cholesterol 179 mg/dL (< 200); Glucose 98 mg/dL (74-106); HDL Cholesterol 51 mg/dL (40-59); Potassium 3.8 mmol/L (3.5-5.1); Total Protein 6.6 g/dL (5.7-8.2); Triglycerides 92 mg/dL (< 150)
[2025-05-23 08:35] LABS: Chloride 112 mmol/L (98-107); Sodium 146 mmol/L (136-145)
== END 2025-05-23 17:00 | disposition home or self-care (01) ==
LOC: LAB 07:24
PROVIDERS: ATTEND Internal Medicine Cardiovascular Disease
DX: I10 Essential (primary) hypertension (principal); E11.9 Type 2 diabetes mellitus without complications; E55.9 Vitamin D deficiency, unspecified; D51.3 Other dietary vitamin B12 deficiency anemia; D64.9 Anemia, unspecified; R00.2 Palpitations; R53.1 Weakness; R30.0 Dysuria
CPT/HCPCS: 36415; 80048; 80061; 80076; 81003; 83036; 84443; 85025

== ENCOUNTER 2025-06-02 10:22 | Outpatient (CLI) | payer MEDICARE, OTHER ==
[2025-06-02 10:17] VITALS: BP 140/85; PULSE 84; RESP 20; O2SAT 92
[2025-06-02] MEDS ORDERED: MEROPENEM 1GM IVPB 50 ML IV ONE (10:30)
[2025-06-02] MEDS: MEROPENEM 1GM IVPB 100 ML IV ONE (11:05)
[2025-06-02] MEDS: MEROPENEM 1GM IVPB 50 ML IV ONE (11:30)
[2025-06-02 12:38] VITALS: BP 146/85; PULSE 75; RESP 20; O2SAT 92
== END 2025-06-02 17:00 | disposition home or self-care (01) ==
LOC: CHF HDHVI 10:22
PROVIDERS: ATTEND Internal Medicine Cardiovascular Disease
DX: N39.0 Urinary tract infection, site not specified (principal); I13.0 Hypertensive heart and chronic kidney disease with heart failure and stage 1 through stage 4 chronic kidney disease, or unspecified chronic kidney disease; E11.22 Type 2 diabetes mellitus with diabetic chronic kidney disease; I50.9 Heart failure, unspecified; N18.31 Chronic kidney disease, stage 3a; M06.9 Rheumatoid arthritis, unspecified; D51.3 Other dietary vitamin B12 deficiency anemia
CPT/HCPCS: 96365; 96366; G0463; J2185

== ENCOUNTER 2025-06-05 12:59 | Outpatient (CLI) | payer MEDICARE, OTHER ==
[2025-06-05 13:10] VITALS: BP 121/74; PULSE 98; RESP 20; O2SAT 92
[2025-06-05] MEDS: MEROPENEM 1GM IVPB 100 ML IV ONE (13:30)
[2025-06-05] MEDS: MEROPENEM 1GM IVPB 50 ML IV ONE ×2 (13:35→14:10)
[2025-06-05 15:44] VITALS: BP 143/72; PULSE 85; RESP 18; O2SAT 92
== END 2025-06-05 17:00 | disposition home or self-care (01) ==
LOC: CHF HDHVI 12:59
PROVIDERS: ATTEND Internal Medicine Cardiovascular Disease
DX: N39.0 Urinary tract infection, site not specified (principal); I13.0 Hypertensive heart and chronic kidney disease with heart failure and stage 1 through stage 4 chronic kidney disease, or unspecified chronic kidney disease; E11.22 Type 2 diabetes mellitus with diabetic chronic kidney disease; I50.9 Heart failure, unspecified; N18.31 Chronic kidney disease, stage 3a; J44.9 Chronic obstructive pulmonary disease, unspecified; M06.9 Rheumatoid arthritis, unspecified; E66.01 Morbid (severe) obesity due to excess calories; Z68.35 Body mass index [BMI] 35.0-35.9, adult; Z79.899 Other long term (current) drug therapy
CPT/HCPCS: 96365; 96366; G0463; J2185

== ENCOUNTER 2025-06-06 10:48 | Outpatient (CLI) | payer MEDICARE, OTHER ==
[2025-06-06 10:55] VITALS: BP 132/70; PULSE 103; RESP 16; O2SAT 93
[2025-06-06] MEDS: MEROPENEM 1GM IVPB 100 ML IV ONE (11:17)
[2025-06-06] MEDS: MEROPENEM 1GM IVPB 50 ML IV ONE ×2 (11:18→12:00)
[2025-06-06 13:24] VITALS: BP 126/62; PULSE 94; RESP 16; O2SAT 93
== END 2025-06-06 17:00 | disposition home or self-care (01) ==
LOC: CHF HDHVI 10:48
PROVIDERS: ATTEND Internal Medicine Cardiovascular Disease
DX: N39.0 Urinary tract infection, site not specified (principal); I13.0 Hypertensive heart and chronic kidney disease with heart failure and stage 1 through stage 4 chronic kidney disease, or unspecified chronic kidney disease; E11.22 Type 2 diabetes mellitus with diabetic chronic kidney disease; N18.31 Chronic kidney disease, stage 3a; I50.9 Heart failure, unspecified; J44.9 Chronic obstructive pulmonary disease, unspecified; M06.9 Rheumatoid arthritis, unspecified; D51.3 Other dietary vitamin B12 deficiency anemia; E66.01 Morbid (severe) obesity due to excess calories; Z68.35 Body mass index [BMI] 35.0-35.9, adult; Z79.899 Other long term (current) drug therapy
CPT/HCPCS: 96365; 96366; G0463; J2185

== ENCOUNTER 2025-07-31 09:21 | Outpatient (CLI) | payer MEDICARE, OTHER ==
[2025-07-31 09:44] LABS: Hematocrit 38.9 % (36.0-46.0); Hemoglobin 12.7 g/dL (12.2-16.2); Mean Corpuscular Hemoglobin 29.9 pg (28.0-32.0); Mean Corpuscular Volume 91.9 fL (80.0-100.0); Nucleated Red Blood Cells % 0.0 %
[2025-07-31 10:27] LABS: Alanine Aminotransferase 16 U/L (7-40); Albumin 4.2 g/dL (3.2-4.8); Alkaline Phosphatase 62 U/L (46-116); Anion Gap 9 (5-15); BUN/Creatinine Ratio 14.2 (10.0-20.0); Blood Urea Nitrogen 21 mg/dL (9-23); Calcium 9.2 mg/dL (8.7-10.4); Carbon Dioxide 27 mmol/L (20-31); Glucose 101 mg/dL (74-106); Potassium 4.7 mmol/L (3.5-5.1); Total Protein 6.8 g/dL (5.7-8.2)
[2025-07-31 10:28] LABS: Bilirubin, Total 0.4 mg/dL (0.2-1.0)
[2025-07-31 10:29] LABS: Chloride 109 mmol/L (98-107); Sodium 145 mmol/L (136-145)
== END 2025-07-31 17:00 | disposition home or self-care (01) ==
LOC: LAB 09:21
PROVIDERS: ATTEND Internal Medicine Rheumatology
DX: M81.0 Age-related osteoporosis without current pathological fracture (principal); M06.9 Rheumatoid arthritis, unspecified
CPT/HCPCS: 36415; 80053; 85025

== ENCOUNTER 2025-08-20 16:21 | Emergency (ER) | payer MEDICARE, OTHER ==
[~2025-08-20] VITALS: Ht 157.5 cm; Wt 85.0 kg
--- NOTE | 2025-08-20 17:34 | DVH ---
CLINICAL INDICATION: fall TECHNIQUE: 9 radiographic views of the 8 views of the right and left ribs with a single view of the chest were obtained. Comparison: None FINDINGS/IMPRESSION: No pneumothorax no pleural effusions. No displaced rib fractures. 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
--- NOTE | 2025-08-20 17:38 | ED.PDOC ---
History of Present Illness HPI Comments This is a 79-year-old female that comes in with the rib pain on the right side. Apparently she got up today and fell on the right side her knees gave out. She did not hit her head there was no loss of conscious no other symptoms but does have pain in the right ribs. Chief Complaint: Rib Pain Time Seen by MD: 17:35 Primary Care Provider: DUSTY Willett Notes: Nurses Notes, Medications, Allergies Allergies: Coded Allergies: No Known Drug Allergy (Unverified Allergy, Unknown, 11/26/22) Home Meds Reported Medications Gabapentin (Gabapentin) 300 Mg Cap, 300 MG PO for 30 Days, MG 12/19/24 Alprazolam (Alprazolam) 0.25 Mg Tab, 0.25 MG PO PRN, TAB 12/19/24 Ciprofloxacin Hcl (Ciprofloxacin Hcl) 500 Mg Tab, 500 MG PO Q12HR, MG 12/19/24 Bumetanide (Bumetanide) 2 Mg Tab, 2 MG PO DAILY for 30 Days, MG 12/19/24 Cholecalciferol (D3 2000) 2,000 Unit Tab, 1 CAP PO DAILY for 90 Days, #90 08/31/24 Methotrexate (Methotrexate) 2.5 Mg Tab, 3 TAB PO QWEEKLY for 90 Days, #36 08/31/24 Levothyroxine Sodium (Levothyroxine Sodium) 100 Mcg Tab, 1 TAB PO QAM for 90 Days, #90 08/31/24 Folic Acid (Folic Acid) 1 Mg Tab, 1 MG PO DAILY, TAB 07/08/24 Metoprolol Succinate (Metoprolol Succinate Er) 25 Mg Tab, 1 TAB PO DAILY for 90 Days, #90 07/27/15 Information Source: Patient, Relative (Sibling) Mode of Arrival: Wheelchair Past Medical History PAST MEDICAL HISTORY: Arthritis, HTN, Thyroid, UTI'S Surgical History: Cholecystectomy, , Tubal Ligation [employer] History: No Pertinent [employer] [employer] History Family History Family History: Reviewed,noncontributory to illness Social History Smoker: Non-Smoker Alcohol: Denies ETOH Use Drugs: Denies Drug Use Lives In: Home Musculoskeletal: reports: others (Right rib pain) All Other Systems: Reviewed and Negative Physical Exam General Appearance: No Apparent Distress, Normal, Thin HEENT: Normal ENT Inspection, PERRL/EOMI, Pharynx Normal Neck: Full Range of Motion, Non-Tender, Normal Inspection Respiratory: Lungs Clear, No Respiratory Distress, Normal Breath Sounds (Tenderness right anterior ribs, ), Other Cardiovascular: Regular Rate/Rhythm Breast Exam: Deferred Gastrointestinal: Non Tender, Soft Genitalia: Deferred Pelvic: Deferred Rectal: Deferred Extremities: Normal inspection, Normal range of motion, Non-tender Neurologic: Alert, Normal Affect, Normal Mood Cerebellar Function: Normal Reflexes: Normal Skin: Dry, Warm Lymphatic: No Adenopathy Was a procedure done? Was a procedure done?: No Differential Dx Considerations may include: Rib fracture, pneumothorax X-Ray, Labs, Meds, VS Vital Signs Date Time Temp Pulse Resp B/P (MAP) Pulse Ox O2 Delivery O2 Flow Rate FiO2 08/20/25 17:39 98.4 78 16 136/86 (103) 98 98.4 08/20/25 17:39 78 16 98 Room Air 08/20/25 16:22 97.6 76 16 155/78 96 97.6 X-Ray, Labs, Meds, VS Comment Patient seen and examined by me. Patient had a fall landing on the ground her legs were weak when she stood up. X-ray was done to rule out a fracture came back negative. Patient was given a Beulah here for pain she will be sent home with some anti-inflammatories. I have explained to her that it is normal to be sore for the next four five days probably a week before she starts to feel better she is encouraged to take deep breast to make sure she does not end up with pneumonia. ORDERING PHYSICIAN: ELIUD CLARK [employer]HIC[employer]ING AND [employer]ENTAL MANAGER PROCEDURE(s): RIBBI - RIBS BILATERAL REASON: fall ORDER NUMBER(s): [id number], ACCESSION NUMBER(s): [id number] CLINICAL INDICATION: fall TECHNIQUE: 9 radiographic views of the 8 views of the right and left ribs with a single view of the chest were obtained. Comparison: None FINDINGS/IMPRESSION: No pneumothorax no pleural effusions. No displaced rib fractures. 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 ATED BY: NORRIS CHERY Jr., DO DICTATED DATE/TIME: 08/20/25 6001 SIGNED BY: NORRIS CHERY Jr., Time of 1ST Reevaluation: 17:43 Reevaluation 1ST: Improved Patient Education/Counseling: Diagnosis, Treatment, Prognosis, Need For Follow Up Family Education/Counseling: Diagnosis, Treatment, Prognosis, Need For Follow Up SEPSIS Sepsis Screen Date sepsis recognized/suspect: Aug 20, 2025 Time Sepsis recognized/suspect: 1623 Recent Procedure: No On Antibiotic Therapy: No Respiratory Rate >20: No Heart Rate >90: No Temp<36 C (96.8 F) or >38.3 C: No SBP <90 or MAP <65 mmHG: No New Acute Mental Status Change: No Is the patient on CPAP, BIPAP,: No Physician Orders Ribs Bilateral (08/20/25 16:49) Hydrocodone-Acet 5/325mg Tab (Beulah 5/32 (08/20/25 17:45) Vital Signs Date Time Temp Pulse Resp B/P (MAP) Pulse Ox O2 Delivery O2 Flow Rate FiO2 08/20/25 17:39 98.4 78 16 136/86 (103) 98 98.4 08/20/25 17:39 78 16 98 Room Air 08/20/25 16:22 97.6 76 16 155/78 96 97.6 Departure 1 Departure Time of Disposition: 17:44 Impression: Primary Impression: Rib contusion Additional Impressions: Rib pain Fall Disposition: HOME / SELF CARE / HOMELESS Condition: Good Additional Instructions: Please take the Motrin with food the next couple of days this will help with pain and swelling It is normal to be sore for the next two weeks as things heal Your x-ray does not show any broken bones Make sure you use a pillow to splint take a deep breath every day and cough that way the you do not end up with pneumonia in your lung e-Prescriptions Ibuprofen Micronized (Ibuprofen) 600 Mg Tab 600 MG PO Q6HPRN PRN for 5 Days, #20 TAB Prov: ELIUD CLARK 08/20/25 Discharged With: Self, Relative (Sibling) Critical Care Note Critical Care Time?: No Stability Stability form required: ELIUD Obando Aug 20, 2025 17:38
[2025-08-20 17:39] VITALS: BP 136/86; PULSE 78; RESP 16; TEMP 98.4; O2SAT 98
[2025-08-20] MEDS ORDERED: IBUP1TAB5 PO (17:46)
[2025-08-20] MEDS: HYDROcodone-ACET 5/325MG TAB PO ONE (17:48)
== END 2025-08-20 17:56 | disposition home or self-care (01) ==
LOC: ER 16:21 → EEVIPCON 16:21 → ER 17:54
DX: S20.211A Contusion of right front wall of thorax, initial encounter (principal); R07.89 Other chest pain; I10 Essential (primary) hypertension; M19.90 Unspecified osteoarthritis, unspecified site; Z79.899 Other long term (current) drug therapy; Z79.890 Hormone replacement therapy; Z87.440 Personal history of urinary (tract) infections; Z90.49 Acquired absence of other specified parts of digestive tract; W19.XXXA Unspecified fall, initial encounter; Y93.89 Activity, other specified; Y92.89 Other specified places as the place of occurrence of the external cause; Y99.8 Other external cause status
CPT/HCPCS: 71111

== ENCOUNTER 2025-09-27 12:24 | Outpatient (CLI) | payer MEDICARE, OTHER ==
[~2025-09-27 12:24] MED LIST changes: +IBUP1TAB5 PO
--- NOTE | 2025-09-28 09:19 | DVH ---
Refer to Dr. Szymanski report
== END 2025-09-27 17:00 | disposition home or self-care (01) ==
LOC: Rad HDHVI 12:24
PROVIDERS: ATTEND Internal Medicine Cardiovascular Disease
DX: R60.0 Localized edema (principal)
CPT/HCPCS: 93925